=== PATIENT | female | born 1950 | race Caucasian/White ===

== ENCOUNTER → 2018-12-25 | Outpatient (CLI) | payer MEDICARE, OTHER, SELFPAY ==
[2018-12-25 08:56] LABS: Bacteria 0 SEEN /hpf (None Seen); Red Blood Cells-Urine 0 SEEN /hpf (0-5)
[2018-12-25 10:16] LABS: Absolute Lymphocyte Count 1.74 X10^3/uL (0.83-4.51); Absolute Neutrophil Count 5.6 X10^3/uL (2.0-7.7); Basophil# 0.06 X10^3/uL; Basophil% 0.7 % (0-1); Eosinophil# 0.28 X10^3/uL; Eosinophils% 3.4 % (0-5); Hematocrit 45.9 % (37-47); Hemoglobin 14.7 g/dL (12.0-15.0); Lymphocyte # 1.74 X10^3/ul (4.0); Lymphocyte % 21.3 % (19-41); Mean Corpuscular Hgb 28.8 pg (27.0-32.0); Mean Platelet Vol. 9.3 fl (6.2-12.0); Monocyte# 0.46 X10^3/uL; Monocyte% 5.6 % (0-10); NRBC Flagged by Analyzer 0 % (0-5); Neutrophil # 5.59 X10^3/uL (2.7-7.7); Neutrophil % 68.4 % (47-70); Platelet Count 321 K/mm3 (150-450); RBC Distribution Width CV 12.2 % (11.6-14.6); RBC Distribution Width SD 40.3 fl (35.1-43.9); White Blood Count 8.2 K/mm3 (4.4-11.0)
[2018-12-25 10:17] LABS: Color, Urine Yellow (Yellow); Glucose, Dipstick Normal (Normal); Ketone-Dipstick 5 mg/dl (Negative); Leukocyte Esterase-Dipstick 500 /ul (Negative); Nitrite-Dipstick Negative (Negative); Occult Blood-Urine 10 /ul (Negative); Protein-Dipstick 15 mg/dl (Negative); Specific Gravity, Urine 1.025 (1.002-1.030); Urine Bilirubin Dipstick Negative (Negative); Urine Clarity Sl. Cloudy (Clear); Urine Urobilinogen 1 mg/dl (Normal)
[2018-12-25 10:35] LABS: Hemoglobin A1c 5.8 % (4.2-6.3)
[2018-12-25 10:43] LABS: Hyaline Cast 10-25 SEEN /lpf (0-5); Squamous Epithelial Cells - UA 0-5 SEEN /hpf (5-10); White Blood Cells 5-10 SEEN /hpf (0-5)
[2018-12-25 10:44] LABS: Mucous, Urine 2+ /hpf (<or=2+)
[2018-12-25 10:49] LABS: ALB/GLOB Ratio 1.3 RATIO (0.9-2.4); AST(SGOT) 13 U/L (15-37); Alanine Aminotransfer ALT/SGPT 30 U/L (13-56); Albumin, Serum 3.8 g/dL (3.2-5.0); Alkaline Phosphatase 98 U/L (45-117); Anion Gap 5 (5-15); BUN 17 mg/dL (7-18); BUN/Creat Ratio 18.2 RATIO (10-20); Calcium,Total 8.9 mg/dL (8.5-10.1); Chloride 107 mmol/L (98-107); Creatinine, Serum 0.93 mg/dL (0.55-1.02); EST Glomerular Filtration Rate 64 mL/min (>60); Est Glom Filt Rate - Afr Amer 77 mL/min (>60); Globulin 2.9 g/dL (2.2-4.2); Glucose 67 mg/dL (74-106); Potassium 4.2 mmol/L (3.5-5.1); Protein, Total 6.7 g/dL (6.4-8.2); Sodium Level 142 mmol/L (136-145)
== END | disposition home or self-care (01) ==
LOC: MFPLAB 08:52
PROVIDERS: Family Provider Family Medicine; PCP Family Medicine; Referring Provider Family Medicine; Visit Provider Family Medicine
DX: R73.09 Other abnormal glucose (principal); N39.41 Urge incontinence
CPT/HCPCS: 36415; 80053; 81001; 83036; 85025

== ENCOUNTER → 2019-02-14 | Outpatient (CLI) | payer MEDICARE, OTHER, SELFPAY ==
--- NOTE | 2019-02-14 11:30 | LES_PTH ---
PATIENT: BELLA MONROY LOC: [facility] U#:[id number] AGE/SX: 69/F ROOM: RE02/14/[address]: Dr. Henrry Casey MD : 1950 BED: DIS: 02/14/2019 SPEC #: [id number] RECD: 02/14/19 14:15 STATUS: MARICRUZ REArelis #: [id number] JOSIAS: 02/14/19 11:[address]: Henrry Casey DEPT: SURGICAL PATHOLOGY RECD BY: Marito Valero ENTERED: 02/15/19 08:39 SP TYPE: Lesion OTHR DR: Dr. Marvin Smith MD Tissues: Skin of eyelid, NOS Procedures: Surgery Specimen Level IV HEADER OPERATION: RUL lesion excisional biopsy PRE-OP DIAGNOSIS: RUL lesion TISSUE SUBMITTED: RUL lesion MICROSCOPIC DIAGNOSIS RUL lesion, excisional biopsy: Minimal dermal chronic inflammation and minimal chronic folliculitis. Negative for malignancy. SJ:stan 02/18/19 COMMENT Results of are reported to Dr. Casey's office on 02/18/19. Correlation with clinical findings and appropriate follow up are necessary. Case has been reviewed in consultation with Dr. Go who concurs with the above diagnosis. IDC:AM MICROSCOPIC DESCRIPTION Slides are reviewed. GROSS DESCRIPTION Received in fixative is one container labeled with the patient's name and designated RUL lesion. The specimen consists of a piece of crow-white skin measuring 0.3 x 0.3 x 0.1 cm. The specimen is totally submitted in one cassette. / COOKIE:stan 02/15/19 TC:5 CPT: 80197
--- NOTE | 2019-02-18 10:00 | SKTAG_PTH ---
PATIENT: BELLA MONROY LOC: [facility] U#:[id number] AGE/SX: 69/F ROOM: RE02/14/[address]: Dr. Henrry Casey MD : 1950 BED: DIS: 02/14/2019 SPEC #: [id number] RECD: 02/18/19 12:10 STATUS: MARICRUZ SOL #: [id number] JOSIAS: 02/18/19 10:[address]: Henrry Casey DEPT: SURGICAL PATHOLOGY RECD BY: Marito Valero ENTERED: 02/18/19 13:17 SP TYPE: SKIN TAG KARINA DR: Dr. Marvin Smith MD Tissues: Axilla, NOS Procedures: Surgery Specimen Level III HEADER OPERATION: Skin tag removal PRE-OP DIAGNOSIS: Skin tag TISSUE SUBMITTED: Left axilla skin tags (x2) MICROSCOPIC DIAGNOSIS Skin tags of left axilla, excision: Fibroepithelial polyp. AM:stan 02/19/19 TC: MICROSCOPIC DESCRIPTION Slides are reviewed. GROSS DESCRIPTION Received in fixative is one container labeled with the patient's name and designated left axilla skin tags. The specimen consists of two fragments of crow-white skin each measuring 0.2 x 0.2 x 0.1 cm. The entire specimen is submitted in one cassette. / SJ:rg 02/18/19 TC:5 CPT: 00055
== END | disposition home or self-care (01) ==
LOC: LABSPEC 14:29
PROVIDERS: Family Provider Family Medicine; PCP Family Medicine; Referring Provider Ophthalmology; Visit Provider Ophthalmology
DX: L98.9 Disorder of the skin and subcutaneous tissue, unspecified (principal)
CPT/HCPCS: 88304; 88305

== ENCOUNTER → 2019-02-18 | Outpatient (CLI) | payer MEDICARE, OTHER, SELFPAY | END | disposition home or self-care (01) | LOC: LABSPEC 13:20 | PROVIDERS: Family Provider Family Medicine; PCP Family Medicine; Referring Provider Family Medicine; Visit Provider Family Medicine | DX: L91.8 Other hypertrophic disorders of the skin (principal) ==

== ENCOUNTER → 2019-04-18 | Outpatient (CLI) | payer MEDICARE, OTHER, SELFPAY ==
--- NOTE | 2019-04-18 15:29 | BI_ITS ---
MAMMOGRAPHY - BILATERAL SCREENING REASON FOR EXAM: Female, 69 years old. Routine annual screening examination. PERTINENT HISTORY: Sister with breast cancer. Mother with breast cancer. TECHNIQUE: Digital bilateral breast michaelle (3D mammographic acquisition) in the CC and MLO projections. 2-D mediolateral oblique (MLO) and craniocaudad (CC) views of both breasts were obtained. CAD: Full Field Digital Mammography with Computer Added Detection was performed. COMPARISON: No comparison mammograms available at this time. If any prior films become available, an addendum to this report can be generated. FINDINGS: Breast Composition: There are scattered areas of fibroglandular density. There are no dominant masses or suspicious calcifications. Small benign-appearing bilateral axillary lymph nodes. No other significant abnormalities are identified. BI/SCREEN MAMM (CAD) W/MICHAELLE BILAT IMPRESSION: Negative screening mammogram. Yearly followup mammogram recommended. (A) ASSESSMENT CATEGORY: BIRADS Category 2: Benign. A letter regarding these results will be sent to the patient by the facility within 30 days. Approximately 10% of breast cancers are not detected by mammography. A normal mammogram should not delay biopsy of a clinically suspicious abnormality. [id number] Electronically Signed: Otf Aguilera, at 10:02 EST , Service support ,
--- NOTE | 2019-04-18 15:33 | BD_ITS ---
STUDY: DUAL ENERGY X-RAY ABSORPTIOMETRY / DXA REASON FOR EXAM: Female, 69 years old. Early menopause. Loss of height. TECHNIQUE: Bone Mineral Density (BMD) measurements of lumbar spine and bilateral hips were obtained. COMPARISON: None. FINDINGS: Lumbar Spine (L1-L4): g/cm2 (1.168) / T-score (-0.3) / Z-score (1.4) Findings are suggestive of normal bone density with a low fracture risk. Left Femur Total: g/cm2 (0.942) / T-score (-0.5) / Z-score (0.8) Left Femoral Neck: g/cm2 (0.844) / T-score (-1.4) / Z-score (0.2) Right Femur Total: g/cm2 (0.954) / T-score (-0.4) / Z-score (0.9) Right Femoral Neck: g/cm2 (0.831) / T-score (-1.5) / Z-score (0.1) BD/Dexa Bone Density Study IMPRESSION: The patient is considered osteopenic as outlined below according to World [place] Organization (WHO) criteria with a low fracture risk. Reference Information: The T-score is the number of standard deviations above or below the standard which is normal for young adults at their peak bone mineral density. The World Health Organization (WHO) interprets the T-scores as follows: Above -1 Normal bone density Between -1 and -2.5 Osteopenia Equal to / or below -2.5 Osteoporosis As a practical clinical guideline, osteopenia may be graded as follows: Mild -1 through -1.5 Moderate -1.6 through -2.0 Severe -2.1 through -2.4 The Z-score is the number of standard deviations above or below age-matched controls. A Z-score of less than -1.5 would be considered abnormal. References: 1. NIH Osteoporosis and Related Bone Diseases http://www.osteo.org 2. International Society for Clinical Densitometry http://www.iscd.org 3. National Osteoporosis Foundation http://www.nof.org Electronically Signed: Oft Aguilera, at 10:32 EST , Service support ,
== END | disposition home or self-care (01) ==
LOC: OPBD 15:26
PROVIDERS: Family Provider Family Medicine; PCP Family Medicine; Referring Provider Family Medicine; Visit Provider Family Medicine
DX: Z78.0 Asymptomatic menopausal state (principal); Z12.31 Encounter for screening mammogram for malignant neoplasm of breast
CPT/HCPCS: 77063; 77067; 77080

== ENCOUNTER → 2019-05-28 11:33 | Outpatient (CLI) | payer MEDICARE, OTHER, SELFPAY ==
[2019-05-28 13:55] LABS: Vitamin D,25 Hydroxy 13.1 ng/mL (29.95-100.01)
[2019-05-28 13:58] LABS: Phosphorus 2.9 mg/dL (2.5-4.9)
== END ==
PROVIDERS: Family Provider Family Medicine; PCP Family Medicine; Referring Provider Family Medicine; Visit Provider Family Medicine
DX: M85.80 Other specified disorders of bone density and structure, unspecified site (principal)
CPT/HCPCS: 36415; 82306; 84100

== ENCOUNTER → 2019-05-30 10:11 | Outpatient (CLI) | payer MEDICARE, OTHER, SELFPAY ==
[2019-05-30 10:21] LABS: Mucous, Urine 0 SEEN /hpf (<or=2+)
[2019-05-30 12:29] LABS: Absolute Lymphocyte Count 1.57 X10^3/uL (0.83-4.51); Absolute Neutrophil Count 4.8 X10^3/uL (2.0-7.7); Basophil# 0.03 X10^3/uL; Basophil% 0.4 % (0-1); Eosinophil# 0.26 X10^3/uL; Eosinophils% 3.7 % (0-5); Hematocrit 41.5 % (37-47); Hemoglobin 13.3 g/dL (12.0-15.0); Lymphocyte # 1.57 X10^3/ul (4.0); Lymphocyte % 22.3 % (19-41); Mean Corpuscular Hgb 28.6 pg (27.0-32.0); Mean Corpuscular Volume 89.2 fL (81-99); Mean Platelet Vol. 9.7 fl (6.2-12.0); Monocyte# 0.38 X10^3/uL; Monocyte% 5.4 % (0-10); NRBC Flagged by Analyzer 0 % (0-5); Neutrophil # 4.77 X10^3/uL (2.7-7.7); Neutrophil % 67.9 % (47-70); Platelet Count 312 K/mm3 (150-450); RBC Distribution Width CV 12.7 % (11.6-14.6); RBC Distribution Width SD 41.2 fl (35.1-43.9); Red Blood Count 4.65 M/mm3 (4.2-5.4)
[2019-05-30 12:40] LABS: Color, Urine Yellow (Yellow); Glucose, Dipstick Normal (Normal); Ketone-Dipstick Negative (Negative); Leukocyte Esterase-Dipstick 500 /ul (Negative); Nitrite-Dipstick Negative (Negative); Occult Blood-Urine 10 /ul (Negative); Protein-Dipstick Negative (Negative); Specific Gravity, Urine 1.025 (1.002-1.030); Urine Bilirubin Dipstick Negative (Negative); Urine Clarity Sl. Cloudy (Clear); Urine Urobilinogen Normal (Normal)
[2019-05-30 12:50] LABS: Bacteria 1+ /hpf (None Seen); Red Blood Cells-Urine 0-5 SEEN /hpf (0-5); Squamous Epithelial Cells - UA 0-5 SEEN /hpf (5-10); White Blood Cells 25-50 SEEN /hpf (0-5)
[2019-05-30 12:52] LABS: ALB/GLOB Ratio 1.2 RATIO (0.9-2.4); AST(SGOT) 12 U/L (15-37); Alanine Aminotransfer ALT/SGPT 24 U/L (13-56); Albumin, Serum 3.8 g/dL (3.2-5.0); Alkaline Phosphatase 91 U/L (45-117); Anion Gap 5 (5-15); BUN 17 mg/dL (7-18); BUN/Creat Ratio 17.8 RATIO (10-20); Calcium,Total 8.8 mg/dL (8.5-10.1); Chloride 108 mmol/L (98-107); Cholesterol 178 mg/dL (200); Creatinine, Serum 0.96 mg/dL (0.55-1.02); EST Glomerular Filtration Rate 62 mL/min (>60); Est Glom Filt Rate - Afr Amer 75 mL/min (>60); Globulin 3.3 g/dL (2.2-4.2); Glucose 91 mg/dL (74-106); High Density Lipoprotein 53 mg/dL; Potassium 3.6 mmol/L (3.5-5.1); Protein, Total 7.1 g/dL (6.4-8.2); Sodium Level 142 mmol/L (136-145); Triglycerides 110 mg/dL; Very Low Density Lipoprotein 22 mg/dL (5-40)
[2019-05-30 13:24] LABS: Hemoglobin A1c 6.1 % (4.2-6.3)
== END ==
PROVIDERS: Family Provider Family Medicine; PCP Family Medicine; Referring Provider Family Medicine; Visit Provider Family Medicine
DX: Z00.00 Encounter for general adult medical examination without abnormal findings (principal); R73.02 Impaired glucose tolerance (oral)
CPT/HCPCS: 36415; 80053; 80061; 81001; 83036; 85025

== ENCOUNTER → 2019-11-27 09:59 | Outpatient (CLI) | payer MEDICARE, OTHER, SELFPAY ==
[2019-11-27 13:04] LABS: Vitamin D,25 Hydroxy 70.7 ng/mL
[2019-11-27 13:14] LABS: Hemoglobin A1c 5.4 % (3.8-5.6)
[2019-11-27 13:24] LABS: ALB/GLOB Ratio 1.1 RATIO (0.9-2.4); AST(SGOT) 12 U/L (15-37); Alanine Aminotransfer ALT/SGPT 28 U/L (13-56); Albumin, Serum 3.8 g/dL (3.2-5.0); Alkaline Phosphatase 83 U/L (45-117); Anion Gap 8 (5-15); BUN 16 mg/dL (7-18); BUN/Creat Ratio 15.5 RATIO (10-20); Calcium,Total 8.9 mg/dL (8.5-10.1); Chloride 107 mmol/L (98-107); Creatinine, Serum 1.03 mg/dL (0.55-1.02); EST Glomerular Filtration Rate 57 mL/min (>60); Est Glom Filt Rate - Afr Amer 69 mL/min (>60); Globulin 3.4 g/dL (2.2-4.2); Glucose 99 mg/dL (74-106); Potassium 3.7 mmol/L (3.5-5.1); Protein, Total 7.2 g/dL (6.4-8.2); Sodium Level 141 mmol/L (136-145)
== END ==
PROVIDERS: PCP Family Medicine; Visit Provider Family Medicine
DX: R73.02 Impaired glucose tolerance (oral) (principal); M85.80 Other specified disorders of bone density and structure, unspecified site; E55.9 Vitamin D deficiency, unspecified
CPT/HCPCS: 36415; 80053; 82306; 83036; 84100

== ENCOUNTER → 2020-04-24 10:12 | Outpatient (CLI) | payer MEDICARE, OTHER, SELFPAY ==
--- NOTE | 2020-04-24 10:24 | BI_ITS ---
MAMMOGRAPHY - BILATERAL SCREENING REASON FOR EXAM: Female, 70 years old. Routine annual screening examination. PERTINENT HISTORY: Sister with breast cancer. Mother with breast cancer. TECHNIQUE: Digital bilateral breast michaelle (3D mammographic acquisition) in the CC and MLO projections. 2-D mediolateral oblique (MLO) and craniocaudad (CC) views of both breasts were obtained. CAD: Full Field Digital Mammography with Computer Added Detection was performed. COMPARISON: Comparison is made with prior study dated 04/18/2019. FINDINGS: Breast Composition: There are scattered areas of fibroglandular density. There are no dominant masses or suspicious calcifications. Stable small benign-appearing bilateral axillary lymph nodes. No other significant abnormalities are identified. There has been no significant change since the prior study. BI/SCREEN MAMM (CAD) W/MICHAELLE BILAT IMPRESSION: Stable bilateral screening mammogram. Yearly follow-up mammogram recommended. (A) ASSESSMENT CATEGORY: BIRADS Category 2: Benign. A letter regarding these results will be sent to the patient by the facility within 30 days. Approximately 10% of breast cancers are not detected by mammography. A normal mammogram should not delay biopsy of a clinically suspicious abnormality. [id number] Electronically Signed: Otf Aguilera, at 11:17 EST , Service support ,
== END ==
PROVIDERS: PCP Family Medicine; Referring Provider Family Medicine; Visit Provider Family Medicine
DX: Z12.31 Encounter for screening mammogram for malignant neoplasm of breast (principal)
CPT/HCPCS: 77063; 77067

== ENCOUNTER 2020-08-10 17:07 | Outpatient (RCR) | payer MEDICARE, OTHER, SELFPAY | END 2020-08-10 23:59 | LOC: IMMUN 17:07 | PROVIDERS: PCP Family Medicine; Visit Provider Family Medicine | DX: Z23 Encounter for immunization (principal) | CPT/HCPCS: 0011A; 0012A ==

== ENCOUNTER → 2020-09-23 11:03 | Outpatient (CLI) | payer MEDICARE, OTHER, SELFPAY ==
[2020-09-23 13:05] LABS: Hemoglobin A1c 5.6 % (3.8-5.6)
[2020-09-23 13:20] LABS: ALB/GLOB Ratio 1.2 RATIO (0.9-2.4); AST(SGOT) 11 U/L (15-37); Alanine Aminotransfer ALT/SGPT 28 U/L (13-56); Albumin, Serum 3.6 g/dL (3.2-5.0); Alkaline Phosphatase 88 U/L (45-117); Anion Gap 4 (5-15); BUN 17 mg/dL (7-18); BUN/Creat Ratio 19.3 RATIO (10-20); Calcium,Total 8.9 mg/dL (8.5-10.1); Chloride 108 mmol/L (98-107); Creatinine, Serum 0.88 mg/dL (0.55-1.02); EST Glomerular Filtration Rate 68 mL/min (>60); Est Glom Filt Rate - Afr Amer 82 mL/min (>60); Globulin 3.1 g/dL (2.2-4.2); Glucose 88 mg/dL (74-106); Potassium 3.7 mmol/L (3.5-5.1); Protein, Total 6.7 g/dL (6.4-8.2); Sodium Level 140 mmol/L (136-145)
== END ==
PROVIDERS: PCP Family Medicine; Referring Provider Family Medicine; Visit Provider Family Medicine
DX: R73.02 Impaired glucose tolerance (oral) (principal); E55.9 Vitamin D deficiency, unspecified
CPT/HCPCS: 36415; 80053; 82306; 83036

== ENCOUNTER 2020-11-12 13:16 | Observation (INO) | payer MEDICARE, OTHER, SELFPAY ==
[2020-11-12] VITALS (8 sets, daily range): BP systolic 136–187; BP diastolic 81–93; PULSE 70–90; RESP 16–19; TEMP 36.7–36.8; O2SAT 93–99; BMI 20.8; BMI 31.4
--- NOTE | 2020-11-12 13:25 | EKG12_ITS ---
Test Reason : CP Blood Pressure : / mmHG Vent. Rate : 087 BPM Atrial Rate : 087 BPM P-R Int : 166 ms QRS Dur : 088 ms QT Int : 370 ms P-R-T Axes : 066 068 075 degrees QTc Int : 445 ms Normal sinus rhythm Normal ECG Confirmed by CAROL ANN VENTURA, JAEL ([id number]), editorial intern IVETTE SOLARES ([id number]) on 11/16/2020 9:49:35 AM Referred By: Confirmed By:JAEL MAHARAJ MD
--- NOTE | 2020-11-12 13:25 | RAD_ITS ---
STUDY: X-RAY CHEST REASON FOR EXAM: Female, 70 years old. Left-sided chest pain. TECHNIQUE: Single AP portable view of the chest. COMPARISON: None. FINDINGS: EKG electrodes are seen. The lungs are clear and expanded. There is no demonstrated pleural abnormality. Normal size heart. Normal mediastinum and katie. Normal visualized pulmonary arteries. Normal visualized aortic arch and descending thoracic aorta. There are diffuse degenerative changes of the visualized thoracic spine. Normal visualized ribs, clavicles, and shoulders. There is no demonstrated abnormality of the visualized soft tissue structures of the upper abdomen. RAD/Chest 1 View (Portable) IMPRESSION: Normal x-ray examination of the chest. Electronically Signed: Otf Aguilera MD at 14:18 EDT , Service support ,
--- NOTE | 2020-11-12 13:25 | EDS_ITS ---
HPI History of Present Illness Chief Complaint: Chest Pain Informant: patient Narrative Narrative: 70-year-old female presents the emergency department for the evaluation of chest pain. She states when she got up this morning she felt fatigued and rested more than she would normally would. She went out she walked the dog when she came back she started to develop an ache on the left side of her chest. It gradually got worse. She thought perhaps she had strained her chest she took some Motrin. She notes it radiates up towards the left shoulder. She notes sweating and dyspnea. She states it does seem to wax and wane over the past 1 hour and 15 minutes. She denies any significant medical problems. She is currently treated for depression. She denies having heart cath or stress test in the past. She is a non-smoker. [facility] Medical History (Updated 11/12/20 @ 13:[address] Ja Paige DO) Depression Home Medications bupropion HCl 100 mg PO BID 11/12/20 [History Last Taken Unknown] bupropion HCl 200 mg PO BREAKFAST 11/12/20 [History Last Taken Unknown] venlafaxine 75 mg PO TID 11/12/20 [History Last Taken Unknown] Allergy/AdvReac Type Severity Reaction Status Date / Time No Known Allergies Allergy Verified 11/12/20 13:20 Social History (Updated 11/12/20 @ 13:[address] Ja Paige DO) Smoking Status: Never smoker substance use type: does not use ROS ROS ED Constitutional Constitutional ED: Denies chills or weight loss Eyes Eyes: Denies change in vision or diplopia ENT ENT ED: Denies ear pain, rhinorrhea or sore throat Cardiovascular Cardiovascular: Reports chest pain; Denies orthopnea, palpitations or racing heartbeat Respiratory/Chest Respiratory/Chest: Reports dyspnea; Denies cough or orthopnea Gastrointestinal Gastrointestinal: Denies abdominal pain, diarrhea, nausea or vomiting Genitourinary Genitourinary ED: Denies dysuria, hematuria or urinary frequency Musculoskeletal Musculoskeletal: Denies arthralgias or myalgias Integumentary Denies abscess or rash Neurologic Neurologic: Denies headache(s) or weakness Psychiatric Psychiatric: Denies anxiety, depression, suicidal ideation or suicidal thoughts Endocrine Endocrinology: Denies polydipsia, polyphagia or polyuria Allergic/Immunologic Allergic/Immunologic ED: Denies mouth swelling, tongue swelling or urticaria EXAM Physical Exam Const Vital Signs: 11/12/20 13:17 11/12/20 13:21 11/12/20 13:45 Temperature 98.2 F Temperature Source Oral Pulse Rate 90 80 Respiratory Rate 19 H Respiratory Effort Normal Non-Labored Blood Pressure 187/93 H 155/81 H Blood Pressure Mean 124 Pulse Ox 99 Oxygen Delivery Method Room Air Positive well nourished and well developed General Appearance ED: well developed HEENT Reports normocephalic, head/scalp atraumatic and moist mucous membranes Eyes PERRL and EOMs intact bilaterally Neck no lymphadenopathy, supple and no JVD Resp normal respiratory effort and clear to auscultation bilaterally Cardio regular rate, regular rhythm and no murmurs GI normal to inspection, nondistended, normoactive bowel sounds and non-tender Palpation: soft Back/Spine no CVA tenderness and normal ROM Extremity normal to inspection General Extremety ED: Negative for edema General Extremity: Negative for edema Neuro oriented x3 and CN's II-XII intact bilaterally Sensorium / Orientation: alert Motor Exam: strength 5/5 throughout Psych mental status grossly normal Mood & Affect: Negative for depressed or tearful Skin no rashes or lesions noted and no wounds Skin Narrative: Patient has diaphoresis Heart Score History: Highly Suspicious ECG: Normal Age: >/= 65 years Risk Factors: 1 or 2 Risk Factors Troponin: </= Normal Limit Score: 5 MDM MDM MDM Narrative Medical decision making narrative: My interpretation of the chest x-ray is no acute process. D-dimer in the normal range. Troponin is negative. EKG does not show any ischemic changes. 70-year-old female with sudden onset of left chest pain and diaphoresis after exertion that was fully relieved with nitroglycerin. Heart score is 5. I will speak with our hospitalist for admission. Lab Data Labs: Laboratory Results - last 24 hr 11/12/20 11/12/20 11/12/20 13:25 13:25 13:25 WBC 7.0 RBC 5.22 Hgb 14.8 Hct 45.8 MCV 87.7 MCH 28.4 MCHC 32.3 RDW Std Deviation 39.9 RDW Coeff of Tricia 12.4 Plt Count 312 MPV 9.3 Immature Gran % (Auto) 0.400 Neut % (Auto) 66.1 Lymph % (Auto) 24.2 Desha % (Auto) 5.0 Eos % (Auto) 3.6 Baso % (Auto) 0.7 Absolute Neuts (auto) 4.6 Absolute Lymphs (auto) 1.69 Nucleated RBC % 0 D-Dimer Quant (PE/DVT) 0.36 Sodium 141 Potassium 3.9 Chloride 103 Carbon Dioxide 31.0 Anion Gap 7 BUN 17 Creatinine 1.02 Estim Creat Clear Calc 48.75 Est GFR (MDRD) Af Amer 69 Est GFR (MDRD) Non-Af 57 L BUN/Creatinine Ratio 16.7 Glucose 120 H Calcium 9.1 Troponin I < 0.015 EKG Initial EKG: Attestation: I personally reviewed and interpreted this EKG as follows: Comments: EKG demonstrates a normal sinus rhythm at a rate of 87. No concerning features of ACS or ectopy noted. Discharge Plan Dx/Rx/DC Orders Clinical Impression: Chest pain Disposition Disposition: Acute Care Hospital [facility]
[2020-11-12 13:40] LABS: Absolute Lymphocyte Count 1.69 X10^3/uL (0.83-4.51); Absolute Neutrophil Count 4.6 X10^3/uL (2.0-7.7); Basophil# 0.05 X10^3/uL; Basophil% 0.7 % (0-1); Eosinophil# 0.25 X10^3/uL; Eosinophils% 3.6 % (0-5); Hematocrit 45.8 % (37-47); Hemoglobin 14.8 g/dL (12.0-15.0); Lymphocyte # 1.69 X10^3/ul (0.83-4.51); Lymphocyte % 24.2 % (19-41); Mean Corp Hgb Conc 32.3 g/dL (32-36); Mean Corpuscular Hgb 28.4 pg (27.0-32.0); Mean Corpuscular Volume 87.7 fL (81-99); Mean Platelet Vol. 9.3 fl (6.2-12.0); Monocyte# 0.35 X10^3/uL; NRBC Flagged by Analyzer 0 % (0-5); Neutrophil # 4.62 X10^3/uL (2.7-7.7); Neutrophil % 66.1 % (47-70); Platelet Count 312 K/mm3 (150-450); RBC Distribution Width CV 12.4 % (11.6-14.6); RBC Distribution Width SD 39.9 fl (35.1-43.9); Red Blood Count 5.22 M/mm3 (4.2-5.4)
[2020-11-12] MEDS: Aspirin 81 MG TAB.CHEW 324 MG PO (13:44)
[2020-11-12] MEDS: Nitroglycerin SL (ED/IMG/CATH) 0.4 MG TABLET SL (13:45)
[2020-11-12 13:46] LABS: D-Dimer Quantitative (DVT/PE) 0.36 FEU/ug/m (0.27-0.49)
[2020-11-12 13:50] LABS: Anion Gap 7 (5-15); BUN 17 mg/dL (7-18); BUN/Creat Ratio 16.7 RATIO (10-20); Calcium,Total 9.1 mg/dL (8.5-10.1); Chloride 103 mmol/L (98-107); Creatinine, Serum 1.02 mg/dL (0.55-1.02); EST Glomerular Filtration Rate 57 mL/min (>60); Est Glom Filt Rate - Afr Amer 69 mL/min (>60); Estimated Creatinine Clearance 48.75 ml/min; Glucose 120 mg/dL (74-106); Potassium 3.9 mmol/L (3.5-5.1); Sodium Level 141 mmol/L (136-145)
--- NOTE | 2020-11-12 14:00 | PCM.HP.STD ---
HPI - General General Date of Admission: 11/12/20 Date of Service: 11/12/20 Chief Complaint: Chest pain HPI Narrative The patient is a 70 y/o F w/ PMHx: Anxiety and Depression who presents to the [facility] ED on 11/12/20 with history of onset of chest discomfort while out walking her dog noted that she had been specifically fatigued earlier in the day with left-sided chest aching/mild pressure like in sensation concurrently, rated 5/10 in severity, worsening with eventual radiation toward the left shoulder with associated diaphoresis and dyspnea, waxing and waning over the past approximate 1-1/2 hours prior to ED presentation but given not improving prompted ED evaluation. Patient did attempt self administration of Motrin without marked relief. She did note some improvement just prior to ED arrival. Patient eventually was administered nitroglycerin and had complete relief of her discomfort. Work-up in the ED included T 98 2, heart rate 90, BP initially 187/93 with repeat 155/81, respiratory rate 19, 99% on room air, CBC with WBC 7, hemoglobin 14.8, platelet 312 without shift, D-dimer 0.36, BMP unremarkable aside glucose 120, troponin less than 0.015, chest x-ray with no acute cardiopulmonary findings, EKG with sinus rhythm with no acute evidence of ischemia. [facility] Medical History (Updated 11/12/20 @ 14:[address] Denise Cota MD) Anxiety and depression Home Medications bupropion HCl 100 mg PO BID 11/12/20 [History Last Taken Unknown] bupropion HCl 200 mg PO BREAKFAST 11/12/20 [History Last Taken Unknown] calcium carbonate [Calcium 600] 600 mg PO DAILY 11/12/20 [History Last Taken 11/12/20] cyanocobalamin (vitamin B-12) [Vitamin B-12] 500 mcg PO DAILY 11/12/20 [History Last Taken 11/12/20] venlafaxine 75 mg PO TID 11/12/20 [History Last Taken Unknown] Allergy/AdvReac Type Severity Reaction Status Date / Time No Known Allergies Allergy Verified 11/12/20 13:20 Family History (Updated 11/12/20 @ 14:[address] Denise Cota MD) Mother Cancer Mother with history of breast CA. Heart disease CHF Father Heart disease Congenital heart disease, unclear specific type, possibly valve related. Surgical History (Updated 11/12/20 @ 14:[address] Denise Cota MD) Hx of appendectomy S/p bilateral carpal tunnel release S/P tonsillectomy and adenoidectomy S/P total hysterectomy and bilateral salpingo-oophorectomy Social History (Updated 11/12/20 @ 14:[address] Denise Cota MD) household members: spouse Smoking Status: Never smoker alcohol intake: current details: Occasional EtOH intake. substance use type: does not use ROS ROS Narrative Admission Review of Systems: CONSTITUTIONAL: No weight loss, fever, chills, + weakness or fatigue. HEENT: Eyes: No visual loss, blurred vision, double vision or yellow sclerae. Ears, Nose, Throat: No hearing loss, sneezing, congestion, runny nose or sore throat. SKIN: No rash or itching, lesions, wounds. CARDIOVASCULAR: + chest pain, chest pressure or chest discomfort, No palpitations, edema, orthopnea, syncopal events. RESPIRATORY: + shortness of breath, No cough or sputum, wheezing, hemoptysis. GASTROINTESTINAL: No anorexia, nausea, vomiting or diarrhea, abdominal pain, melena, BRBPR. GENITOURINARY: No dysuria, frequency, urgency or retention. NEUROLOGICAL: No headache, dizziness, syncope, paralysis, ataxia, numbness or tingling in the extremities, focal weakness, change in bowel or bladder control, seizure. MUSCULOSKELETAL: No muscle, back pain, joint pain or stiffness. HEMATOLOGIC: No anemia, bleeding or bruising. LYMPHATICS: No enlarged nodes. No history of splenectomy. PSYCHIATRIC: No history of depression or anxiety. ENDOCRINOLOGIC: + reports of sweating, No cold or heat intolerance. No polyuria or polydipsia. ALLERGIES: No history of asthma, hives, eczema or rhinitis. Vital Signs Vital Signs Vital Signs: 11/12/20 13:17 11/12/20 13:21 11/12/20 13:45 Temperature 98.2 F Temperature Source Oral Pulse Rate 90 80 Respiratory Rate 19 H Respiratory Effort Normal Non-Labored Blood Pressure 187/93 H 155/81 H Blood Pressure Mean 124 Pulse Ox 99 Oxygen Delivery Method Room Air Weight Weight: 128 lb 15.527 oz Body Mass Index (BMI) 20.8 Physical Exam Narrative Physical Examination: General: awake, alert, oriented x 3 and cooperative, seated upright in the ED bed in no apparent distress, notes chest discomfort completely resolved. Skin: normal color, turgor, no icterus, cyanosis. HEENT: AT/NC, EOMI, PERRLA, MMM, no carotid bruits or JVD noted. Lungs: CTA bilaterally, moderate effort, mild decrease BL bases, no rales, ronchi or wheezing. Heart: Regular rate and rhythm; no gallop, rub audible. Abdomen: soft, NTTP, ND, normal BS, no HSM. Extremities: no cyanosis, clubbing, or edema. Neurological: patient awake, alert, oriented as noted, cognitive function intact; pupils equally reactive to light and accommodation, cranial nerves II-XII grossly normal, moving all 4 extremities, no focal deficits, strength preserved. Psychiatric: affect appears normal, no acute evidence of depressive or anxiety feelings. Results Lab / Micro Data Result Diagrams: 11/12/20 13:25 11/12/20 13:25 Labs: Laboratory Results - last 24 hr 11/12/20 11/12/20 11/12/20 13:25 13:25 13:25 WBC 7.0 RBC 5.22 Hgb 14.8 Hct 45.8 MCV 87.7 MCH 28.4 MCHC 32.3 RDW Std Deviation 39.9 RDW Coeff of Tricia 12.4 Plt Count 312 MPV 9.3 Immature Gran % (Auto) 0.400 Neut % (Auto) 66.1 Lymph % (Auto) 24.2 [place] % (Auto) 5.0 Eos % (Auto) 3.6 Baso % (Auto) 0.7 Absolute Neuts (auto) 4.6 Absolute Lymphs (auto) 1.69 Nucleated RBC % 0 D-Dimer Quant (PE/DVT) 0.36 Sodium 141 Potassium 3.9 Chloride 103 Carbon Dioxide 31.0 Anion Gap 7 BUN 17 Creatinine 1.02 Estim Creat Clear Calc 48.75 Est GFR (MDRD) Af Amer 69 Est GFR (MDRD) Non-Af 57 L BUN/Creatinine Ratio 16.7 Glucose 120 H Calcium 9.1 Troponin I < 0.015 Assessment & Plan Assessment/Plan (1) Chest pain: QUALIFIERS: Chest pain type: unspecified Qualified Code(s): R07.9 - Chest pain, unspecified (2) Elevated BP without diagnosis of hypertension: PLAN: The patient is a 70 y/o F w/ PMHx: Anxiety and Depression who presents to the [facility] ED on 11/12/20 with history of onset of chest discomfort while out walking her dog noted that she had been specifically fatigued earlier in the day with left-sided chest aching, worsening with eventual radiation toward the left shoulder with associated diaphoresis and dyspnea. 1. Chest Pain: EKG in ED with sinus rhythm with no acute evidence of ischemia, CXR w/ no acute cardiopulmonary findings, initial trop less than 0.015. Will admit to PCU, place on a monitored bed to assure no acute myocardial infarction with serial cardiac enzymes and EKGs. If repeat serial enzymes and EKGs remain unremarkable will pursue a.m. cardiac stress testing. Patient presentation history is concerning thus would not be surprised if cardiac enzymes increased. If enzymes increase or EKG changes or chest discomfort recurrence not improving would obtain Cardiology consultation. Magnesium level requested. FLP in AM. ASA, NG, morphine. 2. Elevated BP without hypertensive diagnosis: Admission BP and repeat notably elevated, no history, will continue to monitor and if elevated initiate regimen, will have as needed IV hydralazine in the interim. 3. Hyperglycemia: Glucose 120 upon presentation, if continued elevations may consider hemoglobin A1c to be thorough. 4. Anxiety and depression: We will continue patient home venlafaxine and bupropion regimen. 5. DVT Prophylaxis: SCDs, lovenox. Charges/Coding Visit Charges OBSV E&M: 25624 Initial observation care L3
[2020-11-12 14:24] LABS: Magnesium 2.2 mg/dL (1.6-2.6)
--- NOTE | 2020-11-12 14:32 | EKG12_ITS ---
Test Reason : CHEST PAIN Blood Pressure : / mmHG Vent. Rate : 068 BPM Atrial Rate : 068 BPM P-R Int : 174 ms QRS Dur : 086 ms QT Int : 406 ms P-R-T Axes : 066 071 090 degrees QTc Int : 431 ms Normal sinus rhythm Normal ECG Confirmed by CAROL ANN VENTURA, JAEL ([id number]), publications editor IVETTE SOLARES ([id number]) on 11/17/2020 10:32:02 AM Referred By: SHADI SWEENEY Confirmed By:JAEL MAHARAJ MD
[2020-11-12] MEDS: 0.9% Normal Saline 1,000 ML 100 ML IV (15:54)
[2020-11-12] MEDS: buPROPion (SR) 100 MG TABLET.SA PO (18:39)
[2020-11-12] MEDS: Venlafaxine HCl 75 MG Tablet PO (22:19)
[2020-11-13] MEDS: 0.9% Normal Saline 1,000 ML 100 ML IV ×2 (01:02→11:48)
[2020-11-13 02:25] VITALS: BP 149/91; PULSE 75; RESP 15; TEMP 36.8; O2SAT 97
[2020-11-13 03:01] VITALS: PULSE 77
[2020-11-13 04:39] LABS: Absolute Lymphocyte Count 2.09 X10^3/uL (0.83-4.51); Absolute Neutrophil Count 4.8 X10^3/uL (2.0-7.7); Basophil# 0.04 X10^3/uL; Basophil% 0.5 % (0-1); Eosinophil# 0.29 X10^3/uL; Eosinophils% 3.8 % (0-5); Hematocrit 44.9 % (37-47); Hemoglobin 14.5 g/dL (12.0-15.0); Lymphocyte # 2.09 X10^3/ul (0.83-4.51); Lymphocyte % 27.4 % (19-41); Mean Corp Hgb Conc 32.3 g/dL (32-36); Mean Corpuscular Hgb 28.8 pg (27.0-32.0); Mean Corpuscular Volume 89.1 fL (81-99); Mean Platelet Vol. 9.3 fl (6.2-12.0); Monocyte# 0.39 X10^3/uL; Monocyte% 5.1 % (0-10); NRBC Flagged by Analyzer 0 % (0-5); Neutrophil # 4.78 X10^3/uL (2.7-7.7); Neutrophil % 62.7 % (47-70); Platelet Count 289 K/mm3 (150-450); RBC Distribution Width CV 12.5 % (11.6-14.6); RBC Distribution Width SD 40.6 fl (35.1-43.9); Red Blood Count 5.04 M/mm3 (4.2-5.4); White Blood Count 7.6 K/mm3 (4.4-11.0)
[2020-11-13 05:02] LABS: AST(SGOT) 20 U/L (15-37); Alanine Aminotransfer ALT/SGPT 29 U/L (13-56); Albumin, Serum 3.4 g/dL (3.2-5.0); Alkaline Phosphatase 95 U/L (45-117); Anion Gap 6 (5-15); BUN 16 mg/dL (7-18); BUN/Creat Ratio 17.1 RATIO (10-20); Chloride 110 mmol/L (98-107); Cholesterol 173 mg/dL (200); Creatinine, Serum 0.94 mg/dL (0.55-1.02); EST Glomerular Filtration Rate 63 mL/min (>60); Est Glom Filt Rate - Afr Amer 76 mL/min (>60); Estimated Creatinine Clearance 51.54 ml/min; Globulin 3.4 g/dL (2.2-4.2); Glucose 96 mg/dL (74-106); High Density Lipoprotein 45 mg/dL; Potassium 4.2 mmol/L (3.5-5.1); Protein, Total 6.8 g/dL (6.4-8.2); Sodium Level 140 mmol/L (136-145); Triglycerides 169 mg/dL; Very Low Density Lipoprotein 34 mg/dL (5-40)
--- NOTE | 2020-11-13 05:55 | STEWCON_ITS ---
Reason For Study: Chest Pain Stress Results Protocol: Stuart Protocol WITH DEFINITY Maximum Predicted HR: 152 bpm Target HR: 129 bpm % Maximum Predicted HR: 82 % DurationHeart Rate Stage (mm:ss) (bpm) BP Comment Baseline 73 124/90No Chest Pain; 3 ML Diluted Definity Given Stuart Protocol Stage I 3:00 100 134/88No Chest Pain Stuart Protocol Stage II 3:00 115 152/84No Chest Pain; Mild Dyspnea Stuart Protocol Stage III 1:00 125 / No Chest Pain; Moderate Dyspnea Recovery 90 134/92No Chest Pain; No Dyspnea Stress Duration: 7:00 mm:ss Maximum Stress HR: 125 bpm METS: 10 Baseline Echocardiogram Findings Stress Echo Wall motion Data Resting WM Intermediate WM Stress WM Resting Wall Motion Wall Motion Stress All segments Normal. All segments Hyperkinetic. Ejection Fraction 55 %. Ejection Fraction 65 %. Stress Results Heart rate response: Appropriate Blood pressure response: Resting hypertension-appropriate response Arrhythmias: Isolated premature ectopic complex during exercise Functional capacity: Good Stopped secondary to: Dyspnea. EKG Data Baseline ECG: Sinus rhythm. Peak exercise ECG: No obvious ECG changes. Symptoms with Stress No complaint of chest discomfort during exercise or recovery. ECHO/Stress Test Echo W/Contrast Interpretation Summary Contrast injection performed Negative (adequate) stress echocardiogram Ordering Physician: Denise Cota Referring Physician: Phillip Castro Performed By: Mandy Gomez RDCS
--- NOTE | 2020-11-13 05:55 | EKG12_ITS ---
Test Reason : AM EKG Blood Pressure : / mmHG Vent. Rate : 068 BPM Atrial Rate : 068 BPM P-R Int : 176 ms QRS Dur : 086 ms QT Int : 392 ms P-R-T Axes : 066 073 093 degrees QTc Int : 416 ms Normal sinus rhythm Normal ECG Confirmed by CAROL ANN VENTURA, JAEL ([id number]), purchasing expeditor IVETTE SOLARES ([id number]) on 11/17/2020 10:43:12 AM Referred By: DR SWEENEY Confirmed By:JAEL MAHARAJ MD
[2020-11-13 06:36] VITALS: PULSE 67
[2020-11-13 06:37] VITALS: BP 124/68; PULSE 73; RESP 17; TEMP 36.5; O2SAT 95
[2020-11-13] MEDS: Aspirin E.C. 81 MG Tablet PO (06:41)
[2020-11-13] MEDS: Venlafaxine HCl 75 MG Tablet PO (06:42)
[2020-11-13 08:44] VITALS: O2SAT 95
[2020-11-13 09:54] VITALS: BP 139/88; PULSE 77; RESP 18; TEMP 36.4; O2SAT 98
[2020-11-13] MEDS: Famotidine 20 MG Tablet PO (09:56)
[2020-11-13] MEDS: buPROPion (SR) 100 MG TABLET.SA PO (10:53)
--- NOTE | 2020-11-13 12:49 | DS.PCM_ITS ---
Providers Date of Admission: 11/12/20 Primary Care Physician: Dr. Marvin Smith MD Reason For Visit: chest pain Diagnosis Discharge Diagnosis (1) Chest pain: Status: Acute Code(s): R07.9 - Chest pain, unspecified Qualifiers: Chest pain type: unspecified Qualified Code(s): R07.9 - Chest pain, unspecified (2) Elevated BP without diagnosis of hypertension: Status: Acute Code(s): R03.0 - Elevated blood-pressure reading, without diagnosis of hypertension Medications at Discharge Home Medications bupropion HCl 100 mg PO BID 11/12/20 bupropion HCl 200 mg PO BREAKFAST 11/12/20 calcium carbonate [Calcium 600] 600 mg PO DAILY 11/12/20 cyanocobalamin (vitamin B-12) [Vitamin B-12] 500 mcg PO DAILY 11/12/20 venlafaxine 75 mg PO TID 11/12/20 Hospital Course Operations None Procedures Stress test Summary of Care Provided Minutes Spent on Discharge: 35 Hospital Course: Patient is a 70 y/o F with a PMh as outlined which includes anxiety and depression who was admitted with a complaint of retrosternal chest pain, which radiated towards the left shoulder. She had associated diaphoresis and shortness of breath. Chest pain was waxing and waning and lasted for 1-1.5 hours prior to admission. Troponins x 3 were negative. CXR showed no acute cardiopulmonary process, and EKG showed no acute ST changes. She was admitted to be managed for chest pain to r/o ACS. She had stress echocardiogram on 11/13/2020 which was negative for any evidence of ischemia. She remained stable and was discharged home on 11/13/2020, to follow up with her PCP in 1-2 weeks. Patient seen and examined prior to admission. She had no complaints and felt well. Review of systems was otherwise negative. Labs and vitals reviewed. Home meds reviewed and reconciled. Physical Exam Const alert and oriented x3 General Appearance: cooperative, comfortable, well kempt and well developed Orientation / Consciousness: awake HEENT normocephalic, head/scalp atraumatic, hearing grossly normal bilaterally and moist oral mucous membranes Eyes PERRL, EOMs intact bilaterally and conjunctivae normal Neck no lymphadenopathy Resp normal respiratory effort, no retractions, no use of accessory muscles and clear to auscultation bilaterally Cardio regular rate, regular rhythm, S1 normal heart sound, S2 normal heart sound and no murmurs GI normal to inspection, nondistended, normoactive bowel sounds, soft to palpation, non-tender and non-distended Extremity normal to inspection and full ROM Skin no rashes or lesions noted Neuro oriented x3 Sensorium / Orientation: awake and alert Psych affect normal ABG / Lab / Microbiology Data Result Diagrams: 11/13/20 04:25 11/13/20 04:25 Laboratory: Laboratory Results - last 24 hr 11/12/20 11/12/20 11/12/20 13:25 13:25 13:25 WBC 7.0 RBC 5.22 Hgb 14.8 Hct 45.8 MCV 87.7 MCH 28.4 MCHC 32.3 RDW Std Deviation 39.9 RDW Coeff of Tricia 12.4 Plt Count 312 MPV 9.3 Immature Gran % (Auto) 0.400 Neut % (Auto) 66.1 Lymph % (Auto) 24.2 Mckenzie % (Auto) 5.0 Eos % (Auto) 3.6 Baso % (Auto) 0.7 Absolute Neuts (auto) 4.6 Absolute Lymphs (auto) 1.69 Nucleated RBC % 0 D-Dimer Quant (PE/DVT) 0.36 Sodium 141 Potassium 3.9 Chloride 103 Carbon Dioxide 31.0 Anion Gap 7 BUN 17 Creatinine 1.02 Estim Creat Clear Calc 48.75 Est GFR (MDRD) Af Amer 69 Est GFR (MDRD) Non-Af 57 L BUN/Creatinine Ratio 16.7 Glucose 120 H Calcium 9.1 Magnesium Total Bilirubin AST ALT Alkaline Phosphatase Troponin I < 0.015 Total Protein Albumin Globulin Albumin/Globulin Ratio Triglycerides Cholesterol LDL Cholesterol VLDL Cholesterol HDL Cholesterol 11/12/20 11/12/20 11/12/20 13:25 16:42 19:10 WBC RBC Hgb Hct MCV MCH MCHC RDW Std Deviation RDW Coeff of Tricia Plt Count MPV Immature Gran % (Auto) Neut % (Auto) Lymph % (Auto) Mckenzie % (Auto) Eos % (Auto) Baso % (Auto) Absolute Neuts (auto) Absolute Lymphs (auto) Nucleated RBC % D-Dimer Quant (PE/DVT) Sodium Potassium Chloride Carbon Dioxide Anion Gap BUN Creatinine Estim Creat Clear Calc Est GFR (MDRD) Af Amer Est GFR (MDRD) Non-Af BUN/Creatinine Ratio Glucose Calcium Magnesium 2.2 Total Bilirubin AST ALT Alkaline Phosphatase Troponin I < 0.015 < 0.015 Total Protein Albumin Globulin Albumin/Globulin Ratio Triglycerides Cholesterol LDL Cholesterol VLDL Cholesterol HDL Cholesterol 11/13/20 11/13/20 04:25 04:25 WBC 7.6 RBC 5.04 Hgb 14.5 Hct 44.9 MCV 89.1 MCH 28.8 MCHC 32.3 RDW Std Deviation 40.6 RDW Coeff of Tricia 12.5 Plt Count 289 MPV 9.3 Immature Gran % (Auto) 0.500 Neut % (Auto) 62.7 Lymph % (Auto) 27.4 Mckenzie % (Auto) 5.1 Eos % (Auto) 3.8 Baso % (Auto) 0.5 Absolute Neuts (auto) 4.8 Absolute Lymphs (auto) 2.09 Nucleated RBC % 0 D-Dimer Quant (PE/DVT) Sodium 140 Potassium 4.2 Chloride 110 H Carbon Dioxide 24.0 Anion Gap 6 BUN 16 Creatinine 0.94 Estim Creat Clear Calc 51.54 Est GFR (MDRD) Af Amer 76 Est GFR (MDRD) Non-Af 63 BUN/Creatinine Ratio 17.1 Glucose 96 Calcium 8.0 L Magnesium Total Bilirubin 0.30 AST 20 ALT 29 Alkaline Phosphatase 95 Troponin I Total Protein 6.8 Albumin 3.4 Globulin 3.4 Albumin/Globulin Ratio 1.0 Triglycerides 169 Cholesterol 173 LDL Cholesterol 94 VLDL Cholesterol 34 HDL Cholesterol 45 Radiography Diagnostic Testing: Radiology Impression Chest X-Ray 11/12/20 13:25 IMPRESSION: Normal x-ray examination of the chest. Electronically Signed: Otf Aguilera MD at 14:18 EDT , Service support , Stress Echocardiogram 11/13/20 05:55 Interpretation Summary Contrast injection performed Negative (adequate) stress echocardiogram Ordering Physician: Denise Cota Referring Physician: Phillip Castro Performed By: Mandy Gomez RDCS D/C Instructions Discharge Diet: 2000 mg Sodium Diet Discharge Activity: Return to Normal Activity Weight Bearing Status: Weight bearing as tolerated Call your doctor if you observe: Shortness of breath, Dizziness, Swelling in the ankles and Chest pain Meaningful Use Info Meaningful Use Diagnoses (Choose all that apply): None applicable Discharge Plan Admission Admit Date/Time: 11/12/20 14:09 Primary Reason for Your Visit: chest pain Attending Provider: Nini Abraham Primary Care Provider: Marvin Smith Instructions Patient Instructions: ED Chest Pain, Noncardiac Discharge Orders/Prescriptions Prescriptions: Continued venlafaxine 75 mg tablet 75 mg PO TID RF: 0 bupropion HCl 100 mg tablet sustained-release 12 hr 200 mg PO BREAKFAST RF: 0 bupropion HCl 100 mg tablet sustained-release 12 hr 100 mg PO BID RF: 0 calcium carbonate [Calcium 600] 600 mg calcium (1,500 mg) Tablet 600 mg PO DAILY RF: 0 cyanocobalamin (vitamin B-12) [Vitamin B-12] 500 mcg Tablet 500 mcg PO DAILY RF: 0 Referrals / Follow Up: Marvin Smith MD [Primary Care Provider] - Within 2 Weeks Disposition Disposition (needs filled in before D/C Order can be placed): Home, self care
--- NOTE | 2020-11-13 13:32 | PHA.DC.MR ---
Pharmacy Service has performed discharge medication reconciliation for this patient. The patient's discharge medication list was reviewed for discrepancies and discrepancies were resolved. Home Medications bupropion HCl 100 mg PO BID 11/12/20 bupropion HCl 200 mg PO BREAKFAST 11/12/20 calcium carbonate [Calcium 600] 600 mg PO DAILY 11/12/20 cyanocobalamin (vitamin B-12) [Vitamin B-12] 500 mcg PO DAILY 11/12/20 venlafaxine 75 mg PO TID 11/12/20
== END 2020-11-13 12:58 | disposition home or self-care (01) ==
LOC: ED 13:57 → PCU 14:15
PROVIDERS: Admitting Provider Family Medicine; Emergency Provider Emergency Medicine; PCP Family Medicine; Visit Provider Student in an Organized Health Care Education/Training Program
DX: R07.89 Other chest pain (principal); F32.9 Major depressive disorder, single episode, unspecified; R53.83 Other fatigue; F41.9 Anxiety disorder, unspecified; Z79.899 Other long term (current) drug therapy; R03.0 Elevated blood-pressure reading, without diagnosis of hypertension; R73.9 Hyperglycemia, unspecified
CPT/HCPCS: 36415; 71045; 80048; 80053; 80061; 83735; 84484; 85025; 85379; 93005; 93017; 93350; 96360; 96361; 99218; 99251; 99285; J7030; Q9957; A4216; C8928; G0378; G0463; J3490

== ENCOUNTER → 2021-04-29 12:27 | Outpatient (CLI) | payer MEDICARE, OTHER, SELFPAY ==
--- NOTE | 2021-04-29 12:31 | BI_ITS ---
MAMMOGRAPHY - BILATERAL SCREENING REASON FOR EXAM: Female, 71 years old. Routine annual screening examination. PERTINENT HISTORY: Sister with breast cancer. Mother with breast cancer. TECHNIQUE: Digital bilateral breast michaelle (3D mammographic acquisition) in the CC and MLO projections. 2-D mediolateral oblique (MLO) and craniocaudad (CC) views of both breasts were obtained. CAD: Full Field Digital Mammography with Computer Added Detection was performed. COMPARISON: Comparison is made with prior examination 04/24/2020 and 04/18/2019. FINDINGS: Breast Composition: There are scattered areas of fibroglandular density. There are no dominant masses or suspicious calcifications. Stable small benign-appearing bilateral axillary lymph nodes. No other significant abnormalities are identified. There has been no significant change since the prior study. BI/SCRN MAMM (CAD)W/MICHAELLE BILAT IMPRESSION: Stable bilateral screening mammogram. Yearly follow-up mammogram recommended. (A) ASSESSMENT CATEGORY: BIRADS Category 2: Benign. A letter regarding these results will be sent to the patient by the facility within 30 days. Approximately 10% of breast cancers are not detected by mammography. A normal mammogram should not delay biopsy of a clinically suspicious abnormality. [id number] Electronically Signed: Otf Aguilera MD at 14:17 EST , Service support ,
--- NOTE | 2021-04-29 12:33 | BD_ITS ---
STUDY: DUAL ENERGY X-RAY ABSORPTIOMETRY / DXA REASON FOR EXAM: Female, 71 years old. 627.8Menopausal postmenopausalBONE DENSITY REASON FOR EXAM TECHNIQUE: Bone Mineral Density (BMD) measurements of lumbar spine and bilateral hips were obtained. COMPARISON: Comparison is made with prior study dated 04/18/2019. FINDINGS: Lumbar Spine (L1-L4): g/cm2 (0.914) / T-score (-1.2) / Z-score (0.9) Findings are suggestive of osteopenia with a low fracture risk. Left Femur Total: g/cm2 (0.866) / T-score (-0.6) / Z-score (0.8) Left Femoral Neck: g/cm2 (0.694) / T-score (-1.4) / Z-score (0.4) Right Femur Total: g/cm2 (0.948) / T-score (0.1) / Z-score (1.5) Right Femoral Neck: g/cm2 (0.755) / T-score (-0.8) / Z-score (0.9) The T-Scores on the most recent prior examination were: Lumbar Spine (L1-L4): There has been worsening of bone density since the previous examination. Left Femur Total: which represents a worsening of 1.3%. Right Femur Total: which represents an improvement of 6.7%. BD/Dexa Bone Density Study IMPRESSION: The patient is considered osteopenic as outlined below according to World [place] Organization (WHO) criteria with a low fracture risk. There has been worsening of bone density since the previous examination. Reference Information: The T-score is the number of standard deviations above or below the standard which is normal for young adults at their peak bone mineral density. The World Health Organization (WHO) interprets the T-scores as follows: Above -1 Normal bone density Between -1 and -2.5 Osteopenia Equal to / or below -2.5 Osteoporosis As a practical clinical guideline, osteopenia may be graded as follows: Mild -1 through -1.5 Moderate -1.6 through -2.0 Severe -2.1 through -2.4 The Z-score is the number of standard deviations above or below age-matched controls. A Z-score of less than -1.5 would be considered abnormal. References: 1. NIH Osteoporosis and Related Bone Diseases www osteo.org 2. International Society for Clinical Densitometry www iscd.org 3. National Osteoporosis Foundation www nof.org Electronically Signed: Otf Aguilera MD at 15:10 EST , Service support ,
== END ==
PROVIDERS: PCP Family Medicine; Referring Provider Family Medicine; Visit Provider Family Medicine
DX: M85.80 Other specified disorders of bone density and structure, unspecified site (principal); N95.9 Unspecified menopausal and perimenopausal disorder; Z12.31 Encounter for screening mammogram for malignant neoplasm of breast
CPT/HCPCS: 77063; 77067; 77080

== ENCOUNTER 2021-08-19 17:11 | Outpatient (CLI) | payer MEDICARE, OTHER, SELFPAY ==
--- NOTE | 2021-08-19 17:14 | RAD_ITS ---
EXAM: XR LEFT FOOT COMPLETE, 3 OR MORE VIEWS : 1950 CLINICAL INDICATION: PAIN -- HEEL TECHNIQUE: Frontal, lateral and oblique views of the left foot. This report was created using [employer] report generation technology. COMPARISON: None. FINDINGS: BONES/JOINTS: Narrowing and bony spurring of the tarsal joints. Dorsal and plantar calcaneal spurring noted. No acute fracture. No subluxation. Normal alignment. No sclerotic or destructive changes observed. SOFT TISSUES: Unremarkable. No soft tissue swelling or gas. No radiopaque foreign body. RAD/Foot min 3 Views IMPRESSION: No acute abnormality. Calcaneal spurring. DJD. at 1548 Reported and signed by: Wayne Cortes MD Electronically Signed: Wayne Cortes MD at 15:47 EST ,
== END 2021-08-19 23:59 | disposition home or self-care (01) ==
LOC: MTRAD 17:13
PROVIDERS: PCP Family Medicine; Referring Provider Family Medicine; Visit Provider Family Medicine
DX: M79.672 Pain in left foot (principal)
CPT/HCPCS: 73630

== ENCOUNTER 2021-09-20 16:44 | Outpatient (CLI) | payer MEDICARE, OTHER, SELFPAY ==
[2021-09-20 18:14] LABS: ALB/GLOB Ratio 1.2 RATIO (0.9-2.4); AST(SGOT) 11 U/L (15-37); Alanine Aminotransfer ALT/SGPT 24 U/L (13-56); Albumin, Serum 3.8 g/dL (3.2-5.0); Alkaline Phosphatase 76 U/L (45-117); Anion Gap 6 (5-15); BUN 22 mg/dL (7-18); BUN/Creat Ratio 23.3 RATIO (10-20); Calcium,Total 8.4 mg/dL (8.5-10.1); Chloride 105 mmol/L (98-107); Creatinine, Serum 0.94 mg/dL (0.55-1.02); EST Glomerular Filtration Rate 62 mL/min (>60); Est Glom Filt Rate - Afr Amer 75 mL/min (>60); Globulin 3.3 g/dL (2.2-4.2); Glucose 97 mg/dL (74-106); Protein, Total 7.1 g/dL (6.4-8.2); Sodium Level 137 mmol/L (136-145)
[2021-09-20 18:21] LABS: Hemoglobin A1c 5.5 % (3.8-5.6)
[2021-09-20 18:29] LABS: Vitamin D,25 Hydroxy 36.5 ng/mL
== END 2021-09-20 23:59 | disposition home or self-care (01) ==
LOC: MFPLAB 16:48
PROVIDERS: PCP Family Medicine; Referring Provider Family Medicine; Visit Provider Family Medicine
DX: R73.02 Impaired glucose tolerance (oral) (principal); M85.80 Other specified disorders of bone density and structure, unspecified site
CPT/HCPCS: 36415; 80053; 82306; 83036

== ENCOUNTER → 2021-10-07 | Outpatient (CLI) | payer MEDICARE, OTHER, SELFPAY ==
[2021-10-07 12:13] LABS: Absolute Lymphocyte Count 1.48 X10^3/uL (0.83-4.51); Absolute Neutrophil Count 6.6 X10^3/uL (2.0-7.7); Basophil# 0.05 X10^3/uL; Basophil% 0.6 % (0-1); Eosinophil# 0.27 X10^3/uL; Hematocrit 44.6 % (37-47); Hemoglobin 14.7 g/dL (12.0-15.0); Lymphocyte # 1.48 X10^3/ul (0.83-4.51); Lymphocyte % 16.6 % (19-41); Mean Corpuscular Hgb 29.1 pg (27.0-32.0); Mean Corpuscular Volume 88.3 fL (81-99); Mean Platelet Vol. 10.2 fl (6.2-12.0); Monocyte# 0.47 X10^3/uL; Monocyte% 5.3 % (0-10); NRBC Flagged by Analyzer 0 % (0-5); Neutrophil # 6.61 X10^3/uL (2.7-7.7); Neutrophil % 74.2 % (47-70); Platelet Count 340 K/mm3 (150-450); RBC Distribution Width CV 12.5 % (11.6-14.6); RBC Distribution Width SD 40.5 fl (35.1-43.9); Red Blood Count 5.05 M/mm3 (4.2-5.4); White Blood Count 8.9 K/mm3 (4.4-11.0)
[2021-10-07 12:51] LABS: Anion Gap 7 (5-15); BUN 18 mg/dL (7-18); BUN/Creat Ratio 21.9 RATIO (10-20); Chloride 108 mmol/L (98-107); Creatinine, Serum 0.82 mg/dL (0.55-1.02); EST Glomerular Filtration Rate 73 mL/min (>60); Est Glom Filt Rate - Afr Amer 89 mL/min (>60); Glucose 99 mg/dL (74-106); Potassium 4.1 mmol/L (3.5-5.1); Sodium Level 140 mmol/L (136-145)
== END | disposition home or self-care (01) ==
LOC: MFPLAB 09:32
PROVIDERS: PCP Family Medicine; Referring Provider Family Medicine; Visit Provider Nurse Practitioner Family
DX: Z01.818 Encounter for other preprocedural examination (principal)
CPT/HCPCS: 36415; 80048; 85025

== ENCOUNTER → 2021-11-02 | Outpatient (CLI) | payer MEDICARE, OTHER, SELFPAY ==
--- NOTE | 2021-11-02 15:23 | RAD_ITS ---
STUDY: XR Chest 2 Views 11/02/2021 3:27 PM REASON FOR EXAM: Female, 71 years old. CHEST PAIN PRE-OP COMPARISON: None TECHNIQUE: XR Chest 2 Views FINDINGS: There is no demonstrated pleural abnormality. Normal heart size. Normal mediastinum. Normal katie. Prominent appearing increased interstitial lung markings. Normal visualized pulmonary arteries. There is atherosclerotic calcification of the aortic arch with tortuosity. There are diffuse degenerative changes of the visualized thoracic spine. There is degenerative osteoarthritis of the bilateral shoulders. There is no demonstrated abnormality of the visualized soft tissue structures of the upper abdomen. RAD/Chest PA and Lateral IMPRESSION: There are no acute findings. Electronically Signed: Jonas Ornelas MD at 15:42 EDT ,
[2021-11-02 17:53] LABS: Absolute Neutrophil Count 5.3 X10^3/uL (2.0-7.7); Basophil# 0.05 X10^3/uL; Basophil% 0.6 % (0-1); Eosinophils% 3.6 % (0-5); Hematocrit 45.1 % (37-47); Hemoglobin 14.5 g/dL (12.0-15.0); Lymphocyte % 25.4 % (19-41); Mean Corp Hgb Conc 32.2 g/dL (32-36); Mean Corpuscular Hgb 29.2 pg (27.0-32.0); Mean Corpuscular Volume 90.7 fL (81-99); Mean Platelet Vol. 10.4 fl (6.2-12.0); Monocyte# 0.47 X10^3/uL; Monocyte% 5.7 % (0-10); NRBC Flagged by Analyzer 0 % (0-5); Neutrophil # 5.31 X10^3/uL (2.7-7.7); Neutrophil % 64.3 % (47-70); Platelet Count 356 K/mm3 (150-450); RBC Distribution Width CV 12.3 % (11.6-14.6); RBC Distribution Width SD 40.6 fl (35.1-43.9); Red Blood Count 4.97 M/mm3 (4.2-5.4); White Blood Count 8.3 K/mm3 (4.4-11.0)
[2021-11-02 18:11] LABS: ALB/GLOB Ratio 1.2 RATIO (0.9-2.4); AST(SGOT) 15 U/L (15-37); Alanine Aminotransfer ALT/SGPT 30 U/L (13-56); Albumin, Serum 3.8 g/dL (3.2-5.0); Alkaline Phosphatase 88 U/L (45-117); Anion Gap 6 (5-15); BUN 19 mg/dL (7-18); BUN/Creat Ratio 18.4 RATIO (10-20); Calcium,Total 8.9 mg/dL (8.5-10.1); Chloride 107 mmol/L (98-107); Creatinine, Serum 1.03 mg/dL (0.55-1.02); EST Glomerular Filtration Rate 56 mL/min (>60); Est Glom Filt Rate - Afr Amer 68 mL/min (>60); Globulin 3.2 g/dL (2.2-4.2); Glucose 109 mg/dL (74-106); Sodium Level 140 mmol/L (136-145)
== END | disposition home or self-care (01) ==
PROVIDERS: PCP Family Medicine; Referring Provider Family Medicine; Visit Provider Family Medicine
DX: Z01.818 Encounter for other preprocedural examination (principal)
CPT/HCPCS: 36415; 71046; 80053; 85025

== ENCOUNTER 2022-02-02 11:30 | Outpatient (RCR) | payer MEDICARE, OTHER, SELFPAY ==
--- NOTE | 2022-01-25 08:07 | HP.PTEVAL_ITS ---
Patient's Visit Information BELLA MONROY is a 72 year old F referred to Physical Therapy by Dr. Andrew Peterson DPM with a diagnosis of Debridement of Achilles tendon, Calcaneal spur removal, Tendon lengthening. Date of Evaluation: 01/20/22 Physical Therapist: Ifeanyi Contreras DPT - Visit Plan Frequency: 3x /Week Duration: 3 Weeks Plan: Start with calf stretching, banded ankle strengthening. Promote walking program. Progress balance activities. Progress to CKC exercises as tolerated. Keep in mind her 5th toe fracture with all exercises. She is going on vacation in 2 weeks as well. - Subjective Pt. is here today for her initial evaluation with diagnosis Calcified tenonitis, Achilles Tendonitis with subsequent Debridement of Achilles tendon, Calcaneal spur removal, Tendon lengthening of Achilles L ankle. DOS: 11/25/21. Pt. arrives today wearing L surgical shoe as she broke her 5th toe when she hit it on the corner of a table/desk. She reports overall doing much better, but her 5th toe is still bothering her. She is in the surgical shoe to off load her toe. She reports being pleased with her ankle thus far. She denies N/T, she does have some tightness in her ankle, but is overall walking well. She is going on a cruise/trip to [place] in 2 weeks. She is hopeful to increase her ROM allowing her to walk with better tolerance and with minimal pain. - Pain L ankle Pain Intensity (Out of 10): 1 Pain Intensity Range: 0, 3 L 5th toe Pain Intensity (Out of 10): 3 Pain Intensity Range: 0, 5 - Objective POSTURE: Pt. has good posture in stance. Slight R wt. shift in stance. Normal DEDE. PALPATION: Pt. has marked incision along achilles tendon. No signs of inf ection. Some mild superficial scar thickening, but minimal. She also has some bruising at 5th toe at base. NEURO: Normal sensation throughout BLEs. Normal patellar and achilles DTR bilaterally. ROM: R ankle: DF 20deg, PF 48deg, INV 20deg, EVR 20deg. L ankle: DF 10deg, PF 41deg, INV 16deg, EVR 10deg. No pain with over pressure, Mostly tight into DF on L side. MMT: RLE: ankle: 5/5 throughout; knee: 5/5 throughout; hip 5-/5 throughout. LLE:: ankle: DF 4/5, PF 4/5, INV 4/5, EVR 4/5. knee: ext 4+/5, flexion 4+/5; hip: flexion 5-/5, abd 4+/5, ext 4+/5. GAIT: Pt. has decent gait pattern with use of surgical shoe on the L foot for her 5th toe. She has no major antalgic movements, slight decreased rocker moment on L side, but I do think this is due to being more fearful of WBing on her 5th toe rather than ankle stiffness. STAIRS: Ascending no issues with 1 HR. Descending early heel off on L side during stance phase, use of 1 HR. - Balance/Special Test Scores Lower Extremity Functional Score: 54 - Goals Goal 1:: LTG: Pt. to be I with HEP for ankle strengthening and balance training. Goal Time Frame: 4-6 Weeks Goal 2:: STG: Pt. to have increased L ankle DF to at least 15deg allowing for better gait mechanics and better stair negotiation. Goal Time Frame: 2-4 Weeks Goal 3:: LTG: Pt. to have increased L ankle strength to 5/5 throughout without increase in symptoms. Goal Time Frame: 4-6 Weeks Goal 4:: LTG: Pt. to have normal gait pattern without increase in symptoms. Goal Time Frame: 4-6 Weeks Goal 5:: LTG: Pt. to complete 6 MWT with distance of at least 750 feet indicating age appropriate walking speed. Goal Time Frame: 4-6 Weeks Goal 6:: LTG: Pt. be able to maintain SLS for at least 30sec without external assistance on LLE. Goal Time Frame: 4-6 Weeks - Rehabilitation Potential Physical Therapy Diagnosis: Pt. has signs and symptoms consistent with Calcified tendonitis, Achilles Tendonitis with subsequent Debridement of Achilles tendon, Calcaneal spur removal, Tendon lengthening of Achilles L ankle. DOS: 11/25/21. Pt. is overall doing well. She has some stiffness into DF, slight issue with walking, marked weakness in her L ankle and hip. She would benefit from PT to address the above limitation progressing back to all functional activities without limitations. Rehabilitation Potential: Excellent - Anticipated Interventions Patient/Client Instruction: Educate patient on: Condition, Plan of Care, Risk Factors, Benefits of Fitness Program For the Purpose of:: To improve decision making, To facilitate caregiver knowledge, To improve self management, To prevent re-injury, To improve ability to perform tasks related to life management, To improve tolerance to ADL's Therapeutic Exercise to Include: Strength training, Power training, Balance training, Body mechanics, Postural training, Flexibilty training, Gait and locomotor training, Passive ROM, Active ROM For the Purpose of:: To decrease pain, To decrease swelling/inflammation, To increase ROM, To improve nutrient delivery to tissue, To increase oxygenation perfusion, To improve muscle performance and motor function, To improve gait and locomotor functions, To improve health of tissue, To decrease soft tissue restriction, To increase flexibility/ROM, To improve endurance, To improve balance, To improve safety with gait Thank you for the opportunity to evaluate your patient. For Medicare and Medicare HMO plans, please review the plan of care and approve it. It will need to be FAXED BACK to us at [phone] for Medicare purposes. For Medicare only, by signing this I certify the plan of care. Please let me know if there are questions or concerns regarding this plan of care. Physician Signature: Date:
--- NOTE | 2022-02-02 19:06 | HP.PTREVAL ---
Dr. Andrew Peterson, DPM, It has been my pleasure to treat BELLA MONROY over the last 6 visits for Debridement of Achilles tendon, Calcaneal spur removal, Tendon lengthening. Please see the progress note below for an update on the physical therapy plan of care! Subjective: PT. reports no pain coming into PT this date. She reports having no issues with walking and being HEP compliant. She is going on her cruise this coming week. Objective/Function: Pt. is overall doing much better. She has no pain with walking, good strength throughout her ankle. She has some mild increase in sensitivity near her incision, I did give her a surgical brush to use in desensitization. Pt. has good ROM, but does have some mild tenderness at ankle with descending steps, mild early heel off. I am very pleased with her progress thus far. She is increasing her walking distances as well. Plan Plan: pt. to follow up with physician later this week. She is to on her cruise. I did not schedule further appts at this point in time. She is to trial her cruise and if having issues then follow up with PT. If I do not hear from her over the next few weeks I will DC back to physician. Balance/Gait/Functional tests - Balance/Special Test Scores Lower Extremity Functional Score: 54 Goals Goal 1:: LTG: Pt. to be I with HEP for ankle strengthening and balance training. Goal Time Frame: 4-6 Weeks Goal 2:: STG: Pt. to have increased L ankle DF to at least 15deg allowing for better gait mechanics and better stair negotiation. Goal Time Frame: 2-4 Weeks Goal 3:: LTG: Pt. to have increased L ankle strength to 5/5 throughout without increase in symptoms. Goal Time Frame: 4-6 Weeks Goal 4:: LTG: Pt. to have normal gait pattern without increase in symptoms. Goal Time Frame: 4-6 Weeks Goal 5:: LTG: Pt. to complete 6 MWT with distance of at least 750 feet indicating age appropriate walking speed. Goal Time Frame: 4-6 Weeks Goal 6:: LTG: Pt. be able to maintain SLS for at least 30sec without external assistance on LLE. Goal Time Frame: 4-6 Weeks Anticipated Interventions Patient/Client Instruction: Educate patient on: Condition, Plan of Care, Risk Factors, Benefits of Fitness Program For the Purpose of:: To improve decision making, To facilitate caregiver knowledge, To improve self management, To prevent re-injury, To improve ability to perform tasks related to life management, To improve tolerance to ADL's Therapeutic Exercise to Include: Strength training, Power training, Balance training, Body mechanics, Postural training, Flexibilty training, Gait and locomotor training, Passive ROM, Active ROM For the Purpose of:: To decrease pain, To decrease swelling/inflammation, To increase ROM, To improve nutrient delivery to tissue, To increase oxygenation perfusion, To improve muscle performance and motor function, To improve gait and locomotor functions, To improve health of tissue, To decrease soft tissue restriction, To increase flexibility/ROM, To improve endurance, To improve balance, To improve safety with gait Please do not hesitate to contact me at [phone] by phone or if you have questions or concerns regarding this new plan of care! Sincerely, Ifeanyi Contreras DPT
== END 2022-02-02 19:00 | disposition home or self-care (01) ==
LOC: PT 11:30
PROVIDERS: PCP Family Medicine; Referring Provider Student in an Organized Health Care Education/Training Program; Visit Provider Student in an Organized Health Care Education/Training Program
DX: M65.262 Calcific tendinitis, left lower leg (principal); M76.62 Achilles tendinitis, left leg
CPT/HCPCS: 97110; 97140; 97161

== ENCOUNTER → 2022-05-04 | Outpatient (CLI) | payer MEDICARE, OTHER, SELFPAY ==
--- NOTE | 2022-05-04 08:34 | BI_ITS ---
MAMMOGRAPHY - BILATERAL SCREENING REASON FOR EXAM: Female, 72 years old. Routine annual screening examination. PERTINENT HISTORY: Sister with breast cancer. Mother with breast cancer. TECHNIQUE: Digital bilateral breast michaelle (3D mammographic acquisition) in the CC and MLO projections. 2-D mediolateral oblique (MLO) and craniocaudad (CC) views of both breasts were obtained. CAD: Full Field Digital Mammography with Computer Added Detection was performed. COMPARISON: 04/29/2021, 04/24/2020. FINDINGS: Breast Composition: There are scattered areas of fibroglandular density. There are no dominant masses or suspicious calcifications. Stable scattered bilateral benign-appearing calcifications. Stable small benign-appearing bilateral axillary lymph nodes. No other significant abnormalities are identified. There has been no significant change since the prior study. BI/SCRN MAMM (CAD)W/MICHAELLE BILAT IMPRESSION: Stable bilateral screening mammogram. Yearly follow-up mammogram recommended. (A) ASSESSMENT CATEGORY: BIRADS Category 2: Benign. A letter regarding these results will be sent to the patient by the facility within 30 days. Approximately 10% of breast cancers are not detected by mammography. A normal mammogram should not delay biopsy of a clinically suspicious abnormality. Electronically Signed: Bruno Hurst, at 14:27 EST ,
== END | disposition home or self-care (01) ==
LOC: OPBI 08:33
PROVIDERS: PCP Family Medicine; Visit Provider Nurse Practitioner Family
DX: Z12.31 Encounter for screening mammogram for malignant neoplasm of breast (principal); Z80.3 Family history of malignant neoplasm of breast
CPT/HCPCS: 77063; 77067

== ENCOUNTER → 2022-05-24 | Outpatient (CLI) | payer MEDICARE, OTHER, SELFPAY ==
--- NOTE | 2022-05-24 16:40 | RAD_ITS ---
INDICATION: PAIN IN LOYA EXAMINATION/TECHNIQUE: X-RAY - LEFT XR Tibia/Fibula 2 Views 2 VIEWS COMPARISON: None. FINDINGS: 2 views of the left tibia and fibula were obtained. No acute fracture is identified. No osseous erosion. No radiopaque foreign body. [id number] degenerative changes of the knee. RAD/Tibia & Fibula 2 Views IMPRESSION: No acute abnormality. Electronically Signed: Janes Palomares MD at 3:02 EST ,
== END | disposition home or self-care (01) ==
LOC: MTRAD 16:38
PROVIDERS: PCP Family Medicine; Referring Provider Family Medicine; Visit Provider Family Medicine
DX: M79.662 Pain in left lower leg (principal)
CPT/HCPCS: 73590

== ENCOUNTER → 2022-10-19 | Outpatient (CLI) | payer MEDICARE, OTHER, SELFPAY ==
[2022-10-19 17:46] LABS: Absolute Lymphocyte Count 1.89 X10^3/uL (0.83-4.51); Absolute Neutrophil Count 5.8 X10^3/uL (2.0-7.7); Basophil# 0.06 X10^3/uL; Basophil% 0.7 % (0-1); Eosinophil# 0.31 X10^3/uL; Eosinophils% 3.7 % (0-5); Hematocrit 42.8 % (37-47); Hemoglobin 13.9 g/dL (12.0-15.0); Lymphocyte # 1.89 X10^3/ul (0.83-4.51); Lymphocyte % 22.4 % (19-41); Mean Corp Hgb Conc 32.5 g/dL (32-36); Mean Corpuscular Hgb 29.3 pg (27.0-32.0); Mean Corpuscular Volume 90.3 fL (81-99); Mean Platelet Vol. 10.2 fl (6.2-12.0); Monocyte# 0.39 X10^3/uL; Monocyte% 4.6 % (0-10); NRBC Flagged by Analyzer 0 % (0-5); Neutrophil # 5.75 X10^3/uL (2.7-7.7); Neutrophil % 68.4 % (47-70); Platelet Count 319 K/mm3 (150-450); RBC Distribution Width CV 12.5 % (11.6-14.6); Red Blood Count 4.74 M/mm3 (4.2-5.4); White Blood Count 8.4 K/mm3 (4.4-11.0)
[2022-10-19 18:24] LABS: ALB/GLOB Ratio 1.3 RATIO (0.9-2.4); AST(SGOT) 16 U/L (15-37); Alanine Aminotransfer ALT/SGPT 31 U/L (13-56); Albumin, Serum 3.8 g/dL (3.2-5.0); Alkaline Phosphatase 78 U/L (45-117); Anion Gap 5 (5-15); BUN 20 mg/dL (7-18); BUN/Creat Ratio 18.9 RATIO (10-20); Chloride 107 mmol/L (98-107); Creatinine, Serum 1.06 mg/dL (0.55-1.02); EST Glomerular Filtration Rate 54 mL/min (>60); Est Glom Filt Rate - Afr Amer 66 mL/min (>60); Glucose 87 mg/dL (74-106); Hemoglobin A1c 5.4 % (3.8-5.6); Potassium 3.8 mmol/L (3.5-5.1); Protein, Total 6.8 g/dL (6.4-8.2); Sodium Level 140 mmol/L (136-145)
[2022-10-19 20:32] LABS: Vitamin D,25 Hydroxy 72.5 ng/mL
== END | disposition home or self-care (01) ==
LOC: MFPLAB 15:54
PROVIDERS: PCP Family Medicine; Visit Provider Family Medicine
DX: G47.33 Obstructive sleep apnea (adult) (pediatric) (principal); E55.9 Vitamin D deficiency, unspecified; R73.02 Impaired glucose tolerance (oral)
CPT/HCPCS: 36415; 80053; 82306; 83036; 85025

== ENCOUNTER → 2022-10-28 | Outpatient (CLI) | payer MEDICARE, OTHER, SELFPAY ==
[2022-10-28 15:30] LABS: Anion Gap 7 (5-15); BUN 21 mg/dL (7-18); BUN/Creat Ratio 24.9 RATIO (10-20); Calcium,Total 8.8 mg/dL (8.5-10.1); Chloride 109 mmol/L (98-107); Creatinine, Serum 0.84 mg/dL (0.55-1.02); EST Glomerular Filtration Rate 71 mL/min (>60); Est Glom Filt Rate - Afr Amer 85 mL/min (>60); Glucose 88 mg/dL (74-106); Sodium Level 141 mmol/L (136-145)
== END | disposition home or self-care (01) ==
LOC: MFPLAB 11:01
PROVIDERS: PCP Family Medicine; Visit Provider Family Medicine
DX: N28.9 Disorder of kidney and ureter, unspecified (principal)
CPT/HCPCS: 36415; 80048

== ENCOUNTER → 2023-06-02 | Outpatient (CLI) | payer MEDICARE, OTHER, SELFPAY ==
--- NOTE | 2023-06-02 08:32 | BI_ITS ---
MAMMOGRAPHY - BILATERAL SCREENING 3-D TOMOSYNTHESIS REASON FOR EXAM: Female, 73 years old. Routine screening PERTINENT HISTORY: Mother and sister with breast cancer.. TECHNIQUE: 2-D mammograms and 3-D Tomosynthesis of the breast (s) were performed. CAD was performed. COMPARISON: 04/29/2021, 05/04/2020 FINDINGS: The breast composition is composed of scattered fibroglandular density. Scattered benign calcifications are seen. No dense spiculated masses or suspicious microcalcifications are identified. No architectural distortion is identified. There is no skin thickening or retraction. Stable punctate calcifications There has been no significant change since the prior study. BI/SCRN MAMM (CAD)W/MICHAELLE BILAT IMPRESSION: No mammographic signs of malignancy. Routine yearly mammograms recommended. ASSESSMENT CATEGORY: BIRADS Category 1: Negative. A letter regarding these results will be sent to the patient by the facility within 30 days. FOLLOW UP RECOMMENDATION: Yearly follow up mammogram recommended. (A) Approximately 10% of breast cancers are not detected by mammography. A normal mammogram should not delay biopsy of a clinically suspicious abnormality. Electronically Signed: Spencer Kimble MD at 11:59 EST ,
== END | disposition home or self-care (01) ==
LOC: OPBI 08:30
PROVIDERS: PCP Family Medicine; Referring Provider Family Medicine; Visit Provider Family Medicine
DX: Z12.31 Encounter for screening mammogram for malignant neoplasm of breast (principal)
CPT/HCPCS: 77063; 77067

== ENCOUNTER → 2023-08-16 | Outpatient (CLI) | payer MEDICARE, OTHER, SELFPAY ==
--- NOTE | 2023-08-16 10:27 | RAD_ITS ---
INDICATION: COUGH EXAMINATION/TECHNIQUE: X-RAY - XR Chest 2 Views COMPARISON: Prior study dated: 11/02/2021 FINDINGS: LINES/DEVICES: None. LUNGS: No consolidation, edema or effusion. No pneumothorax. MEDIASTINUM AND CARDIOVASCULAR STRUCTURES: Cardiac silhouette not enlarged. Central airways and mediastinal contour are unremarkable. BONES AND SOFT TISSUES: Mild dextroscoliosis of the thoracic spine. RAD/Chest PA and Lateral IMPRESSION: No radiographic evidence of acute cardiopulmonary disease. Electronically Signed: Fransisco Samson MD at 13:14 EST ,
== END | disposition home or self-care (01) ==
PROVIDERS: PCP Family Medicine; Referring Provider Internal Medicine Pulmonary Disease; Visit Provider Internal Medicine Pulmonary Disease
DX: R05.9 Cough, unspecified (principal)
CPT/HCPCS: 71046

== ENCOUNTER → 2023-11-22 | Outpatient (CLI) | payer MEDICARE, OTHER, SELFPAY ==
[2023-11-22 10:43] LABS: Absolute Lymphocyte Count 1.46 X10^3/uL (0.83-4.51); Absolute Neutrophil Count 4.6 X10^3/uL (2.0-7.7); Basophil# 0.06 X10^3/uL; Basophil% 0.9 % (0-1); Eosinophil# 0.28 X10^3/uL; Eosinophils% 4.1 % (0-5); Hematocrit 44.1 % (37-47); Hemoglobin 14.3 g/dL (12.0-15.0); Lymphocyte # 1.46 X10^3/ul (0.83-4.51); Lymphocyte % 21.5 % (19-41); Mean Corp Hgb Conc 32.4 g/dL (32-36); Mean Corpuscular Hgb 28.7 pg (27.0-32.0); Mean Corpuscular Volume 88.4 fL (81-99); Mean Platelet Vol. 9.9 fl (6.2-12.0); Monocyte# 0.35 X10^3/uL; Monocyte% 5.2 % (0-10); NRBC Flagged by Analyzer 0 % (0-5); Neutrophil # 4.61 X10^3/uL (2.7-7.7); Platelet Count 309 K/mm3 (150-450); RBC Distribution Width CV 12.5 % (11.6-14.6); RBC Distribution Width SD 40.8 fl (35.1-43.9); Red Blood Count 4.99 M/mm3 (4.2-5.4); White Blood Count 6.8 K/mm3 (4.4-11.0)
[2023-11-22 11:13] LABS: Vitamin D,25 Hydroxy 39.9 ng/mL
[2023-11-22 11:19] LABS: Hemoglobin A1c 5.4 % (3.8-5.6)
[2023-11-22 11:46] LABS: ALB/GLOB Ratio 1.2 RATIO (0.9-2.4); AST(SGOT) 14 U/L (15-37); Alanine Aminotransfer ALT/SGPT 27 U/L (13-56); Albumin, Serum 3.8 g/dL (3.2-5.0); Alkaline Phosphatase 79 U/L (45-117); Anion Gap 7 (5-15); BUN 19 mg/dL (7-18); BUN/Creat Ratio 20.1 RATIO (10-20); Calcium,Total 8.9 mg/dL (8.5-10.1); Chloride 107 mmol/L (98-107); Cholesterol 188 mg/dL (200); Creatinine, Serum 0.95 mg/dL (0.55-1.02); EST Glomerular Filtration Rate 62 mL/min (>60); Est Glom Filt Rate - Afr Amer 75 mL/min (>60); Globulin 3.2 g/dL (2.2-4.2); Glucose 88 mg/dL (74-106); High Density Lipoprotein 60 mg/dL; Potassium 3.5 mmol/L (3.5-5.1); Sodium Level 139 mmol/L (136-145); Triglycerides 96 mg/dL; Very Low Density Lipoprotein 19 mg/dL (5-40)
== END | disposition home or self-care (01) ==
LOC: MFPLAB 09:19
PROVIDERS: PCP Family Medicine; Visit Provider Family Medicine
DX: R73.02 Impaired glucose tolerance (oral) (principal); E55.9 Vitamin D deficiency, unspecified
CPT/HCPCS: 36415; 80053; 80061; 82306; 83036; 85025

== ENCOUNTER → 2024-07-11 | Outpatient (CLI) | payer MEDICARE, OTHER, SELFPAY ==
--- NOTE | 2024-07-11 09:24 | BD_ITS ---
PROCEDURE: DEXA BONE DENSITY STUDY REASON FOR EXAM: F, age 74 y/o . Patient is postmenopausal.. Patient is postmenopausal. TECHNIQUE: DEXA scan of the lumbar spine and both hips. COMPARISON: Comparison is made with prior study dated April 29, 2021. FINDINGS: Lumbar Spine (L1-L4): g/cm2 (0.847)/T-score (-1.6)/Z-score (0.6) findings are suggestive of osteopenia with a low fracture risk. Left Femur Total: g/cm2 (0.913)/T-score (-0.2)/Z-score (1.4) Left Femoral Neck: g/cm2 (0.641)/T-score (-1.9)/Z-score (0.1) Right Femur Total: g/cm2 (0.941)/T-score (0.0)/Z-score (1.6) Right Femoral Neck: g/cm2 (0.686)/T-score (-1.5)/Z-score (0.5) The T-Scores on the most recent prior examination were: Lumbar Spine (L1-L4): There has been decrease of bone density since the previous examination. BD/Dexa Bone Density Study IMPRESSION: OSTEOPENIA. Reading Location: [place] [id number]
--- NOTE | 2024-07-11 09:24 | BI_ITS ---
PROCEDURE: SCRN MAMM (CAD)W/MICHAELLE BILAT REASON FOR EXAM: F, Age 74 y/o, annual follow-up. Sister with breast cancer mother with breast cancer. TECHNIQUE: Bilateral screening digital breast tomosynthesis with 2D and 3D images. Computer aided detection. COMPARISON: Prior exam(s) dating back to June 02, 2023.. FINDINGS: There are scattered areas of fibroglandular density. Stable examination. No suspicious masses, areas of developing architectural distortion, or suspicious calcifications. BI/SCRN MAMM (CAD)W/MICHAELLE BILAT IMPRESSION: BI-RADS 1: NEGATIVE. RECOMMEND ANNUAL MAMMOGRAPHIC SCREENING. Follow-up code: Routine Follow-up The patient will be notified of the results by letter. Reading Location: [place] [id number]
== END | disposition home or self-care (01) ==
PROVIDERS: PCP Family Medicine; Referring Provider Family Medicine; Visit Provider Family Medicine
DX: Z12.31 Encounter for screening mammogram for malignant neoplasm of breast (principal); Z78.0 Asymptomatic menopausal state; M85.80 Other specified disorders of bone density and structure, unspecified site
CPT/HCPCS: 77063; 77067; 77080

== ENCOUNTER 2024-10-06 15:23 | Emergency (ER) | payer MEDICARE, OTHER, SELFPAY ==
[2024-10-06 15:25] VITALS: BP 160/90; PULSE 79; RESP 18; TEMP 36.9; O2SAT 96
[2024-10-06 15:28] VITALS: BP 160/90; PULSE 79; RESP 18; TEMP 36.9; O2SAT 96; BMI 29.7
[2024-10-06] MEDS: 0.9% Normal Saline (1000mL) 1,000 ML 999 ML IV (15:44)
--- NOTE | 2024-10-06 15:45 | EX.ED.DYSGE1 ---
HPI <LO Escoto - Last Filed: 10/06/24 18:18> History of Present Illness Chief Complaint: Nausea/Vomiting Narrative Narrative: Patient is a 74-year-old female with history of anxiety, depression who presents to the emergency department for epigastric pain, nausea and vomiting. Patient states that 2 nights ago, she [facility]. Pay states she developed some nausea and vomiting. Patient states that she is having difficulty keeping even water down. She is feeling weak and is here for evaluation [facility] <LO Escoto - Last Filed: 10/06/24 18:18> [facility] Medical History (Updated 10/06/24 @ 20:[address] Eddy Cleaning MD) Anxiety and depression Home Medications ?Medication ?Instructions ?Recorded ?Last Taken ?Type bupropion HCl 100 mg tablet,12 hr 100 mg PO BID 11/12/20 11/11/20 History sustained-release bupropion HCl 100 mg tablet,12 hr 200 mg PO BREAKFAST 11/12/20 11/12/20 History sustained-release calcium carbonate (Calcium 600) 600 mg PO DAILY supplement 11/12/20 11/12/20 History cyanocobalamin (vitamin B-12) 500 500 mcg PO DAILY supplement 11/12/20 11/12/20 History mcg tablet (Vitamin B-12) venlafaxine 75 mg tablet 75 mg PO TID 11/12/20 11/12/20 History famotidine 20 mg tablet (Pepcid) 20 mg PO DAILY #20 tabs 10/06/24 Unknown Rx ondansetron 4 mg disintegrating 4 mg PO Q8H PRN PRN Nausea #10 tabs 10/06/24 Unknown Rx tablet Allergy/AdvReac Type Severity Reaction Status Date / Time No Known Allergies Allergy Verified 10/06/24 15:32 Family History (Updated 11/12/20 @ 14:[address] Denise Cota MD) Mother Cancer Mother with history of breast CA. Heart disease CHF Father Heart disease Congenital heart disease, unclear specific type, possibly valve related. Surgical History S/P total hysterectomy and bilateral salpingo-oophorectomy S/P tonsillectomy and adenoidectomy S/p bilateral carpal tunnel release Hx of appendectomy Social History (Updated 11/12/20 @ 14:[address] Denise Cota MD) household members: spouse Smoking Status: Never smoker alcohol intake: current details: Occasional EtOH intake. substance use type: does not use ROS <LO Escoto - Last Filed: 10/06/24 18:18> ROS ED ROS Narrative Constitutional: Negative for fever, chills, weight loss, weakness Eyes: Negative for vision loss, vision change, double vision ENT: Negative for any sore throat, ear pain, congestion Cardiovascular: Negative for any chest pain, tightness, palpitations Respiratory: Negative for any cough, sputum production, hemoptysis, dyspnea, dyspnea on exertion, orthopnea Gastrointestinal: Negative for any diarrhea, constipation, blood in stool, blood in vomit. Positive for epigastric pain, nausea and vomiting : Negative for any urinary frequency, dysuria, retention, blood in urine Muscle skeletal: Negative for any neck pain, back pain Neurological: Negative for any headache, syncope, dizziness Skin: Negative for any rashes, itching, abrasions, lacerations Psychiatric: Negative for any depression, anxiety, stress, suicidal ideation, homicidal ideation Hematologic: Negative for any excessive bruising, easy bleeding EXAM <LO Escoto - Last Filed: 10/06/24 18:18> Physical Exam Narrative Exam Narrative: Vital signs reviewed. HEET: Head normocephalic atraumatic, TMs clear bilaterally. Posterior pharynx is clear, dry mucous membranes. Nares clear bilaterally. Neck: Supple with no lymphadenopathy or tenderness. No signs of meningismus. Cardiac: Regular rate and rhythm no murmurs gallops or rubs, equal peripheral pulses bilaterally. Respiratory: Lungs clear to auscultation bilaterally. No chest tenderness. Abdomen: Soft, nontender, nondistended. No abdominal bruit or pulsatile masses. No hepatosplenomegaly. Patient does have some epigastric pain however no lower abdominal pain. Normal active bowel sounds. Extremities: No peripheral edema, no signs of gross trauma or deformity. Active full range of motion of all extremities. Neuro: Cranial nerves II through XII intact, no focal neurological deficits. Skin: Clean dry and intact with no rash, purpura, petechiae, vesicles or pustules. Backs/flank: No CVA tenderness, no midline spinal tenderness, no deformity. Psych: Normal mood and affect. No SI, HI or acute psychosis. Const Vital Signs: 10/06/24 15:25 10/06/24 15:28 10/06/24 18:21 Temperature 98.5 F 98.5 F 97.9 F Temperature Source Oral Oral Pulse Rate 79 79 81 Respiratory Rate 18 18 16 Blood Pressure 160/90 H 160/90 H 142/89 H Blood Pressure Mean 113 113 106 Pulse Ox 96 96 96 Oxygen Delivery Method Room Air Room Air <Dr. Eddy Cleaning MD - Last Filed: 10/06/24 20:44> Physical Exam Const Vital Signs: 10/06/24 15:25 10/06/24 15:28 10/06/24 18:21 Temperature 98.5 F 98.5 F 97.9 F Temperature Source Oral Oral Pulse Rate 79 79 81 Respiratory Rate 18 18 16 Blood Pressure 160/90 H 160/90 H 142/89 H Blood Pressure Mean 113 113 106 Pulse Ox 96 96 96 Oxygen Delivery Method Room Air Room Air MDM <LO Escoto - Last Filed: 10/06/24 18:18> [facility] Lab Data Labs: Laboratory Results - last 24 hr 10/06/24 10/06/24 15:43 17:37 WBC 7.7 RBC 5.07 Hgb 14.9 Hct 44.3 MCV 87.4 MCH 29.4 MCHC 33.6 RDW Std Deviation 40.5 RDW Coeff of Tricia 12.7 Plt Count 253 MPV 9.1 Immature Gran % (Auto) 0.400 Neut % (Auto) 85.7 H Lymph % (Auto) 9.8 L Hall % (Auto) 3.8 Eos % (Auto) 0.0 Baso % (Auto) 0.3 Absolute Neuts (auto) 6.6 Absolute Lymphs (auto) 0.75 L Nucleated RBC % 0 Sodium 137 Potassium 3.4 Chloride 99 Carbon Dioxide 26.0 Anion Gap 13 BUN 11 Creatinine 0.74 Estim Creat Clear Calc 69.26 Est GFR (MDRD) Non-Af 87 BUN/Creatinine Ratio 15.0 Glucose 118 H Calcium 8.9 Total Bilirubin 0.32 AST 23 ALT 36 H Alkaline Phosphatase 84 Total Protein 7.2 Albumin 4.2 Globulin 3.0 Albumin/Globulin Ratio 1.4 Lipase 9 L Urine Color Yellow Urine Clarity Clear Urine pH 6.0 Ur Specific [place] 1.020 Urine Protein 15 H Urine Glucose (UA) Normal Urine Ketones 50 H Urine Occult Blood 50 H Urine Nitrite Negative Urine Bilirubin Negative Urine Urobilinogen Normal Ur Leukocyte Esterase Negative Urine RBC 5-10 SEEN Urine WBC 0-5 SEEN Ur Squamous Epith Cells 0-5 SEEN Urine Bacteria 2+ Urine Mucus 2+ Treatment and Re-Evaluation :: Differential diagnosis includes however is not limited to: Bowel obstruction, viral gastroenteritis, dehydration, MYRON, COVID-19, influenza, RSV Patient appears generally well, vital signs are stable, patient is nontoxic-appearing. Presenting to the emergency department for complaints of nausea and vomiting, epigastric pain. Patient will receive basic laboratory values, IV fluids, Zofran. Patient did request a COVID-19 influenza RSV swab. Patient will need to be reevaluated. Patient pain is mostly epigastric, I think this is secondary to vomiting. No advanced imaging ordered at this time. Patient CBC was unremarkable, patient's chemistries were unremarkable. Lipase was negative at 9. Patient's COVID-19 influenza RSV was negative. Patient's bacteria was 2+, 0-5 squamous cells, 0-5 white blood cells, this is negative. Patient has asymptomatic bacteria this would not be treated. Patient was given Pepcid, Zofran for discharge. She instructed to maintain hydration. Given strict return precautions <Dr. Eddy Cleaning MD - Last Filed: 10/06/24 20:44> [facility] Narrative Medical decision making narrative: I have personally performed a face to face assessment of the patient and have reviewed the BORA Note. I performed a substantive portion of the visit including all aspects of the following. My flores findings include: History is remarkable for ill contacts. She is concerned she has the flu. She reports nausea and vomiting. She is vomited 5 times since onset which was 1 to 1.5 days ago. She denies diarrhea. She complains of upper abdominal pain. She denies intolerance to greasy or fried foods. She is status post abdominal hysterectomy many years ago. She denies history peptic ulcer disease, hiatal hernia or reflux. She denies history of pancreatitis. She has an antidepressant. The dose has not been changed. She denies urologic symptoms. Denies cough, shortness of breath or difficulty breathing. She denies pain with breathing. Exam is patient is slightly pale and appears ill but not toxic. HEENT exam is remarkable dry mucosa. Lungs are clear to auscultation with symmetric breath sounds. Heart is regular. Rate is normal. There is no murmur, gallop or rub. Abdomen remarkable for increased bowel sounds. There is tenderness in the upper abdomen area of maximal tenderness to the epigastric. She does not have a clinical Rodrigues sign. There is no hepatosplenomegaly. There is no palpable ventral hernia. Medical Decision Making differential diagnosis is viral illness, doubt cholelithiasis/cholecystitis. Doubt pancreatitis. 1 also needs to consider lower lobe pneumonia as a cause upper abdominal pain with nausea and vomiting. However this is unlikely since she has no respiratory symptoms and has no abnormal oscillatory findings. Patient was treated with Zofran for her nausea and vomiting. Will reassess. CBC was obtained to assess white count and differential. Electrolyte panel assess renal function. Other additions or changes: [None] History & Record Review Additional record(s) reviewed:: Prior inpatient record (Patient was admitted for observation status November 2020 for chest pain.) and Prior outpatient record (For dermatologic disorder 2019 for) Lab Data Attestation: I reviewed the patient's lab results. Lab results narrative: CBC is unremarkable. Comprehensive metabolic panel is unremarkable. Glucose slightly elevated 118 with normal CO2 anion gap. ALT is slightly elevated. Urine macro was remarkable positive for protein, ketones and occult blood. Specific gravity was 1.020. Labs: Laboratory Results - last 24 hr 10/06/24 10/06/24 15:43 17:37 WBC 7.7 RBC 5.07 Hgb 14.9 Hct 44.3 MCV 87.4 MCH 29.4 MCHC 33.6 RDW Std Deviation 40.5 RDW Coeff of Tricia 12.7 Plt Count 253 MPV 9.1 Immature Gran % (Auto) 0.400 Neut % (Auto) 85.7 H Lymph % (Auto) 9.8 L Hall % (Auto) 3.8 Eos % (Auto) 0.0 Baso % (Auto) 0.3 Absolute Neuts (auto) 6.6 Absolute Lymphs (auto) 0.75 L Nucleated RBC % 0 Sodium 137 Potassium 3.4 Chloride 99 Carbon Dioxide 26.0 Anion Gap 13 BUN 11 Creatinine 0.74 Estim Creat Clear Calc 69.26 Est GFR (MDRD) Non-Af 87 BUN/Creatinine Ratio 15.0 Glucose 118 H Calcium 8.9 Total Bilirubin 0.32 AST 23 ALT 36 H Alkaline Phosphatase 84 Total Protein 7.2 Albumin 4.2 Globulin 3.0 Albumin/Globulin Ratio 1.4 Lipase 9 L Urine Color Yellow Urine Clarity Clear Urine pH 6.0 Ur Specific [place] 1.020 Urine Protein 15 H Urine Glucose (UA) Normal Urine Ketones 50 H Urine Occult Blood 50 H Urine Nitrite Negative Urine Bilirubin Negative Urine Urobilinogen Normal Ur Leukocyte Esterase Negative Urine RBC 5-10 SEEN Urine WBC 0-5 SEEN Ur Squamous Epith Cells 0-5 SEEN Urine Bacteria 2+ Urine Mucus 2+ Discharge Plan Triage Chief Complaint: Nausea/Vomiting ED Midlevel Provider: Phillip Sorenson ED Provider: Eddy Cleaning Dx/Rx/DC Orders Clinical Impression: Viral gastroenteritis, Elevated blood-pressure reading without diagnosis of hypertension, Acute dehydration Instructions: ED Gastroenteritis, Viral (Adult) Prescriptions: New ondansetron 4 mg tablet,disintegrating 4 mg PO Q8H PRN PRN (Reason: Nausea) Qty: 10 0RF famotidine [Pepcid] 20 mg tablet 20 mg PO DAILY Qty: 20 0RF No Action venlafaxine 75 mg tablet 75 mg PO TID Patient Comments: take 1 tablet by mouth three times a day bupropion HCl 100 mg tablet sustained-release 12 hr 200 mg PO BREAKFAST Patient Comments: take 2 tablet by mouth every morning THEN 1 AT LUNCH TIME, AND ONE AT SUPPER bupropion HCl 100 mg tablet sustained-release 12 hr 100 mg PO BID Patient Comments: take 2 tablet by mouth every morning THEN 1 AT LUNCH TIME, AND ONE AT SUPPER calcium carbonate [Calcium 600] 600 mg calcium (1,500 mg) Tablet 600 mg PO DAILY cyanocobalamin (vitamin B-12) [Vitamin B-12] 500 mcg Tablet 500 mcg PO DAILY Primary Care Provider: Marvin Smith Referrals: Marvin Smith MD [Primary Care Provider] - Activity Restrictions/Additional Instructions: Take the nausea medicine as needed, the Pepcid take in the morning. Advance her diet as tolerated. Print Language: Montserratian Disposition Disposition: Home, Self Care Discharge Date/Time: 10/06/24 18:23
[2024-10-06] MEDS: Ondansetron 4 MG/2 ML Vial IV (15:46)
[2024-10-06 16:00] LABS: Absolute Lymphocyte Count 0.75 X10^3/uL (0.83-4.51); Absolute Neutrophil Count 6.6 X10^3/uL (2.0-7.7); Basophil# 0.02 X10^3/uL; Basophil% 0.3 % (0-1); Hematocrit 44.3 % (37-47); Hemoglobin 14.9 g/dL (12.0-15.0); Lymphocyte # 0.75 X10^3/ul (0.83-4.51); Lymphocyte % 9.8 % (19-41); Mean Corp Hgb Conc 33.6 g/dL (32-36); Mean Corpuscular Hgb 29.4 pg (27.0-32.0); Mean Corpuscular Volume 87.4 fL (81-99); Mean Platelet Vol. 9.1 fl (6.2-12.0); Monocyte# 0.29 X10^3/uL; Monocyte% 3.8 % (0-10); NRBC Flagged by Analyzer 0 % (0-5); Neutrophil % 85.7 % (47-70); Platelet Count 253 K/mm3 (150-450); RBC Distribution Width CV 12.7 % (11.6-14.6); RBC Distribution Width SD 40.5 fl (35.1-43.9); Red Blood Count 5.07 M/mm3 (4.2-5.4); White Blood Count 7.7 K/mm3 (4.4-11.0)
[2024-10-06 16:12] LABS: ALB/GLOB Ratio 1.4 RATIO (0.9-2.4); AST(SGOT) 23 U/L (<=31); Alanine Aminotransfer ALT/SGPT 36 U/L (<=34); Albumin, Serum 4.2 g/dL (3.4-4.8); Alkaline Phosphatase 84 U/L (35-104); Anion Gap 13 (5-15); BUN 11 mg/dL (4-19); Calcium,Total 8.9 mg/dL (7.6-11.0); Chloride 99 mmol/L (98-108); Creatinine, Serum 0.74 mg/dL (0.70-1.20); EST Glomerular Filtration Rate 87 (>60); Estimated Creatinine Clearance 69.26 ml/min (50-250); Glucose 118 mg/dL (70-99); Lipase 9 U/L (13-75); Potassium 3.4 mmol/L (3.3-5.1); Protein, Total 7.2 g/dL (5.9-8.4); Sodium Level 137 mmol/L (133-145); Total Bilirubin 0.32 mg/dL (0.00-1.30)
[2024-10-06 17:45] LABS: Color, Urine Yellow (Yellow); Glucose, Dipstick Normal (Normal); Ketone-Dipstick 50 mg/dl (Negative); Leukocyte Esterase-Dipstick Negative /ul (Negative); Nitrite-Dipstick Negative (Negative); Occult Blood-Urine 50 /ul (Negative); Protein-Dipstick 15 mg/dl (Negative); Urine Bilirubin Dipstick Negative (Negative); Urine Clarity Clear (Clear); Urine Urobilinogen Normal (Normal)
[2024-10-06 17:51] LABS: Bacteria 2+ /hpf (None Seen); Mucous, Urine 2+ /hpf (<or=2+); Red Blood Cells-Urine 5-10 SEEN /hpf (0-5); Squamous Epithelial Cells - UA 0-5 SEEN /hpf (5-10); White Blood Cells 0-5 SEEN /hpf (0-5)
[2024-10-06] MEDS: Famotidine 20 MG Tablet PO (18:19)
[2024-10-06] MEDS: Ondansetron ODT 4 MG Tablet PO (18:19)
[2024-10-06 18:21] VITALS: BP 142/89; PULSE 81; RESP 16; TEMP 36.6; O2SAT 96
== END 2024-10-06 18:23 | disposition home or self-care (01) ==
PROVIDERS: Nurse Practitioner; Emergency Provider Emergency Medicine; PCP Family Medicine; Referring Provider Emergency Medicine; Visit Provider Emergency Medicine
DX: A08.4 Viral intestinal infection, unspecified (principal); E86.0 Dehydration; R03.0 Elevated blood-pressure reading, without diagnosis of hypertension; Z90.710 Acquired absence of both cervix and uterus; F41.8 Other specified anxiety disorders; Z79.899 Other long term (current) drug therapy; Z90.722 Acquired absence of ovaries, bilateral; Z90.49 Acquired absence of other specified parts of digestive tract
CPT/HCPCS: 80053; 81001; 83690; 85025; 87086; 87088; 87631; 96361; 96374; 99283; A4216; J2405

== ENCOUNTER 2024-11-26 10:22 | Outpatient (CLI) | payer MEDICARE, OTHER, SELFPAY ==
[2024-11-26 12:37] LABS: Absolute Lymphocyte Count 1.55 X10^3/uL (0.83-4.51); Absolute Neutrophil Count 6.2 X10^3/uL (2.0-7.7); Basophil# 0.06 X10^3/uL; Basophil% 0.7 % (0-1); Eosinophil# 0.39 X10^3/uL; Eosinophils% 4.5 % (0-5); Hematocrit 42.8 % (37-47); Lymphocyte # 1.55 X10^3/ul (0.83-4.51); Lymphocyte % 17.8 % (19-41); Mean Corp Hgb Conc 32.7 g/dL (32-36); Mean Corpuscular Hgb 28.9 pg (27.0-32.0); Mean Corpuscular Volume 88.2 fL (81-99); Mean Platelet Vol. 9.7 fl (6.2-12.0); Monocyte# 0.44 X10^3/uL; NRBC Flagged by Analyzer 0 % (0-5); Neutrophil # 6.23 X10^3/uL (2.7-7.7); Neutrophil % 71.4 % (47-70); Platelet Count 349 K/mm3 (150-450); RBC Distribution Width CV 12.9 % (11.6-14.6); RBC Distribution Width SD 41.7 fl (35.1-43.9); Red Blood Count 4.85 M/mm3 (4.2-5.4); White Blood Count 8.7 K/mm3 (4.4-11.0)
[2024-11-26 13:15] LABS: Hemoglobin A1c 5.6 % (<=5.6)
[2024-11-26 14:34] LABS: ALB/GLOB Ratio 1.8 RATIO (0.9-2.4); AST(SGOT) 18 U/L (<=31); Alanine Aminotransfer ALT/SGPT 23 U/L (<=34); Albumin, Serum 4.3 g/dL (3.4-4.8); Alkaline Phosphatase 88 U/L (35-104); Anion Gap 11 (5-15); BUN 16 mg/dL (4-19); BUN/Creat Ratio 19.3 RATIO (10-20); Calcium,Total 9.3 mg/dL (7.6-11.0); Chloride 103 mmol/L (98-108); Creatinine, Serum 0.81 mg/dL (0.70-1.20); EST Glomerular Filtration Rate 77 (>60); Globulin 2.4 g/dL (2.2-4.2); Glucose 94 mg/dL (70-99); Potassium 4.1 mmol/L (3.3-5.1); Protein, Total 6.7 g/dL (5.9-8.4); Sodium Level 140 mmol/L (133-145); Total Bilirubin 0.35 mg/dL (0.00-1.30); Vitamin D,25 Hydroxy 42.9 ng/mL (30-100)
== END 2024-11-26 23:59 | disposition home or self-care (01) ==
LOC: MFPLAB 10:22
PROVIDERS: PCP Family Medicine; Referring Provider Family Medicine; Visit Provider Family Medicine
DX: R73.02 Impaired glucose tolerance (oral) (principal); E55.9 Vitamin D deficiency, unspecified
CPT/HCPCS: 36415; 80053; 82306; 83036; 85025

== ENCOUNTER → 2025-01-29 | Outpatient (CLI) | payer MEDICARE, OTHER, SELFPAY ==
--- NOTE | 2025-01-29 11:45 | RAD_ITS ---
PROCEDURE: SHOULDER MIN 2 VIEWS 01/29/2025 REASON FOR EXAM: SHOULDER PAIN TECHNIQUE: SHOULDER MIN 2 VIEWS Laterality: FINDINGS: No evidence of acute fracture or dislocation. Moderate acromioclavicular and mild glenohumeral degenerative changes. RAD/Shoulder min 2 Views IMPRESSION: Osteoarthrosis. Reading Location: [id number]
== END | disposition home or self-care (01) ==
LOC: MTRAD 11:42
PROVIDERS: PCP Family Medicine
DX: M25.511 Pain in right shoulder (principal)
CPT/HCPCS: 73030

== ENCOUNTER → 2025-06-03 | Outpatient (CLI) | payer MEDICARE, OTHER, SELFPAY ==
--- OUTSIDE RECORDS SUMMARY | 2025-06-03 14:10 | XMS RPT_ITS | CCD ---
Author Organization [facility] Care Team Providers Care Bundler Name Role Phone TALI VENTURA, ARLEY Primary Care Physician ARLEY CESAR Primary Care Unavailable Tali VENTURA, Arley Zuluaga Primary Care Provider Tali VENTURA, Dr. Arley Zuluaga Primary Care Provider [phone] Black VENTURA, Dr. Kam Attending Provider [phone] Black VENTURA, Dr. Kam Referring Provider [phone] Black VENTURA, Dr. Kam Emergency Provider Tali VENTURA, Dr. Arley Zuluaga Attending Provider Tali VENTURA, Dr. Arley Zuluaga Referring Provider Tali VENTURA, Dr. Arley Zuluaga Primary Care Provider [phone] Arthurorrow SUPERVISOR ABATTOIR-Hemanth Spencer Attending Provider [phone] Arthurorrow SUPERVISOR ABATTOIR-CHemanth Referring Provider Arley Cesar Referring Unavailable Arley Cesar Attending Unavailable Arley Cesar Primary Care Unavailable Arley Cesar Referring Unavailable Arley Cesar Attending Unavailable Arley Cesar Primary Care Unavailable Arley Cesar Primary Care Unavailable Eddy Cleaning Referring Unavailable Eddy Cleaning Attending Unavailable Arthurorrow SUPERVISOR ABATTOIRHemanth Referring Unavailable Arthurorrow Hemanth ARRIOLA Attending Unavailable Arley Cesar Primary Care Unavailable Medications Current Medications Medication Drug Class(es) Dates Sig (Normalized) Sig (Original) acetaminophen 300 mg / HYDROcodone bitartrate 5 mg oral tablet (1 source) Opioid Agonist Start: 11-25-2021 End: 12-02-2021 take 1 tablet by mouth every six hours as needed for pain acetaminophen-hyd rocodone 300 mg-5 mg oral tablet Dose = 1 tab(s), Oral, q6h, PRN for pain, X 7 day(s), # 28 tab(s), 0 Refill(s), Pharmacy: [id number], Acute post-operative pain, 166, cm, 11/25/21 12:29:00 EDT, Height, 77 Start Date: 11/25/21 Stop Date: 12/02/21 Status: Ordered 12 hr buPROPion hydrochloride 100 mg extended release oral tablet (20 sources) Aminoketone Start: 05-06-2024 buPROPion SR (WELLBUTRIN SR) 100 mg 12 hr tablet take 2 tablets every morning 1 tablet AT LUNCH and 1 tablet AT SUPPER 05/06/2024 Active Start: 11-12-2021 take 1 tablet by mouth every h our buPROPion 100 mg/12 hours (SR) oral tablet, extended release Dose : 100 mg = 1 tab(s), Oral, 12 (noon), 0 Refill(s) Start Date: 11/12/21 Status: Ordered Start: 11-12-2021 take 2 tablets by mo [facility] once daily in the morning buPROPion 100 mg/12 hours (SR) oral tablet, extended release 2 TAB, Oral, qAM, 0 Refill(s) Start Date: 11/12/21 Status: Ordered Start: 11-12-2020 take 1 tablet by kayli every twelve hours at breakfast Bupropion Hcl 100 mg tablet sustained-release 12 hr Active 200 mg PO WITH BREAKFAST November 12, 2020 12:00am Start: 11-12-2020 take 1 tablet by mouth twice d aily Bupropion Hcl 100 mg tablet sustained-release 12 hr Active 100 mg PO TWICE A DAY November 12, 2020 12:00am calcium carbonate 1500 mg or al tablet (13 sources) Start: 11-12-2021 calcium (as ca rbonate) 600 mg oral tablet Dose : 600 mg = 1 tab(s), Oral, Daily, 0 Refill(s) Start Date: 11/12/21 Status: Ordered Start: 11-12-2020 take 1 tablet by kayli once daily Calcium Carbonate (Calcium 600) 600 mg calcium (1,500 mg) Tablet Active 600 mg PO DAILY November 12, 2020 12:00am supplement famotidine 20 mg oral tablet (2 sources) Histamine-2 Receptor Antagonist Start: 10-06-2024 take 1 tablet by mouth once daily Famotidine (Pepcid) 20 mg tablet Active 20 mg PO DAILY 20 0 October 06, 2024 12:00am loratadine 10 mg oral tablet (1 source) Start: 07-08-2024 take 1 tablet by mouth once loratadine (CLARITIN) 10 mg tablet Take 1 tablet by mouth every afternoon. 07/08/2024 Active ondansetron 4 mg disintegrating oral tablet (2 sources) Serotonin-3 Receptor Antagonist Start: 10-06-2024 take 1 tablet by mouth every eight hours as needed for nausea Ondansetron 4 mg tablet,disintegrati ng Active 4 mg PO EVERY 8 HOURS NEEDED as needed for Nausea 10 0 October 06, 2024 12:00am oseltamivir 75 mg oral capsule (1 source) Neuraminidase Inhibitor Start: 07-28-2024 End: 08-02-2024 take 1 capsule by mouth twice daily oseltamivir (TAMIFLU) 75 mg capsule Indications: Viral illness Take 1 capsule by mouth two times a day for 5 days. 10 capsule 07/28/2024 08/02/2024 Active venlafaxine 75 mg oral tablet (14 sources) Serotonin and Norepinephrine Reuptake Inhibitor Start: 11-12-2020 take 1 tablet by mouth three times daily Venlafaxine 75 mg tablet Active 75 mg PO THREE TIMES A DAY November 12, 2020 12:00am vitamin b12 0.5 mg oral tablet (12 sources) Vitamin B12 Start: 11-12-2020 take 1 tablet by mouth once daily Cyanocobalamin (Vitamin B-12) (Vitamin B-12) 500 mcg Tablet Active 500 ug PO DAILY November 12, 2020 12:00am supplement Problems Active Problems Problem Classification Problem Date Documented Da te Episodic/Chronic Diabetes mellitus without complication (1 source) Impaired glucose tolerance (oral); Translations: [Impaired glucose tolerance (oral)] Onset: 12-02-2024 Episodic Fluid and electrolyte disorders (2 sources) Dehydration; Translations: [Dehydration] 10-14-2024 Episodic Nonspecific chest pain (12 sources) Chest pain; Translations: [Chest pain, unspecified] 11-12-2020 Episodic Other circulatory disease (14 sources) Elevated blood-pressure reading without diagnosis of hypertension; Translations: [Elevated blood-pressure reading, without diagnosis of hypertension] 11-12-2020 Episodic Other non-traumatic joint disorders (1 source) Pain in right shoulder; Translations: [Pain in right shoulder] Onset: 02-05-2025 Episodic Viral infection (1 source) Viral disease; Translations: [Viral infection, unspecified] 07-28-2024 Episodic Past or Other Problems Problem Classification Problem Date Documented Da te Episodic/Chronic Intestinal infection (3 sources) Viral gastroenteritis; Translations: [Viral intestinal infection, unspecified] Onset: 10-10-2024 10-14-2024 Episodic Other screening for suspected conditions (not mental disorders or infectious disease) (1 source) Encounter for screening mammogram for malignant neoplasm of breast; Translations: [Encounter for screening mammogram for malignant neoplasm of breast] Onset: 07-30-2024 Episodic Results Test Name Value Interpretation Reference Range Facility Shoulder min 2 Viewson 01-29 Shoulder min 2 Views [facility] [address] [place] [address] [id number] Shoulder min 2 Views MR#: [id number] Acct: [id number] Name: CHARLY OSBORNE Rep #: [id number] : 1950 F 75 From: Ceasar Figueroa MD PCP: Dr. Arley Cesar MD Status: REG CLI Study: Shoulder min 2 Views Date of Exam: 01/29/25 Exam# [id number] Ordering Dr: Hemanth Harkins NP, NP -Tj PROCEDURE: SHOULDER MIN 2 VIEWS 01/29/2025 REASON FOR EXAM: SHOULDER PAIN TECHNIQUE: SHOULDER MIN 2 VIEWS Laterality: FINDINGS: No evidence of acute fracture or dislocation. Moderate acromioclavicular and mild glenohumeral degenerative changes. RAD/Shoulder min 2 Views IMPRESSION: Osteoarthrosis. Reading Location: [facility]-VL CC: Hemanth ARRIOLA SUPERVISOR ABATTOIR-C Torin; Dr. Arley Cesar MD Customer Assistance Representative: Signed Normal [facility] Absolute lymphocyte countOrd ered By: Arley Cesar on 11-26-2024 Lymphocytes Auto (Unsp spec) [#/Vol] 1.55 10*3/uL 0.83-4.51 [facility] Absolute neutrophil countOrd ered By: Arley Cesar on 11-26-2024 Neutrophils (Bld) [#/Vol] 6.2 10*3/uL 2.0-7.7 [facility] Anion gap in Serum or Plasma Ordered By: Arley Cesar on 11-26-2024 Anion gap [Moles/Vol] 11 mmol/L 5-15 [facility] Automated lymphocyte count a s percentage of total leukocytesOrdered By: Arley Cesar on 11-26-2024 Lymphocytes/100 WBC Auto (Unsp spec) 17.8 % Low 19-41 [facility] BUN/creatinine ratioOrdered By: Arley Cesar on 11-26-2024 Urea nitrogen/Creatinine [Mass ratio] 19.3 mg/mg 10-20 [facility] Basophil percentageOrdered B y: Arley Cesar on 11-26-2024 Basophils/100 WBC (Bld) 0.7 % 0-1 [facility] Bilirubin, totalOrdered By: Arley Cesar on 11-26-2024 Bilirubin [Mass/Vol] 0.35 mg/dL 0.00-1.30 [facility] CBC W/Diff, Automatedon 11-10 Absolute Lymph 1.55 X10 3/uL Normal 0.83-4.51 [facility] Comment on above: Order Comment: Order Date: 05/29/24 Order Info: 0184-1 - CBCD Performed By: #### L 500.4050, L100.0100, L501.9985 #### [facility] [address] [place], [address] Absolute Neut 6.2 X10 3/uL Normal 2.0-7.7 [facility] Comment on above: Order Comment: Order Date: 05/29/24 Order Info: 0184-1 - CBCD Performed By: #### L 500.4050, L100.0100, L501.9985 #### [facility] [address] [place], [address] Basophils/100 WBC (Bld) 0.7 % Normal 0-1 [facility] Comment on above: Order Comment: Order Date: 05/29/24 Order Info: 0184-1 - CBCD Performed By: #### L 500.4050, L100.0100, [id number] #### [facility] [address] [place], [address] Eosinophils/100 WBC (Bld) 4.5 % Normal 0-5 [facility] Comment on above: Order Comment: Order Date: 05/29/24 Order Info: 0184-1 - CBCD Performed By: #### L 500.4050, L100.0100, [id number] #### [facility] [address] [place], [address] Erythrocyte distribution width (RBC) [Ratio] 12.9 % Normal 11.6-14.6 [facility] Comment on above: Order Comment: Order Date: 05/29/24 Order Info: 0184-1 - CBCD Performed By: #### L 500.4050, L100.0100, [id number] #### [facility] [address] [place], [address] Hematocrit (Bld) [Volume fraction] 42.8 % Normal 37-47 [facility] Comment on above: Order Comment: Order Date: 05/29/24 Order Info: 0184-1 - CBCD Performed By: #### L 500.4050, L100.0100, [id number] #### [facility] [address] [place], [address] Hemoglobin (Bld) [Mass/Vol] 14.0 g/dL Normal 12.0-15.0 [facility] Comment on above: Order Comment: Order Date: 05/29/24 Order Info: 0184-1 - CBCD Performed By: #### L 500.4050, L100.0100, L501.9985 #### [facility] [address] [place] [place], [address] IG% 0.600 Normal 0.0-0.9 [facility] Comment on above: Order Comment: Order Date: 05/29/24 Order Info: 0184- - CBCD Result Comment: IG% - Immature Granulocytes (promyelocytes, myelocytes and metamyelocytes) > 1% indicates that a LEFT SHIFT is Present. Performed By: #### L 500.4050, L100.0100, L501.9985 #### [facility] [address] [place], [address] Lymphocytes/100 WBC (Bld) 17.8 % Low 19-41 [facility] Comment on above: Order Comment: Order Date: 05/29/24 Order Info: 018- - CBCD Performed By: #### L 500.4050, L100.0100, [id number] #### [facility] [address] [place], [address] MCH (RBC) [Entitic mass] 28.9 pg Normal 27.0-32.0 [facility] Comment on above: Order Comment: Order Date: 05/29/24 Order Info: 0184- - CBCD Performed By: #### L 500.4050, L100.0100, [id number] #### [facility] [address] [place], [address] MCHC (RBC) [Mass/Vol] 32.7 g/dL Normal 32-36 [facility] Comment on above: Order Comment: Order Date: 05/29/24 Order Info: 0184- - CBCD Performed By: #### L 500.4050, L100.0100, L501.9985 #### [facility] [address] [place], [address] MCV (RBC) [Entitic vol] 88.2 fL Normal 81-99 [facility] Comment on above: Order Comment: Order Date: 05/29/24 Order Info: 018- - CBCD Performed By: #### L 500.4050, L100.0100, [id number] #### [facility] [address] [place], [address] Monocytes/100 WBC (Bld) 5.0 % Normal 0-10 [facility] Comment on above: Order Comment: Order Date: 05/29/24 Order Info: 0184-1 - CBCD Performed By: #### L 500.4050, L100.0100, [id number] #### [facility] [address] [place], [address] Neutrophils/100 WBC (Bld) 71.4 % High 47-70 [facility] Comment on above: Order Comment: Order Date: 05/29/24 Order Info: 0184-1 - CBCD Performed By: #### L 500.4050, L100.0100, [id number] #### [facility] [address] [place], [address] Nucleated RBC (Bld) [#/Vol] 0 10*3/uL Normal 0-5 [facility] Comment on above: Order Comment: Order Date: 05/29/24 Order Info: 0184-1 - CBCD Performed By: #### L 500.4050, L100.0100, [id number] #### [facility] [address] [place], [address] Platelet mean volume (Bld) [Entitic vol] 9.7 fL Normal 6.2-12.0 [facility] Comment on above: Order Comment: Order Date: 05/29/24 Order Info: 0184-1 - CBCD Performed By: #### L 500.4050, L100.0100, L501.9985 #### [facility] [address] [place], [address] Platelets (Bld) [#/Vol] 349 10*3/uL Normal 150-450 [facility] Comment on above: Order Comment: Order Date: 05/29/24 Order Info: 0184-1 - CBCD Performed By: #### L 500.4050, L100.0100, [id number] #### [facility] [address] [place], [address] RBC (Bld) [#/Vol] 4.85 10*6/uL Normal 4.2-5.4 [facility] Comment on above: Order Comment: Order Date: 05/29/24 Order Info: 018-1 - CBCD Performed By: #### L 500.4050, L100.0100, [id number] #### [facility] [address] [place], [address] RDW SD 41.7 fl Normal 35.1-43.9 [facility] Comment on above: Order Comment: Order Date: 05/29/24 Order Info: 018- - CBCD Performed By: #### L 500.4050, L100.0100, L501.9985 #### [facility] [address] [place], [address] WBC (Bld) [#/Vol] 8.7 10*3/uL Normal 4.4-11.0 [facility] Comment on above: Order Comment: Order Date: 05/29/24 Order Info: 018- - CBCD Performed By: #### L 500.4050, L100.0100, L501.9985 #### [facility] [address] [place], [address] Carbon dioxide, total [Moles /volume] in Central venous bloodOrdered By: Arley Cesar on 11-26-2024 CO2 [Moles/Vol] 25.0 mmol/L 21.0-32.0 [facility] Chloride assayOrdered By: Zeynep Cesar on 11-26-2024 Chloride [Moles/Vol] 103 mmol/L 98-108 [facility] Comprehensive Metabolic Prof ilon 11-26-2024 Albumin [Mass/Vol] 4.3 g/dL Normal 3.4-4.8 [facility] Comment on above: Order Comment: Order Date: 05/29/24Order Info: 0786-1 - CMP Performed By: #### L 400.0001, 8 #### [facility] [address] [place], [address] Albumin/Globulin [Mass ratio] 1.8 {ratio} Normal 0.9-2.4 [facility] Comment on above: Order Comment: Order Date: 05/29/24Order Info: 0786-1 - CMP Performed By: #### L 400.0001, 8 #### [facility] [address] [place], [address] ALK PHOS 88 U/L Normal 35-104 [facility] Comment on above: Order Comment: Order Date: 05/29/24Order Info: 0786-1 - CMP Performed By: #### L 400.0001, #### [facility] [address] [place], [address] ALT [Catalytic activity/Vol] 23 U/L Normal <=34 [facility] Comment on above: Order Comment: Order Date: 05/29/24Order Info: 0786-1 - CMP Performed By: #### L 400.0001, #### [facility] [address] [place], [address] AST [Catalytic activity/Vol] 18 U/L Normal <=31 [facility] Comment on above: Order Comment: Order Date: 05/29/24Order Info: 0786-1 - CMP Performed By: #### L 400.0001, 8 #### [facility] [address] [place], [address] Bilirubin [Mass/Vol] 0.35 mg/dL Normal 0.00-1.30 [facility] Comment on above: Order Comment: Order Date: 05/29/24Order Info: 0786-1 - CMP Performed By: #### L 400.0001, #### [facility] [address] [place], [address] BUN/CRE 19.3 RATIO Normal 10-20 [facility] Comment on above: Order Comment: Order Date: 05/29/24Order Info: 0786-1 - CMP Performed By: #### L 400.0001, #### [facility] [address] [place], [address] Calcium [Mass/Vol] 9.3 mg/dL Normal 7.6-11.0 [facility] Comment on above: Order Comment: Order Date: 05/29/24Order Info: 0786-1 - CMP Performed By: #### L 400.0001, #### [facility] [address] [place], [address] Chloride [Moles/Vol] 103 mmol/L Normal 98-108 [facility] Comment on above: Order Comment: Order Date: 05/29/24Order Info: 0786-1 - CMP Performed By: #### L 400.0001, #### [facility] [address] [place], [address] CO2 [Moles/Vol] 25.0 mmol/L Normal 21.0-32.0 [facility] Comment on above: Order Comment: Order Date: 05/29/24Order Info: 0786-1 - CMP Performed By: #### L 400.0001, #### [facility] [address] [place], [address] Creatinine [Mass/Vol] 0.81 mg/dL Normal 0.70-1.20 [facility] Comment on above: Order Comment: Order Date: 05/29/24Order Info: 0786-1 - CMP Performed By: #### L 400.0001, #### [facility] [address] [place], [address] GAP 11 Normal 5-15 [facility] Comment on above: Order Comment: Order Date: 05/29/24Order Info: 0786-1 - CMP Performed By: #### L 400.0001, M1.8 #### [facility] [address] [place], [address] GFR/1.73 sq M.predicted among non-blacks MDRD (S/P/Bld) [Vol rate/Area] 77 mL/min/{1.73_m2} Normal >60 [facility] Comment on above: Order Comment: Order Date: 05/29/24Order Info: 07-1 - CMP Result Comment: mL/m in/1.73m2 CKD-EPI Creatinine Equation (2020) Performed By: #### L 400.0001, 8 #### [facility] [address] [place], [address] Globulin (S) [Mass/Vol] 2.4 g/dL Normal 2.2-4.2 [facility] Comment on above: Order Comment: Order Date: 05/29/24Order Info: 0786-1 - CMP Performed By: #### L 400.0001, 8 #### [facility] [address] [place], [address] Glucose [Mass/Vol] 94 mg/dL Normal 70-99 [facility] Comment on above: Order Comment: Order Date: 05/29/24Order Info: 0786-1 - CMP Performed By: #### L 400.0001, 8 #### [facility] [address] [place], [address] Potassium [Moles/Vol] 4.1 mmol/L Normal 3.3-5.1 [facility] Comment on above: Order Comment: Order Date: 05/29/24Order Info: 0786-1 - CMP Performed By: #### L 400.0001, 8 #### [facility] [address] [place], [address] Sodium [Moles/Vol] 140 mmol/L Normal 133-145 [facility] Comment on above: Order Comment: Order Date: 05/29/24Order Info: 0786-1 - CMP Performed By: #### L 400.0001, M100.678 #### [facility] [address] [place], [address] T PROT 6.7 g/dL Normal 5.9-8.4 [facility] Comment on above: Order Comment: Order Date: 05/29/24Order Info: 0786-1 - CMP Performed By: #### L 400.0001, M100.678 #### [facility] [address] [place], [address] Urea nitrogen [Mass/Vol] 16 mg/dL Normal 4-19 [facility] Comment on above: Order Comment: Order Date: 05/29/24Order Info: 0786-1 - CMP Performed By: #### L 400.0001, M100.678 #### [facility] [address] [place], [address] Eosinophil percentageOrdered By: Arley Cesar on 11-26-2024 Eosinophils/100 WBC (Bld) 4.5 % 0-5 [facility] Erythrocyte distribution wid th ratioOrdered By: Arley Cesar on 11-26-2024 Erythrocyte distribution width (RBC) [Ratio] 12.9 % 11.6-14.6 [facility] Erythrocyte distribution wid th standard deviationOrdered By: Arley Cesar on 11-26-2024 Erythrocyte distribution width (RBC) [Ratio] 41.7 fl 35.1-43.9 [facility] Glomerular filtration rate ( GFR) estimation/1.73 sq m using serum, plasma, or whole bOrdered By: Arley Cesar on 11-26-2024 GFR/1.73 sq M.predicted among non-blacks MDRD (S/P/Bld) [Vol rate/Area] 77 mL/min/{1.73_m2} >60 [facility] Comment on above: mL/min/1.73m2 CKD-EP I Creatinine Equation (2020) Hematocrit Auto (Bld) [Volum e fraction]Ordered By: Arley Cesar on 11-26-2024 Hematocrit (Bld) [Volume fraction] 42.8 % 37-47 [facility] Hemoglobin A1con 11-26-2024 HbA1c (Bld) [Mass fraction] 5.6 % Normal <=5.6 [facility] Comment on above: Order Comment: Order Date: 05/29/24 Order Info: 4548-4 - A1C Result Comment: Norm al < 5.7 % Prediabetic 5.7 - 6.4 % Diabetic >or= 6.5 % Please note range changes. Performed By: #### L 500.4050, L100.0100, L501.9985 #### [facility] [place], [address] Hemoglobin A1c percentageOrd ered By: Arley Cesar on 11-26-2024 HbA1c (Bld) [Mass fraction] 5.6 % <5.7 [facility] Comment on above: Normal < 5.7 % Predi abetic 5.7 - 6.4 % Diabetic >or= 6.5 % Please note range changes. Hemoglobin measurementOrdere d By: Arley Cesar on 11-26-2024 Hemoglobin (Bld) [Mass/Vol] 14.0 g/dL 12.0-15.0 [facility] Immature granulocytes/100 WB C Auto (Bld)Ordered By: Arley Cesar on 11-26-2024 Immature granulocytes/100 WBC (Bld) 0.600 % 0.0-0.9 [facility] Comment on above: IG% - Immature Granu locytes (promyelocytes, myelocytes and metamyelocytes) > 1% indicates that a LEFT SHIFT is Present. Laboratory - Chemistry and C hemistry - challengeOrdered By: Arley Cesar on 11-26-2024 AST [Catalytic activity/Vol] 18 U/L <32 [facility] MCV (mean corpuscular volume ) determinationOrdered By: Arley Cesar on 11-26-2024 MCV (RBC) [Entitic vol] 88.2 fL 81-99 [facility] Mean corpuscular hemoglobin (MCH) determinationOrdered By: Arley Cesar on 11-26-2024 MCH (RBC) [Entitic mass] 28.9 pg 27.0-32.0 [facility] Mean corpuscular hemoglobin concentration (MCHC) determinationOrdered By: Arley Cesar on 11-26-2024 MCHC (RBC) [Mass/Vol] 32.7 g/dL 32-36 [facility] Mean platelet volume determi nationOrdered By: Arley Cesar on 11-26-2024 Platelet mean volume (Bld) [Entitic vol] 9.7 fL 6.2-12.0 [facility] Monocyte percentageOrdered B y: Arley Cesar on 11-26-2024 Monocytes/100 WBC (Bld) 5.0 % 0-10 [facility] Neutrophil percentageOrdered By: Arley Cesar on 11-26-2024 Neutrophils/100 WBC (Bld) 71.4 % High 47-70 [facility] Nucleated red blood cell per centageOrdered By: Arley Cesar on 11-26-2024 Nucleated RBC/100 WBC (Bld) [Ratio] 0 % 0-5 [facility] Platelet countOrdered By: Zeynep Cesar on 11-26-2024 Platelets (Bld) [#/Vol] 349 10*3/uL 150-450 [facility] Potassium measurement (mass/ volume)Ordered By: Arley Cesar on 11-26-2024 Potassium (Unsp spec) [Mass/Vol] 4.1 mmol/L 3.3-5.1 [facility] RBC Auto (Bld) [#/Vol]Ordere d By: Arley Cesar on 11-26-2024 RBC (Bld) [#/Vol] 4.85 10*6/uL 4.2-5.4 [facility] Serum creatinine measurement (mass/volume)Ordered By: Arley Cesar on 11-26-2024 Creatinine [Mass/Vol] 0.81 mg/dL 0.70-1.20 [facility] Serum globulin measurementOr dered By: Arley Cesar on 11-26-2024 Globulin (S) [Mass/Vol] 2.4 g/dL 2.2-4.2 [facility] Serum glucose measurement (m ass/volume)Ordered By: Arley Cesar on 11-26-2024 Glucose [Mass/Vol] 94 mg/dL 70-99 [facility] Serum or plasma alanine haro otransferase (ALT) measurementOrdered By: Arley Cesar on 11-26-2024 ALT [Catalytic activity/Vol] 23 U/L <35 [facility] Serum or plasma albumin gideon urement (mass/volume)Ordered By: Arley Cesar on 11-26-2024 Albumin [Mass/Vol] 4.3 g/dL 3.4-4.8 [facility] Serum or plasma albumin/glob ulin mass ratioOrdered By: Arley Cesar on 11-26-2024 Albumin/Globulin [Mass ratio] 1.8 {ratio} 0.9-2.4 [facility] Serum or plasma alkaline misa sphatase measurementOrdered By: Arley Cesar on 11-26-2024 ALP [Catalytic activity/Vol] 88 U/L 35-104 [facility] Serum or plasma calcium gideon urement (mass/volume)Ordered By: Arley Cesar on 11-26-2024 Calcium [Mass/Vol] 9.3 mg/dL 7.6-11.0 [facility] Serum or plasma urea nitroge n measurement (mass/volume)Ordered By: Arley Cesar on 11-26-2024 Urea nitrogen [Mass/Vol] 16 mg/dL 4-19 [facility] Sodium levelOrdered By: Arley Cesar on 11-26-2024 Sodium [Moles/Vol] 140 mmol/L 133-145 [facility] Total proteinOrdered By: Donald Cesar on 11-26-2024 Protein [Mass/Vol] 6.7 g/dL 5.9-8.4 [facility] Vitamin D,25 Hydroxyon 11-26 Vitamin D 25-OH 42.9 ng/mL Normal 30-100 [facility] Comment on above: Order Comment: Order Date: 05/29/24 Order Info: 0786-1 - CMP Result Comment: Lexis min D Status Deficiency: <20 ng/mL (50nmol/L) Insufficiency: 20-30 ng/mL (50-75 nmol/L) Sufficiency: 30-100 ng/mL (75-250 nmol/L) Toxicity: >100 ng/mL (>250 nmol/L) Performed By: #### L 506.1001 #### [facility] [address] [place], [place], [id number] White blood cell (WBC) count Ordered By: Arley Cesar on 11-26-2024 WBC (Bld) [#/Vol] 8.7 10*3/uL 4.4-11.0 [facility] Urine Cultureon 10-08-2024 URC Below infection level. Mixed Gram Positive Organisms Baird Count 1000-10,000 MIXC Mixed contaminants. Submit a new specimen if indicated. Normal [facility] Comment on above: Performed By: #### M 100.2200 #### [facility] [address] [place], [place], [id number] Absolute lymphocyte countOrd ered By: Phillip Sorenson on 10-06-2024 Lymphocytes Auto (Unsp spec) [#/Vol] 0.75 10*3/uL Low 0.83-4.51 [facility] Absolute neutrophil countOrd ered By: Phillip Sorenson on 10-06-2024 Neutrophils (Bld) [#/Vol] 6.6 10*3/uL 2.0-7.7 [facility] Anion gap in Serum or Plasma Ordered By: Phillip Sorenson on 10-06-2024 Anion gap [Moles/Vol] 13 mmol/L 5-15 [facility] Automated blood erythrocyte countOrdered By: Phillip Sorenson on 10-06-2024 RBC (Bld) [#/Vol] 5.07 10*6/uL Normal 4.2-5.4 [facility] Comment on above: Performed By: #### L 400.0001, M100.678 #### [facility] [address] [place], [place], [id number] Automated blood hematocrit ( percentage)Ordered By: Phillip Sorenson on 10-06-2024 Hematocrit (Bld) [Volume fraction] 44.3 % Normal 37-47 [facility] Comment on above: Performed By: #### L 400.0001, #### [facility] [address] [place], [address] Automated lymphocyte count a s percentage of total leukocytesOrdered By: Phillip Sorenson on 10-06-2024 Lymphocytes/100 WBC Auto (Unsp spec) 9.8 % Low 19-41 [facility] BUN/creatinine ratioOrdered By: Phillip Sorenson on 10-06-2024 Urea nitrogen/Creatinine [Mass ratio] 15.0 mg/mg 10-20 [facility] Basophil percentageOrdered B y: Phillip Sorenson on 10-06-2024 Basophils/100 WBC (Bld) 0.3 % Normal 0-1 [facility] Comment on above: Performed By: #### L 400.0001, #### [facility] [address] [place], [address] Bilirubin Test strip Ql (U)O rdered By: Phillip Sorenson on 10-06-2024 Bilirubin Ql (U) Negative Negative [facility] Bilirubin, totalOrdered By: Phillip Sorenson on 10-06-2024 Bilirubin [Mass/Vol] 0.32 mg/dL 0.00-1.30 [facility] CBC W/Diff, Automatedon 09-11 Absolute Lymph 0.75 X10 3/uL Low 0.83-4.51 [facility] Comment on above: Performed By: #### L 400.0001, #### [facility] [address] [place], [address] Absolute Neut 6.6 X10 3/uL Normal 2.0-7.7 [facility] Comment on above: Performed By: #### L 400.0001, 8 #### [facility] [address] [place], [address] IG% 0.400 Normal 0.0-0.9 [facility] Comment on above: Result Comment: IG% - Immature Granulocytes (promyelocytes, myelocytes and metamyelocytes) > 1% indicates that a LEFT SHIFT is Present. Performed By: #### L 400.0001, #### [facility] [address] [place], [address] Lymphocytes/100 WBC (Bld) 9.8 % Low 19-41 [facility] Comment on above: Performed By: #### L 400.0001, #### [facility] [address] [place], [address] Nucleated RBC (Bld) [#/Vol] 0 10*3/uL Normal 0-5 [facility] Comment on above: Performed By: #### L 400.0001, #### [facility] [address] [place], [address] RDW SD 40.5 fl Normal 35.1-43.9 [facility] Comment on above: Performed By: #### L 400.0001, #### [facility] [address] [place], [address] Carbon dioxide, total [Moles /volume] in Central venous bloodOrdered By: Phillip Sorenson on 10-06-2024 CO2 [Moles/Vol] 26.0 mmol/L 21.0-32.0 [facility] Chloride assayOrdered By: Art Sorenson on 10-06-2024 Chloride [Moles/Vol] 99 mmol/L 98-108 [facility] Comprehensive Metabolic Prof ilon 10-06-2024 Albumin [Mass/Vol] 4.2 g/dL Normal 3.4-4.8 [facility] Comment on above: Performed By: #### L 400.0001, #### [facility] [address] [place], [address] Albumin/Globulin [Mass ratio] 1.4 {ratio} Normal 0.9-2.4 [facility] Comment on above: Performed By: #### L 400.0001, #### [facility] [address] [place], [address] ALK PHOS 84 U/L Normal 35-104 [facility] Comment on above: Performed By: #### L 400.0001, #### [facility] [address] [place], [address] ALT [Catalytic activity/Vol] 36 U/L High <=34 [facility] Comment on above: Performed By: #### L 400.0001, #### [facility] [address] [place], [address] AST [Catalytic activity/Vol] 23 U/L Normal <=31 [facility] Comment on above: Performed By: #### L 400.0001, #### [facility] [address] [place], [address] Bilirubin [Mass/Vol] 0.32 mg/dL Normal 0.00-1.30 [facility] Comment on above: Performed By: #### L 400.0001, #### [facility] [address] [place], [address] BUN/CRE 15.0 RATIO Normal 10-20 [facility] Comment on above: Performed By: #### L 400.0001, #### [facility] [address] [place], [address] Calcium [Mass/Vol] 8.9 mg/dL Normal 7.6-11.0 [facility] Comment on above: Performed By: #### L 400.0001, #### [facility] [address] [place], [address] Chloride [Moles/Vol] 99 mmol/L Normal 98-108 [facility] Comment on above: Performed By: #### L 400.0001, #### [facility] [address] [place], [address] CO2 [Moles/Vol] 26.0 mmol/L Normal 21.0-32.0 [facility] Comment on above: Performed By: #### L 400.0001, #### [facility] [address] [place], [address] Creatinine [Mass/Vol] 0.74 mg/dL Normal 0.70-1.20 [facility] Comment on above: Performed By: #### L 400.0001, #### [facility] [address] [place], [address] ECRCL 69.26 ml/min Normal 50-250 [facility] Comment on above: Performed By: #### L 400.0001, #### [facility] [address] [place], [address] GAP 13 Normal 5-15 [facility] Comment on above: Performed By: #### L 400.0001, #### [facility] [address] [place], [address] GFR/1.73 sq M.predicted among non-blacks MDRD (S/P/Bld) [Vol rate/Area] 87 mL/min/{1.73_m2} Normal >60 [facility] Comment on above: Result Comment: mL/m in/1.73m2 CKD-EPI Creatinine Equation (2020) Performed By: #### L 400.0001, #### [facility] [address] [place], [address] Globulin (S) [Mass/Vol] 3.0 g/dL Normal 2.2-4.2 [facility] Comment on above: Performed By: #### L 400.0001, #### [facility] [address] [place], [address] Glucose [Mass/Vol] 118 mg/dL High 70-99 [facility] Comment on above: Performed By: #### L 400.0001, 8 #### [facility] [address] [place], [address] Potassium [Moles/Vol] 3.4 mmol/L Normal 3.3-5.1 [facility] Comment on above: Performed By: #### L 400.0001, 8 #### [facility] [address] [place], [address] Sodium [Moles/Vol] 137 mmol/L Normal 133-145 [facility] Comment on above: Performed By: #### L 400.0001, #### [facility] [address] [place], [address] T PROT 7.2 g/dL Normal 5.9-8.4 [facility] Comment on above: Performed By: #### L 400.0001, .8 #### [facility] [address] [place], [address] Urea nitrogen [Mass/Vol] 11 mg/dL Normal 4-19 [facility] Comment on above: Performed By: #### L 400.0001, 8 #### [facility] [address] [place], [address] Emergency Department Summary on 10-06-2024 Emergency Department Summary [facility] Medical Records Department [address] [place] [address] Emergency Department Summary 10/06/24 MR#: [id number] Acct: [id number] Name: CHARLY OSBORNE Rep #: [id number] : 1950 74 From: Eddy Cleaning MD PCP: Dr. Arley Cesar MD Status:DEP ER Location: ED HPI History of Present Illness Chief Complaint: Nausea/Vomiting Narrative Narrative: Patient is a 74-year-old female with history of anxiety, depression who presents to the emergency department for epigastric pain, nausea and vomiting. Patient states that 2 nights ago, she brought a friend over to the [facility] apartment for the same. Pay states she developed some nausea and vomiting. Patient states that she is having difficulty keeping even water down. She is feeling weak and is here for evaluation [facility] Medical History (Updated 10/06/24 @ 20:[address] Eddy Cleaning MD) Anxiety and depression Home Medications ???Medication ???Instructions ???Recorded ???Last Taken ???Type bupropion HCl 100 mg tablet,12 hr 100 mg PO BID 11/12/20 11/11/20 H istory sustained-release bupropion HCl 100 mg tablet,12 hr 200 mg PO BREAKFAST 11/12/2008/30 History sustained-release calcium carbonate (Calcium 600) 600 mg PO DAILY supplement 1 11/12/20 History cyanocobalamin (vitamin B-12) 500 500 mcg PO DAILY supplement 11/1211/12/20 History mcg tablet (Vitamin B-12) venlafaxine 75 mg tablet 75 mg PO TID 11/12/20 11/12/20 His tory famotidine 20 mg tablet (Pepcid) 20 mg PO DAILY #20 tabs 10/06/24 U nknown Rx ondansetron 4 mg disintegrating 4 mg PO Q8H PRN PRN Nausea #10 tab s 10/06/24 Unknown Rx tablet Allergy/AdvReac Type Severity Reaction Status Date / Time No Known Allergies Allergy Verified 10/06/24 15:32 Family History (Updated 11/12/20 @ 14:[address] Denise Cota MD) Mother Cancer Mother with history of breast CA. Heart disease CHF Father Heart disease Congenital heart disease, unclear specific type, possibly valve related. Surgical History S/P total hysterectomy and bilateral salpingo-oophorectomy S/P tonsillectomy and adenoidectomy S/p bilateral carpal tunnel release Hx of appendectomy Social History (Updated 11/12/20 @ 14:[address] Denise Cota MD) household members: spouse Smoking Status: Never smoker alcohol intake: current details: Occasional EtOH intake. substance use type: does not use ROS ROS ED ROS Narrative Constitutional: Negative for fever, chills, weight loss, weakness Eyes: Negative for vision loss, vision change, double vision ENT: Negative for any sore throat, ear pain, congestion Cardiovascular: Negative for any chest pain, tightness, palpitations Respiratory: Negative for any cough, sputum production, hemoptysis, dyspnea, dyspnea on exertion, orthopnea Gastrointestinal: Negative for any diarrhea, constipation, blood in stool, blood in vomit. Positive for epigastric pain, nausea and vomiting : Negative for any urinary frequency, dysuria, retention, blood in urine Muscle skeletal: Negative for any neck pain, back pain Neurological: Negative for any headache, syncope, dizziness Skin: Negative for any rashes, itching, abrasions, lacerations Psychiatric: Negative for any depression, anxiety, stress, suicidal ideation, homicidal ideation Hematologic: Negative for any excessive bruising, easy bleeding EXAM Physical Exam Narrative Exam Narrative: Vital signs reviewed. HEET: Head normocephalic atraumatic, TMs clear bilaterally. Posterior pharynx is clear, dry mucous membranes. Nares clear bilaterally. Neck: Supple with no lymphadenopathy or tenderness. No signs of meningismus. Cardiac: Regular rate and rhythm no murmurs gallops or rubs, equal peripheral pulses bilaterally. Respiratory: Lungs clear to auscultation bilaterally. No chest tenderness. Abdomen: Soft, nontender, nondistended. No abdominal bruit or pulsatile masses. No hepatosplenomegaly. Patient does have some epigastric pain however no lower abdominal pain. Normal active bowel sounds. Extremities: No peripheral edema, no signs of gross trauma or deformity. Active full range of motion of all extremities. Neuro: Cranial nerves II through XII intact, no focal neurological deficits. Skin: Clean dry and intact with no rash, purpura, petechiae, vesicles or pustules. Backs/flank: No CVA tenderness, no midline spinal tenderness, no deformity. Psych: Normal mood and affect. No SI, HI or acute psychosis. Const Vital Signs: 10/06/24 15:25 10/06/24 15:28 10/06/24 18:21 Temperature 98.5 F 98.5 F 97.9 F Temperature Source Oral Oral Pulse Rate 79 79 81 Respiratory Rate 18 18 16 Blood Pressure 160/90 H 160/90 H 142/89 H Blood Pressure Mean 113 113 106 P (more content not included)... Normal [facility] Eosinophil percentageOrdered By: Phillip Sorenson on 10-06-2024 Eosinophils/100 WBC (Bld) 0.0 % Normal 0-5 [facility] Comment on above: Performed By: #### L 400.0001, M100.678 #### [facility] [address] [place], [address] Erythrocyte distribution wid th ratioOrdered By: Phillip Sorenson on 10-06-2024 Erythrocyte distribution width (RBC) [Ratio] 12.7 % Normal 11.6-14.6 [facility] Comment on above: Performed By: #### L 400.0001, M1.678 #### [facility] [address] [place], [place], [id number] Erythrocyte distribution wid th standard deviationOrdered By: Phillip Sorenson on 10-06-2024 Erythrocyte distribution width (RBC) [Ratio] 40.5 fl 35.1-43.9 [facility] Glomerular filtration rate ( GFR) estimation/1.73 sq m using serum, plasma, or whole bOrdered By: Phillip Sorenson on 10-06-2024 GFR/1.73 sq M.predicted among non-blacks MDRD (S/P/Bld) [Vol rate/Area] 87 mL/min/{1.73_m2} >60 [facility] Comment on above: mL/min/1.73m2 CKD-EP I Creatinine Equation (2020) Hemoglobin measurementOrdere d By: Phillip Sorenson on 10-06-2024 Hemoglobin (Bld) [Mass/Vol] 14.9 g/dL Normal 12.0-15.0 [facility] Comment on above: Performed By: #### L 400.0001, M1.678 #### [facility] [address] [place], [place], [address] Immature granulocytes/100 WB C Auto (Bld)Ordered By: Phillip Sorenson on 10-06-2024 Immature granulocytes/100 WBC (Bld) 0.400 % 0.0-0.9 [facility] Comment on above: IG% - Immature Granu locytes (promyelocytes, myelocytes and metamyelocytes) > 1% indicates that a LEFT SHIFT is Present. Influenza virus A and B and SARS-CoV-2 (COVID-19) and Respiratory syncytial virus RNAOrdered By: Phillip Sorenson on 10-06-2024 SARS-CoV-2 (COVID-19) RNA MIC+probe Ql (Unsp spec) [facility] Ketones Test strip Ql (U)Ord ered By: Phillip Sorenson on 10-06-2024 Ketones Ql (U) 50 mg/dl High Negative [facility] - Chemistry and C hemistry - challengeOrdered By: Phillip Sorenson on 10-06-2024 AST [Catalytic activity/Vol] 23 U/L <32 [facility] Lipaseon 10-06-2024 Lipase [Catalytic activity/Vol] 9 U/L Low 13-75 [facility] Comment on above: Result Comment: Primo gupta note: LIPASE revised reference range effective 22. New Lipase methodology. Expected to produce lower values than the previous assay method. NEW Reference Range: 13 - 75 U/L Performed By: #### L 400.0001, M100.678 #### [facility] [address] [place], [address] Lipase measurementOrdered By : Phillip Sorenson on 10-06-2024 Lipase [Catalytic activity/Vol] 9 U/L Low 13-75 [facility] Comment on above: Please note:LIPASE r evised reference range effective 22. New Lipase methodology. Expected to produce lower values than the previous assay method. NEW Reference Range: 13 - 75 U/L M100.678on 10-06-2024 M100.678 Pending SARS-CoV-2 (COVID 19) Negative INFLUENZA A Negative INFLUENZA B Negative RSV PCR Negative Normal [facility] Comment on above: Performed By: #### L 400.0001, M100.678 #### [facility] [address] [place], [address] MCV (mean corpuscular volume ) determinationOrdered By: Phillip Sorenson on 10-06-2024 MCV (RBC) [Entitic vol] 87.4 fL Normal 81-99 [facility] Comment on above: Performed By: #### L 400.0001, M100.678 #### [facility] [address] [place], [address] Mean corpuscular hemoglobin (MCH) determinationOrdered By: Phillip Sorenson on 10-06-2024 MCH (RBC) [Entitic mass] 29.4 pg Normal 27.0-32.0 [facility] Comment on above: Performed By: #### L 400.0001, M100.678 #### [facility] [address] [place], [address] Mean corpuscular hemoglobin concentration (MCHC) determinationOrdered By: Phillip Sorenson on 10-06-2024 MCHC (RBC) [Mass/Vol] 33.6 g/dL Normal 32-36 [facility] Comment on above: Performed By: #### L 400.0001, M100.678 #### [facility] [address] [place], [address] Mean platelet volume determi nationOrdered By: Phillip Sorenson on 10-06-2024 Platelet mean volume (Bld) [Entitic vol] 9.1 fL Normal 6.2-12.0 [facility] Comment on above: Performed By: #### L 400.0001, M1.678 #### [facility] [address] [place], [address] Microscopic analysis of urin e for red blood cells (RBC)Ordered By: Phillip Sorenson on 10-06-2024 Microscopic analysis of urine for red blood cells (RBC) 5-10 SEEN /hpf 0-5 [facility] Monocyte percentageOrdered B y: Phillip Sorenson on 10-06-2024 Monocytes/100 WBC (Bld) 3.8 % Normal 0-10 [facility] Comment on above: Performed By: #### L 400.0001, M100.678 #### [facility] [address] [place], [address] Mucus LM Ql (Urine sed)Order ed By: Phillip Sorenson on 10-06-2024 Mucus Ql (Urine sed) 2+ /hpf [facility] Neutrophil percentageOrdered By: Phillip Sorenson on 10-06-2024 Neutrophils/100 WBC (Bld) 85.7 % High 47-70 [facility] Comment on above: Performed By: #### L 400.0001, M100.678 #### [facility] [address] [place], [address] Nitrite Test strip Ql (U)Ord ered By: Phillip Sorenson on 10-06-2024 Nitrite Ql (U) Negative Negative [facility] Nucleated red blood cell per centageOrdered By: Phillip Sorenson on 10-06-2024 Nucleated RBC/100 WBC (Bld) [Ratio] 0 % 0-5 [facility] Platelet countOrdered By: Art ul Delta on 10-06-2024 Platelets (Bld) [#/Vol] 253 10*3/uL Normal 150-450 [facility] Comment on above: Performed By: #### L 400.0001, M100.678 #### [facility] [address] [place], [address] Potassium measurement (mass/ volume)Ordered By: Phillip Sorenson on 10-06-2024 Potassium (Unsp spec) [Mass/Vol] 3.4 mmol/L 3.3-5.1 [facility] Protein Test strip Ql (U)Ord ered By: Phillip Sorenson on 10-06-2024 Protein Ql (U) 15 mg/dl High Negative [facility] Serum creatinine measurement (mass/volume)Ordered By: Phillip Sorenson on 10-06-2024 Creatinine [Mass/Vol] 0.74 mg/dL 0.70-1.20 [facility] Serum globulin measurementOr dered By: Phillip Sorenson on 10-06-2024 Globulin (S) [Mass/Vol] 3.0 g/dL 2.2-4.2 [facility] Serum glucose measurement (m ass/volume)Ordered By: Phillip Sorenson on 10-06-2024 Glucose [Mass/Vol] 118 mg/dL High 70-99 [facility] Serum or plasma alanine haro otransferase (ALT) measurementOrdered By: Phillip Sorenson on 10-06-2024 ALT [Catalytic activity/Vol] 36 U/L High <35 [facility] Serum or plasma albumin gideon urement (mass/volume)Ordered By: Phillip Sorenson on 10-06-2024 Albumin [Mass/Vol] 4.2 g/dL 3.4-4.8 [facility] Serum or plasma albumin/glob ulin mass ratioOrdered By: Phillip Sorenson on 10-06-2024 Albumin/Globulin [Mass ratio] 1.4 {ratio} 0.9-2.4 [facility] Serum or plasma alkaline misa sphatase measurementOrdered By: Phillip Sorenson on 10-06-2024 ALP [Catalytic activity/Vol] 84 U/L 35-104 [facility] Serum or plasma calcium gideon urement (mass/volume)Ordered By: Phillip Sorenson on 10-06-2024 Calcium [Mass/Vol] 8.9 mg/dL 7.6-11.0 [facility] Serum or plasma urea nitroge n measurement (mass/volume)Ordered By: Phillip Sorenson on 10-06-2024 Urea nitrogen [Mass/Vol] 11 mg/dL 4-19 [facility] Sodium levelOrdered By: Phillip Sorenson on 10-06-2024 Sodium [Moles/Vol] 137 mmol/L 133-145 [facility] Squamous epithelial cells de tection in urine sediment by light microscopyOrdered By: Phillip Sorenson on 10-06-2024 Epithelial cells.squamous LM Ql (Urine sed) 0-5 SEEN /hpf 5-10 [facility] Total proteinOrdered By: Reanna Sorenson on 10-06-2024 Protein [Mass/Vol] 7.2 g/dL 5.9-8.4 [facility] Urinalysis, Completeon 10-06 BACTERIA 2+ /hpf Normal None Seen [facility] Comment on above: Order Comment: CLEAN CATCH Performed By: #### L 400.0001, M100.678 #### [facility] [address] [place], [address] EPI,SQUAMOUS 0-5 SEEN Normal 5-10 [facility] Comment on above: Order Comment: CLEAN CATCH Performed By: #### L 400.0001, M100.678 #### [facility] [address] [place], [address] Mucus Ql (Urine sed) 2+ /hpf Normal [facility] Comment on above: Order Comment: CLEAN CATCH Performed By: #### L 400.0001, M100.678 #### [facility] [address] [place], [address] RBC 5-10 SEEN Normal 0-5 [facility] Comment on above: Order Comment: CLEAN CATCH Performed By: #### L 400.0001, M100.678 #### [facility] [address] [place], [address] WBC 0-5 SEEN Normal 0-5 [facility] Comment on above: Order Comment: CLEAN CATCH Performed By: #### L 400.0001, M100.678 #### [facility] [address] [place], [address] Urine clarityOrdered By: Reanna Sorenson on 10-06-2024 Clarity (U) Clear Clear [facility] Urine color determinationOrd ered By: Phillip Sorenson on 10-06-2024 Color (U) Yellow Yellow [facility] Urine cultureOrdered By: Reanna Sorenson on 10-06-2024 Bacteria identified Cx Nom (U) Positive Abnormal [facility] Urine glucose detectionOrder ed By: Phillip Sorenson on 10-06-2024 Glucose Ql (U) Normal mg/dl Normal [facility] Urine leukocyte esterase det ection by dipstickOrdered By: Phillip Sorenson on 10-06-2024 Leukocyte esterase Test strip Ql (U) Negative Negative [facility] Urine pHOrdered By: Phillip aburto on 10-06-2024 pH (U) 6.0 [pH] 5.0 - 8.0 [facility] Urine sediment bacteria coun t by microscopy (number/high power field)Ordered By: Phillip Sorenson on 10-06-2024 Bacteria LM.HPF (Urine sed) [#/Area] 2 /[HPF] None Seen [facility] Urine specific gravity measu rementOrdered By: Phillip Sorenson on 10-06-2024 Specific gravity (U) [Rel density] 1.020 1.002-1.030 [facility] Urine urobilinogen measureme ntOrdered By: Phillip Sorenson on 10-06-2024 Urobilinogen Ql (U) Normal mg/dl Normal [facility] White blood cell (WBC) count Ordered By: Phillip Sorenson on 10-06-2024 WBC (Bld) [#/Vol] 7.7 10*3/uL Normal 4.4-11.0 [facility] Comment on above: Performed By: #### L 400.0001, M100.678 #### [facility] [place], [address] White blood cell countOrdere d By: Phillip Sorenson on 10-06-2024 White blood cell count 0-5 SEEN /hpf 0-5 [facility] CNOVon 07-28-2024 CNOV Office Visit (UCWSTR ) CHARLY OSBORNE ([id number]) 1950 F Date Time Provider Department 07/28/24 11:00 AM CECI MENDES [facility] During your visit today, we recorded the following information about you: Temperature Pulse Respiration Blood pressure 100.1 degrees 103/minute 18/minute 142/82 Weight 85.2 kg Ceci Mendes APRN.[employer] 07/28/2024 11:32 AM Signed This note was created using testbirdsriter. Subjective Charly Osborne is a 74 year old female. Presents for 2 day history of fever, chills, fatigue, cough and vomiting. Patient reports she has vomited 2-3 times over the past couple of days. Denies SOB, CP, abdominal pain, diarrhea. Objective BP 142/82 Pulse 103 Temp 37.8 ?C (100.1 ?F) (Tympanic) Resp 18 Wt 85.2 kg (187 lb 13.3 oz) SpO2 95% Physical Exam PHYSICAL EXAMINATION: General appearance: Well appearing, alert, in no acute distress, well-hydrated, well nourished. Nose/Sinuses: Positive findings: mucosa erythematous and swollen, purulent rhinorrhea Oropharynx: Lips, mucosa, and tongue normal, teeth and gums normal, oropharynx normal Neck: Supple, no adenopathy; thyroid symmetric, normal size, no bruits Lungs: Lungs clear to auscultation. No wheezing, rhonchi, rales. Heart: RRR without murmur, gallop, or rubs. No ectopy Abdomen: Normal abdominal exam, Abdomen soft, non-tender. Bowel sounds normal. No masses, organomegaly Assessment and Plan ASSESSMENT/PLAN: 1. Viral illness - ICD9: 079.99, ICD10: B34.9 - Discussed viral etiology and rationale for treatment. - Symptomatic treatment with prn analgesia - Supportive care with fluids and rest - The patient may also use OTC cough and cold meds as needed, warm salt water gargles, throat lozenges and/or OTC throat spray as needed, and nasal saline gtts and suction prn. - Follow up in 3-5 days if symptoms persist or sooner if worsening of symptoms - INFLUENZA AANDB MOLECULAR (POC) - OSELTAMIVIR 75 MG CAPSULE Ceci Mendes APRN.[employer]IGNER Allergies As of Date: 07/28/2024 (No Known Allergies) Date Reviewed: 07/28/2024 Reviewed by: Chiara Britton LPN - Fully Assessed Reason for Visit: Cough [28] Cmt: Cough, vomiting, nasal congestion, fatigue and upset stomach x 2 days Primary Visit Diagnosis:Viral illness [B34.9] Order(s):INFLUENZA AANDB MOLECULAR (POC) [0790103] Order #: [id number]. #:[id number] oseltamivir (TAMIFLU) 75 mg capsuleTake 1 capsule by mouth two times a day for 5 days.Disp: 10 capsuleRfl: 0 Prescriptions as of 07/28/2024 - buPROPion SR (WELLBUTRIN SR) 100 mg 12 hr tablet take 2 tablets every morning 1 tablet AT LUNCH and 1 tablet AT SUPPER - loratadine (CLARITIN) 10 mg tablet Take 1 tablet by mouth every afternoon. - venlafaxine (EFFEXOR) 75 mg tablet Take 75 mg by mouth three times a day. - oseltamivir (TAMIFLU) 75 mg capsule Take 1 capsule by mouth two times a day for 5 days. Problem List As Of Date: 07/28/2024 (None) Prescriptions ordered this encounter Disp Refills Start End OSELTAMIVIR 75 MG CAPSULE 10 c* 0 07/28/2024 08/02/2024 Route: ORAL Sig: Take 1 capsule by mouth two times a day for 5 days. Disposition: Return if symptoms worsen or fail to improve. Follow-up and Disposition History for Encounter Date Provider Department Center 07/28/2024 [id number] MENDES [facility] Encounter Status:Closed by CECI MENDES on 07/28/24 Normal [facility] INFLUENZA A&B MOLECULAR (POC )on 07-28-2024 Flu A (POCT) Positive Abnormal Negative [facility] Comment on above: Location:[address], [place], [address] Interpretation and review of laboratory results Abnormal [facility] Procedural Control Valid [facility] Location:[address], [address] [facility] POINT OF CARE [facility] Dexa Bone Density Studyon Dexa Bone Density Study [facility] Imaging Services [address] [place], [place] [id number] Dexa Bone Density Study MR#: [id number] Acct: [id number] Name: CHARLY OSBORNE Rep #: [id number] : 1950 F 74 From: Otf whitmore MD PCP: Dr. Arley Cesar MD Status: REG CLI Study: Dexa Bone Density Study Date of Exam: 07/11/24 Exam# [id number] Ordering Dr: Arley Cesar MD PROCEDURE: DEXA BONE DENSITY STUDY REASON FOR EXAM: F, age 74 y/o . Patient is postmenopausal.. Patient is postmenopausal. TECHNIQUE: DEXA scan of the lumbar spine and both hips. COMPARISON: Comparison is made with prior study dated April 29, 2021. FINDINGS: Lumbar Spine (L1-L4): g/cm2 (0.847)/T-score (-1.6)/Z-score (0.6) findings are suggestive of osteopenia with a low fracture risk. Left Femur Total: g/cm2 (0.913)/T-score (-0.2)/Z-score (1.4) Left Femoral Neck: g/cm2 (0.641)/T-score (-1.9)/Z-score (0.1) Right Femur Total: g/cm2 (0.941)/T-score (0.0)/Z-score (1.6) Right Femoral Neck: g/cm2 (0.686)/T-score (-1.5)/Z-score (0.5) The T-Scores on the most recent prior examination were: Lumbar Spine (L1-L4): There has been decrease of bone density since the previous examination. BD/Dexa Bone Density Study IMPRESSION: OSTEOPENIA. Reading Location: [place] [address] CC: Dr. Arley Cesar MD Customer Assistance Representative: Signed Normal [facility] SCRN MAMM (CAD)W/MICHAELLEFarhan Asencio n 07-11-2024 SCRN MAMM (CAD)W/MICHAELLE BILAT [facility] Imaging Services [address] [place], [place] [id number] SCRN MAMM (CAD)W/MICHAELLEFarhan VALENCIA MR#: [id number] Acct: [id number] Name: CHARLY OSBORNE Rep #: [id number] : 1950 F 74 From: Otf whitmore MD PCP: Dr. Arley Cesar MD Status: [facility] Study: SCRN MAMM (CAD)W/MICHAELLE BILAT Date of Exam: 06/14 Exam# [id number] Ordering Dr: Arley Cesar MD PROCEDURE: SCRN MAMM (CAD)W/MICHAELLE BILAT REASON FOR EXAM: F, Age 74 y/o, annual follow-up. Sister with breast cancer mother with breast cancer. TECHNIQUE: Bilateral screening digital breast tomosynthesis with 2D and 3D images. Computer aided detection. COMPARISON: Prior exam(s) dating back to June 02, 2023.. FINDINGS: There are scattered areas of fibroglandular density. Stable examination. No suspicious masses, areas of developing architectural distortion, or suspicious calcifications. BI/SCRN MAMM (CAD)W/MICHAELLE BILAT IMPRESSION: BI-RADS 1: NEGATIVE. RECOMMEND ANNUAL MAMMOGRAPHIC SCREENING. Follow-up code: Routine Follow-up The patient will be notified of the results by letter. Reading Location: [place] [address] CC: Dr. Arley Cesar MD Customer Assistance Representative: Signed Normal [facility] Basophil percentageOrdered B y: Dr. Cesar on 10-28-2022 Chloride [Moles/Vol] 109 mmol/L 98-107 [facility] Glucose [Mass/Vol] 88 mg/dL 74-106 [facility] Potassium [Moles/Vol] 4.0 mmol/L 3.5-5.1 [facility] Sodium [Moles/Vol] 141 mmol/L 136-145 [facility] Laboratory - Chemistry and C hemistry - challengeOrdered By: Dr. Cesar on 10-28-2022 CO2 [Moles/Vol] 25.0 mmol/L 21.0-32.0 [facility] Urea nitrogen/Creatinine [Mass ratio] 24.9 mg/mg 10-20 [facility] No Panel InformationOrdered By: Dr. Cesar on 10-28-2022 Estimated GFR (MDRD) Amer 85 mL/min >60 [facility] Comment on above: GFR Calc Estimated GFR (MDRD) Non-Af Amer 71 mL/min >60 [facility] Comment on above: Non- GFR Calc Serum or plasma calcium gideon urement (mass/volume)Ordered By: Dr. Cesar on 10-28-2022 Calcium [Mass/Vol] 8.8 mg/dL 8.5-10.1 [facility] Serum or plasma creatinine m easurement (mass/volume)Ordered By: Dr. Cesar on 10-28-2022 Creatinine [Mass/Vol] 0.84 mg/dL 0.55-1.02 [facility] Comment on above: The validity of the calculated GFR & GFRAA in patients over 70 years has not been determined. Clinical correlation is essential. Serum or plasma urea nitroge n measurement (mass/volume)Ordered By: Dr. Cesar on 10-28-2022 Urea nitrogen [Mass/Vol] 21 mg/dL 7-18 [facility] Thin prep Papanicolaou smear with manual screeningOrdered By: Dr. Cesar on 10-28-2022 Thin prep Papanicolaou smear with manual screening 7 5-15 [facility] Absolute lymphocyte countOrd ered By: Dr. Cesar on 10-19-2022 Lymphocytes Auto (Unsp spec) [#/Vol] 1.89 10*3/uL 0.83-4.51 [facility] Basophil percentageOrdered B y: Dr. Cesar on 10-19-2022 Basophils/100 WBC (Bld) 0.7 % 0-1 [facility] Bilirubin [Mass/Vol] 0.20 mg/dL 0.20-1.00 [facility] Comment on above: For patients on eltr ombopag therapy, use of Dimension [place] TBIL is not recommended. Chloride [Moles/Vol] 107 mmol/L 98-107 [facility] Eosinophils/100 WBC (Bld) 3.7 % 0-5 [facility] Glucose [Mass/Vol] 87 mg/dL 74-106 [facility] Neutrophils (Bld) [#/Vol] 5.8 10*3/uL 2.0-7.7 [facility] Neutrophils/100 WBC (Bld) 68.4 % 47-70 [facility] Potassium [Moles/Vol] 3.8 mmol/L 3.5-5.1 [facility] Protein [Mass/Vol] 6.8 g/dL 6.4-8.2 [facility] Sodium [Moles/Vol] 140 mmol/L 136-145 [facility] WBC (Bld) [#/Vol] 8.4 10*3/uL 4.4-11.0 [facility] Blood erythrocytes count (nu mber/volume)Ordered By: Dr. Cesar on 10-19-2022 RBC (Bld) [#/Vol] 4.74 10*6/uL 4.2-5.4 [facility] Blood hemoglobin measurement (mass/volume)Ordered By: Dr. Cesar on 10-19-2022 Hemoglobin (Bld) [Mass/Vol] 13.9 g/dL 12.0-15.0 [facility] Blood lymphocytes/100 leukoc ytesOrdered By: Dr. Ceasr on 10-19-2022 Lymphocytes/100 WBC (Bld) 22.4 % 19-41 [facility] Blood monocytes/100 leukocyt esOrdered By: Dr. Cesar on 10-19-2022 Monocytes/100 WBC (Bld) 4.6 % 0-10 [facility] Blood platelet mean volumeOr dered By: Dr. Cesar on 10-19-2022 Platelet mean volume (Bld) [Entitic vol] 10.2 fL 6.2-12.0 [facility] Determination of erythrocyte mean corpuscular volume (MCV)Ordered By: Dr. Cesar on 10-19-2022 MCV (RBC) [Entitic vol] 90.3 fL 81-99 [facility] Hematocrit Auto (Bld) [Volum e fraction]Ordered By: Dr. Cesar on 10-19-2022 Hematocrit (Bld) [Volume fraction] 42.8 % 37-47 [facility] Laboratory - Chemistry and C hemistry - challengeOrdered By: Dr. Cesar on 10-19-2022 ALP [Catalytic activity/Vol] 78 U/L 45-117 [facility] ALT [Catalytic activity/Vol] 31 U/L 13-56 [facility] CO2 [Moles/Vol] 28.0 mmol/L 21.0-32.0 [facility] Globulin (S) [Mass/Vol] 3.0 g/dL 2.2-4.2 [facility] Urea nitrogen/Creatinine [Mass ratio] 18.9 mg/mg 10-20 [facility] Laboratory - Hematology and Cell countsOrdered By: Dr. Cesar on 10-19-2022 Erythrocyte distribution width (RBC) [Entitic vol] 41.0 fL 35.1-43.9 [facility] Erythrocyte distribution width (RBC) [Ratio] 12.5 % 11.6-14.6 [facility] Immature granulocytes/100 WBC (Bld) 0.200 % 0.0-0.9 [facility] Comment on above: IG% - Immature Granu locytes (promyelocytes, myelocytes and metamyelocytes) > 1% indicates that a LEFT SHIFT is Present. MCH (RBC) [Entitic mass] 29.3 pg 27.0-32.0 [facility] Nucleated RBC/100 WBC (Bld) [Ratio] 0 % 0-5 [facility] MCHC Auto (RBC) [Mass/Vol]Or dered By: Dr. Cesar on 10-19-2022 MCHC (RBC) [Mass/Vol] 32.5 g/dL 32-36 [facility] No Panel InformationOrdered By: Dr. Cesar on 10-19-2022 Estimated GFR (MDRD) Amer 66 mL/min >60 [facility] Comment on above: GFR Calc Estimated GFR (MDRD) Non-Af Amer 54 mL/min >60 [facility] Comment on above: Non- GFR Calc Vitamin D 25-Hydroxy 72.5 ng/mL [facility] Comment on above: Vitamin D 25(OH) Sta tus Range Deficiency <20 ng/mL (50nmol/L) Insufficiency 20 - 30 ng/mL (50 - 75 nmol/L) Sufficiency 30 - 100 ng/mL (75 - 250 nmol/L) Toxicity >100 ng/mL (>250 nmol/L) Platelets bldOrdered By: Dr. Cesar on 10-19-2022 Platelets (Bld) [#/Vol] 319 10*3/uL 150-450 [facility] Serum or plasma albumin gideon urement (mass/volume)Ordered By: Dr. Cesar on 10-19-2022 Albumin [Mass/Vol] 3.8 g/dL 3.2-5.0 [facility] Serum or plasma albumin/glob ulin mass ratioOrdered By: Dr. Cesar on 10-19-2022 Albumin/Globulin [Mass ratio] 1.3 {ratio} 0.9-2.4 [facility] Serum or plasma calcium gideon urement (mass/volume)Ordered By: Dr. Cesar on 10-19-2022 Calcium [Mass/Vol] 9.0 mg/dL 8.5-10.1 [facility] Serum or plasma creatinine m easurement (mass/volume)Ordered By: Dr. Cesar on 10-19-2022 Creatinine [Mass/Vol] 1.06 mg/dL 0.55-1.02 [facility] Comment on above: The validity of the calculated GFR & GFRAA in patients over 70 years has not been determined. Clinical correlation is essential. Serum or plasma urea nitroge n measurement (mass/volume)Ordered By: Dr. Cesar on 10-19-2022 Urea nitrogen [Mass/Vol] 20 mg/dL 7-18 [facility] Thin prep Papanicolaou smear with manual screeningOrdered By: Dr. Cesar on 10-19-2022 Thin prep Papanicolaou smear with manual screening 16 U/L 15-37 [facility] Thin prep Papanicolaou smear with manual screening 5 5-15 [facility] Whole blood hemoglobin A1c/t otal hemoglobin ratio (mass fraction)Ordered By: Dr. Cesar on 10-19-2022 HbA1c (Bld) [Mass fraction] 5.4 % 3.8-5.6 [facility] Comment on above: Normal < 5.7 % Predi abetic 5.7 - 6.4 % Diabetic >or= 6.5 % Please note range changes. XR FLUORO > 2 HRS TECH TIMEo n 11-25-2021 XR FLUORO > 2 HRS TECH TIME ORIGINAL Images acquired, not reported on this accession number. Normal [facility] ([place]) Absolute lymphocyte counton 11-02-2021 Lymphocytes Auto (Unsp spec) [#/Vol] 2.10 10*3/uL 0.83-4.51 [facility] Work Phone: Basophil percentageon 2021 Basophils/100 WBC (Bld) 0.6 % 0-1 [facility] Work Phone: [phone] Bilirubin [Mass/Vol] 0.30 mg/dL 0.20-1.00 [facility] Work Phone: [phone] Comment on above: For patients on eltr ombopag therapy, use of Dimension [place] TBIL is not recommended. Chloride [Moles/Vol] 107 mmol/L 98-107 [facility] Work Phone: Eosinophils/100 WBC (Bld) 3.6 % 0-5 [facility] Work Phone: Glucose [Mass/Vol] 109 mg/dL 74-106 [facility] Work Phone: Comment on above: Fasting Glucose resu lt from 100 to 125 mg/dL suggests IMPAIRED HOMEOSTASIS per A.D.A. criteria. Neutrophils (Bld) [#/Vol] 5.3 10*3/uL 2.0-7.7 [facility] Work Phone: Neutrophils/100 WBC (Bld) 64.3 % 47-70 [facility] Work Phone: Potassium [Moles/Vol] 4.0 mmol/L 3.5-5.1 [facility] Work Phone: [phone] Protein [Mass/Vol] 7.0 g/dL 6.4-8.2 [facility] Work Phone: [phone] Sodium [Moles/Vol] 140 mmol/L 136-145 [facility] Work Phone: [phone] WBC (Bld) [#/Vol] 8.3 10*3/uL 4.4-11.0 [facility] Work Phone: Blood erythrocytes count (nu mber/volume)on 11-02-2021 RBC (Bld) [#/Vol] 4.97 10*6/uL 4.2-5.4 [facility] Work Phone: Blood hemoglobin measurement (mass/volume)on 11-02-2021 Hemoglobin (Bld) [Mass/Vol] 14.5 g/dL 12.0-15.0 [facility] Work Phone: Blood lymphocytes/100 leukoc yteson 11-02-2021 Lymphocytes/100 WBC (Bld) 25.4 % 19-41 [facility] Work Phone: Blood monocytes/100 leukocyt eson 11-02-2021 Monocytes/100 WBC (Bld) 5.7 % 0-10 [facility] Work Phone: Blood platelet mean volumeon 11-02-2021 Platelet mean volume (Bld) [Entitic vol] 10.4 fL 6.2-12.0 [facility] Work Phone: Determination of erythrocyte mean corpuscular volume (MCV)on 11-02-2021 MCV (RBC) [Entitic vol] 90.7 fL 81-99 [facility] Work Phone: Hematocrit Auto (Bld) [Volum e fraction]on 11-02-2021 Hematocrit (Bld) [Volume fraction] 45.1 % 37-47 [facility] Work Phone: Laboratory - Chemistry and C hemistry - challengeon 11-02-2021 ALP [Catalytic activity/Vol] 88 U/L 45-117 [facility] Work Phone: ALT [Catalytic activity/Vol] 30 U/L 13-56 [facility] Work Phone: CO2 [Moles/Vol] 27.0 mmol/L 21.0-32.0 [facility] Work Phone: Globulin (S) [Mass/Vol] 3.2 g/dL 2.2-4.2 [facility] Work Phone: Urea nitrogen/Creatinine [Mass ratio] 18.4 mg/mg 10-20 [facility] Work Phone: Laboratory - Hematology and Cell countson 11-02-2021 Erythrocyte distribution width (RBC) [Entitic vol] 40.6 fL 35.1-43.9 [facility] Work Phone: Erythrocyte distribution width (RBC) [Ratio] 12.3 % 11.6-14.6 [facility] Work Phone: Immature granulocytes/100 WBC (Bld) 0.400 % 0.0-0.9 [facility] Work Phone: Comment on above: IG% - Immature Granu locytes (promyelocytes, myelocytes and metamyelocytes) > 1% indicates that a LEFT SHIFT is Present. MCH (RBC) [Entitic mass] 29.2 pg 27.0-32.0 [facility] Work Phone: Nucleated RBC/100 WBC (Bld) [Ratio] 0 % 0-5 [facility] Work Phone: MCHC Auto (RBC) [Mass/Vol]on 11-02-2021 MCHC (RBC) [Mass/Vol] 32.2 g/dL 32-36 [facility] Work Phone: No Panel Informationon 11-02 Estimated GFR (MDRD) Amer 68 mL/min >60 [facility] Work Phone: Comment on above: GFR Calc Estimated GFR (MDRD) Non-Af Amer 56 mL/min >60 [facility] Work Phone: Comment on above: Non- GFR Calc Platelets bldon 11-02-2021 Platelets (Bld) [#/Vol] 356 10*3/uL 150-450 [facility] Work Phone: Serum or plasma albumin gideon urement (mass/volume)on 11-02-2021 Albumin [Mass/Vol] 3.8 g/dL 3.2-5.0 [facility] Work Phone: Serum or plasma albumin/glob ulin mass ratioon 11-02-2021 Albumin/Globulin [Mass ratio] 1.2 {ratio} 0.9-2.4 [facility] Work Phone: Serum or plasma calcium gideon urement (mass/volume)on 11-02-2021 Calcium [Mass/Vol] 8.9 mg/dL 8.5-10.1 [facility] Work Phone: Serum or plasma creatinine m easurement (mass/volume)on 11-02-2021 Creatinine [Mass/Vol] 1.03 mg/dL 0.55-1.02 [facility] Work Phone: Comment on above: The validity of the calculated GFR & GFRAA in patients over 70 years has not been determined. Clinical correlation is essential. Serum or plasma urea nitroge n measurement (mass/volume)on 11-02-2021 Urea nitrogen [Mass/Vol] 19 mg/dL 7-18 [facility] Work Phone: Thin prep Papanicolaou smear with manual screeningon 11-02-2021 Thin prep Papanicolaou smear with manual screening 15 U/L 15-37 [facility] Work Phone: Thin prep Papanicolaou smear with manual screening 6 5-15 [facility] Work Phone: Absolute lymphocyte counton 10-07-2021 Lymphocytes Auto (Unsp spec) [#/Vol] 1.48 10*3/uL 0.83-4.51 [facility] Work Phone: Basophil percentageon 2021 Basophils/100 WBC (Bld) 0.6 % 0-1 [facility] Work Phone: Chloride [Moles/Vol] 108 mmol/L 98-107 [facility] Work Phone: Eosinophils/100 WBC (Bld) 3.0 % 0-5 [facility] Work Phone: Glucose [Mass/Vol] 99 mg/dL 74-106 [facility] Work Phone: Neutrophils (Bld) [#/Vol] 6.6 10*3/uL 2.0-7.7 [facility] Work Phone: Neutrophils/100 WBC (Bld) 74.2 % 47-70 [facility] Work Phone: Potassium [Moles/Vol] 4.1 mmol/L 3.5-5.1 [facility] Work Phone: Sodium [Moles/Vol] 140 mmol/L 136-145 [facility] Work Phone: WBC (Bld) [#/Vol] 8.9 10*3/uL 4.4-11.0 [facility] Work Phone: Blood erythrocytes count (nu mber/volume)on 10-07-2021 RBC (Bld) [#/Vol] 5.05 10*6/uL 4.2-5.4 [facility] Work Phone: Blood hemoglobin measurement (mass/volume)on 10-07-2021 Hemoglobin (Bld) [Mass/Vol] 14.7 g/dL 12.0-15.0 [facility] Work Phone: Blood lymphocytes/100 leukoc yteson 10-07-2021 Lymphocytes/100 WBC (Bld) 16.6 % 19-41 [facility] Work Phone: Blood monocytes/100 leukocyt eson 10-07-2021 Monocytes/100 WBC (Bld) 5.3 % 0-10 [facility] Work Phone: Blood platelet mean volumeon 10-07-2021 Platelet mean volume (Bld) [Entitic vol] 10.2 fL 6.2-12.0 [facility] Work Phone: Determination of erythrocyte mean corpuscular volume (MCV)on 10-07-2021 MCV (RBC) [Entitic vol] 88.3 fL 81-99 [facility] Work Phone: Hematocrit Auto (Bld) [Volum e fraction]on 10-07-2021 Hematocrit (Bld) [Volume fraction] 44.6 % 37-47 [facility] Work Phone: Laboratory - Chemistry and C hemistry - challengeon 10-07-2021 CO2 [Moles/Vol] 25.0 mmol/L 21.0-32.0 [facility] Work Phone: Urea nitrogen/Creatinine [Mass ratio] 21.9 mg/mg 10-20 [facility] Work Phone: Laboratory - Hematology and Cell countson 10-07-2021 Erythrocyte distribution width (RBC) [Entitic vol] 40.5 fL 35.1-43.9 [facility] Work Phone: Erythrocyte distribution width (RBC) [Ratio] 12.5 % 11.6-14.6 [facility] Work Phone: Immature granulocytes/100 WBC (Bld) 0.300 % 0.0-0.9 [facility] Work Phone: Comment on above: IG% - Immature Granu locytes (promyelocytes, myelocytes and metamyelocytes) > 1% indicates that a LEFT SHIFT is Present. MCH (RBC) [Entitic mass] 29.1 pg 27.0-32.0 [facility] Work Phone: Nucleated RBC/100 WBC (Bld) [Ratio] 0 % 0-5 [facility] Work Phone: MCHC Auto (RBC) [Mass/Vol]on 10-07-2021 MCHC (RBC) [Mass/Vol] 33.0 g/dL 32-36 [facility] Work Phone: No Panel Informationon 10-07 Estimated GFR (MDRD) Amer 89 mL/min >60 [facility] Work Phone: Comment on above: GFR Calc Estimated GFR (MDRD) Non-Af Amer 73 mL/min >60 [facility] Work Phone: Comment on above: Non- GFR Calc Platelets bldon 10-07-2021 Platelets (Bld) [#/Vol] 340 10*3/uL 150-450 [facility] Work Phone: Serum or plasma calcium gideon urement (mass/volume)on 10-07-2021 Calcium [Mass/Vol] 9.0 mg/dL 8.5-10.1 [facility] Work Phone: Serum or plasma creatinine m easurement (mass/volume)on 10-07-2021 Creatinine [Mass/Vol] 0.82 mg/dL 0.55-1.02 [facility] Work Phone: Comment on above: The validity of the calculated GFR & GFRAA in patients over 70 years has not been determined. Clinical correlation is essential. Serum or plasma urea nitroge n measurement (mass/volume)on 10-07-2021 Urea nitrogen [Mass/Vol] 18 mg/dL 7-18 [facility] Work Phone: Thin prep Papanicolaou smear with manual screeningon 10-07-2021 Thin prep Papanicolaou smear with manual screening 7 5-15 [facility] Work Phone: Basophil percentageon 2021 Bilirubin [Mass/Vol] 0.30 mg/dL 0.20-1.00 [facility] Work Phone: Comment on above: For patients on eltr ombopag therapy, use of Dimension [place] TBIL is not recommended. Chloride [Moles/Vol] 105 mmol/L 98-107 [facility] Work Phone: Glucose [Mass/Vol] 97 mg/dL 74-106 [facility] Work Phone: Potassium [Moles/Vol] 4.0 mmol/L 3.5-5.1 [facility] Work Phone: Protein [Mass/Vol] 7.1 g/dL 6.4-8.2 [facility] Work Phone: Sodium [Moles/Vol] 137 mmol/L 136-145 [facility] Work Phone: Laboratory - Chemistry and C hemistry - challengeon 09-20-2021 ALP [Catalytic activity/Vol] 76 U/L 45-117 [facility] Work Phone: ALT [Catalytic activity/Vol] 24 U/L 13-56 [facility] Work Phone: CO2 [Moles/Vol] 26.0 mmol/L 21.0-32.0 [facility] Work Phone: Globulin (S) [Mass/Vol] 3.3 g/dL 2.2-4.2 [facility] Work Phone: Urea nitrogen/Creatinine [Mass ratio] 23.3 mg/mg 10-20 [facility] Work Phone: No Panel Informationon 09-20 Estimated GFR (MDRD) Amer 75 mL/min >60 [facility] Work Phone: Comment on above: GFR Calc Estimated GFR (MDRD) Non-Af Amer 62 mL/min >60 [facility] Work Phone: Comment on above: Non- GFR Calc Vitamin D 25-Hydroxy 36.5 ng/mL [facility] Work Phone: Comment on above: Vitamin D 25(OH) Sta tus Range Deficiency <20 ng/mL (50nmol/L) Insufficiency 20 - 30 ng/mL (50 - 75 nmol/L) Sufficiency 30 - 100 ng/mL (75 - 250 nmol/L) Toxicity >100 ng/mL (>250 nmol/L) Serum or plasma albumin gideon urement (mass/volume)on 09-20-2021 Albumin [Mass/Vol] 3.8 g/dL 3.2-5.0 [facility] Work Phone: Serum or plasma albumin/glob ulin mass ratioon 09-20-2021 Albumin/Globulin [Mass ratio] 1.2 {ratio} 0.9-2.4 [facility] Work Phone: Serum or plasma calcium gideon urement (mass/volume)on 09-20-2021 Calcium [Mass/Vol] 8.4 mg/dL 8.5-10.1 [facility] Work Phone: Serum or plasma creatinine m easurement (mass/volume)on 09-20-2021 Creatinine [Mass/Vol] 0.94 mg/dL 0.55-1.02 [facility] Work Phone: Comment on above: The validity of the calculated GFR & GFRAA in patients over 70 years has not been determined. Clinical correlation is essential. Serum or plasma urea nitroge n measurement (mass/volume)on 09-20-2021 Urea nitrogen [Mass/Vol] 22 mg/dL 7-18 [facility] Work Phone: Thin prep Papanicolaou smear with manual screeningon 09-20-2021 Thin prep Papanicolaou smear with manual screening 11 U/L 15-37 [facility] Work Phone: Thin prep Papanicolaou smear with manual screening 6 5-15 [facility] Work Phone: Whole blood hemoglobin A1c/t otal hemoglobin ratio (mass fraction)on 09-20-2021 HbA1c (Bld) [Mass fraction] 5.5 % 3.8-5.6 [facility] Work Phone: Comment on above: Normal < 5.7 % Predi abetic 5.7 - 6.4 % Diabetic >or= 6.5 % Please note range changes. Vital Signs Date Time Vital Sign Value Performing Clinician Facility 10-06-2024 18:21-0400 Body temperature 97.9 [degF] Dr. Arley Cesar MD Work Phone: [facility] 10-06-2024 18:21-0400 Diastolic blood pressure 89 mm[Hg] Dr. Arley Cesar MD Work Phone: [facility] 10-06-2024 18:21-0400 Heart rate 81 /min Dr. Arley Cesar MD Work Phone: [facility] 10-06-2024 18:21-0400 Respiratory rate 16 /min Dr. Arley eCsar MD Work Phone: [facility] 10-06-2024 18:21-0400 SaO2% (BldA) [Mass fraction] 96 % Dr. Arley Cesar MD Work Phone: [facility] 10-06-2024 18:21-0400 Systolic blood pressure 142 mm[Hg] Dr. Arley Cesar MD Work Phone: [facility] 10-06-2024 15:28-0400 Body mass index (BMI) [Ratio] 29.7 kg/m2 Dr. Arley Cesar MD Work Phone: [facility] 10-06-2024 15:28-0400 Body weight 83.[address] Arley Cesar MD Work Phone: [facility] 10-06-2024 15:25-0400 Body height 167.[address] Arley Cesar MD Work Phone: [facility] 07-28-2024 11:07-0500 Body temperature 100.09 [degF] Ceci Mendes APRN.DROP WIRE ALIGNER Work Phone: [facility] 07-28-2024 11:07-0500 Body weight 85.2 kg Ceci Mendes APRN.[employer] W[employer] AL[employer]ER Work Phone: [facility] 07-28-2024 11:07-0500 Diastolic blood pressure 82 mm[Hg] Ceci Mendes APRN.[employer] W[employer] ALIGNER Work Phone: [facility] 07-28-2024 11:07-0500 Heart rate 103 /min Ceci Mendes APRN.[employer] W[employer] AL[employer]ER Work Phone: [facility] 07-28-2024 11:07-0500 Respiratory rate 18 /min Ceci Mendes APRN.[employer] WIRE ALIGNER Work Phone: [facility] 07-28-2024 11:07-0500 SaO2% (BldA) [Mass fraction] 95 % Ceci Mendes APRN.[employer] W[employer] ALIGNER Work Phone: [facility] 07-28-2024 11:07-0500 Systolic blood pressure 142 mm[Hg] Ceci Mendes APRN.[employer] WIRE ALIGNER Work Phone: [facility] 11-25-2021 17:47-0400 Diastolic Blood Pressure NBP 66 1 YOSVANY OLIVER DPM [facility] 11-25-2021 17:47-0400 Heart rate 80 /min YOSVANY OLIVER DPM [facility] 11-25-2021 17:47-0400 Systolic Blood Pressure NBP 133 1 YOSVANY OLIVER DPM [facility] 11-25-2021 16:45-0400 Diastolic Blood Pressure NBP 69 1 YOSVANY OLIVER DPM [facility] 11-25-2021 16:45-0400 Heart rate 79 /min YOSVANY OLIVER DPM [facility] 11-25-2021 16:45-0400 Systolic Blood Pressure NBP 134 1 YOSVANY OLIVER DPM [facility] 11-25-2021 16:30-0400 Diastolic Blood Pressure NBP 79 1 YOSVANY OLIVER DPM [facility] 11-25-2021 16:30-0400 Heart rate 68 /min YOSVANY OLIVER DPM [facility] 11-25-2021 16:30-0400 Respiratory rate 10 /min YOSVANY OLIVER DPM [facility] 11-25-2021 16:30-0400 Systolic Blood Pressure NBP 133 1 YOSVANY OLIVER DPM [facility] 11-25-2021 16:15-0400 Respiratory rate 13 /min YOSVANY OLIVER DPM [facility] 11-25-2021 16:10-0400 Respiratory rate 13 /min YOSVANY OLIVER DPM [facility] 11-25-2021 15:57-0400 Body temperature 96.8 [degF] YOSVANY OLIVER DPM [facility] 11-25-2021 12:29-0400 Body height 166 cm YOSVANY OLIVER DPM [facility] 11-25-2021 12:29-0400 Body temperature 97.16 [degF] YOSVANY OLIVER DPM [facility] 11-25-2021 12:29-0400 Body weight 77 kg YOSVANY OLIVER DPM [facility] 11-25-2021 12:29-0400 diastolic 88 mm[Hg] YOSVANY OLIVER DPM [facility] 11-25-2021 12:29-0400 Heart rate 72 /min YOSVANY OLIVER DPM [facility] 11-25-2021 12:29-0400 systolic 144 mm[Hg] YOSVANY OLIVER DPM [facility] Encounters Encounter Date Encounter Type Care Provider Facility Start: 01-29-2025 End: 01-29-[address] Arley Cesar MD Work Phone: -[facility] Start: 01-29-2025 End: 01-29-2025 Patient encounter procedure Hemanth Harkins SUPERVISOR ABATTOIR-C -[facility] Work Phone: Start: 01-29-2025 End: 01-29-2025 ambulatory Hemanth Ferguson SUPERVISOR ABATTOIR Facility:[facility] Start: 11-26-2024 End: 11-26-[address] Arley Cesar MD Work Phone: [facility] Work Phone: Start: 11-26-2024 End: 11-26-[address] Arley Cesar MD -Laboratory [facility] Start: 11-26-2024 End: 11-26-2024 ambulatory Arley Cesar Facility:[facility] Start: 10-06-2024 End: 10-06-2024 Emergency department patient visit Dr. Eddy Cleaning MD -Emergency Department Work Phone: Start: 07-28-2024 End: 07-28-2024 ambulatory ARLEY CESAR Facility:[facility] Start: 07-28-2024 End: 07-28-2024 Patient encounter procedure Ceci Mendes COMPANY MANAGER.[employer] W[employer] ALIGN[employer] Work Phone: [facility] Comment on above: Viral illness (Prima ry Dx) Start: 07-11-2024 End: 07-11-2024 ambulatory [facility] Facility:[facility] Start: 08-16-2023 End: 08-16-2023 ambulatory [facility] Work Phone: Start: 08-16-2023 End: 08-16-2023 Patient encounter procedure [facility] Work Phone: Start: 06-02-2023 End: 06-02-2023 ambulatory [facility] Work Phone: Start: 06-02-2023 End: 06-02-2023 Patient encounter procedure [facility] Work Phone: Start: 10-28-2022 End: 10-28-2022 ambulatory [facility] Work Phone: Start: 10-28-2022 End: 10-28-2022 Patient encounter procedure [facility] Start: 10-19-2022 End: 10-19-2022 ambulatory [facility] Work Phone: Start: 10-19-2022 End: 10-19-2022 Patient encounter procedure [facility] Start: 05-24-2022 End: 05-24-2022 ambulatory [facility] Work Phone: Start: 05-24-2022 End: 05-24-2022 Patient encounter procedure [facility] Start: 05-04-2022 End: 05-04-2022 ambulatory [facility] Work Phone: Start: 05-04-2022 End: 05-04-2022 Patient encounter procedure [facility] Start: 02-02-2022 Registered Recurring [facility] Start: 11-25-2021 End: 11-25-2021 SAME DAY STAY YOSVANY OLIVER DPM [facility] Start: 11-02-2021 End: 11-02-2021 Patient encounter procedure [facility] Start: 10-07-2021 End: 10-07-2021 Patient encounter procedure [facility] Start: 09-20-2021 End: 09-20-2021 Patient encounter procedure [facility] Start: 08-19-2021 End: 08-19-2021 Patient encounter procedure [facility] Procedures Date Procedure Procedure Detail Performing Clinician Start: 01-29-2025 Plain X-ray of shoulder Dr. Arley Cesar MD Work Phone: Start: 11-26-2024 Vitamin D, 25-hydrox y measurement Dr. Arley Cesar MD Work Phone: Comment on above: Vitamin D StatusDefi ciency: <20 ng/mL (50nmol/L)Insufficiency: 20-30 ng/mL (50-75 nmol/L)Sufficiency: 30-100 ng/mL (75-250 nmol/L)Toxicity: >100 ng/mL (>250 nmol/L) Start: 10-06-2024 Urnls dip stick/tabl et reagent auto microscopy Dr. Arley Cesar MD Work Phone: Start: 10-06-[address] Arley Cesar MD Work Phone: Start: 10-06-2024 SARS-CoV-2, Influenz a & RSV (PCR) Dr. Arley Cesar MD Work Phone: Start: 10-06-[address] Arley Cesar MD Work Phone: Start: 07-28-2024 INFLUENZA A&B MOLECU LAR (POC) Ceci Mendes APRN.[employer] WIRE ALIGNER Work Phone: Start: 08-16-2023 Plain chest X-ray Start: 06-02-2023 Screening mammography Start: 05-24-2022 Plain X-ray of tibia and fibula Start: 05-04-2022 Screening mammography Start: 11-25-2021 Posterior calcaneal exostosis (pump bump) (disorder) YOSVANY OLIVER DPM Start: 11-02-2021 Plain chest X-ray Start: 08-19-2021 X-ray of both feet Decompression of med caitie nerve YOSVANY OLIVER DPM Comment on above: bilateral Extraction of cataract POLA OLIVER DPM Comment on above: bilateral H/O: surgery S/p bilateral ca rpal tunnel release History of appendectomy ELIDA LAMAS BENITO DPM History of decompres thomas of median nerve S/p bilateral carpal tunnel release Hysterectomy YOSVANY Olmos DPM Plan of Treatment Date Care Activity Detail Author Start: 08-30-2032 Urine microalbumin profile DTaP,Tdap,Td Vaccine (3 - Td or Tdap) [facility] Start: 07-10-2027 Screening for malign ant neoplasm of colon [facility] Start: 01-01-2027 RSV Vaccine (1 - 1-d ose 75+ series) RSV Vaccine (1 - 1-dose 75+ series) [facility] Start: 10-06-2024 [facility] Start: 06-12-2024 Advance Directive Discussion Advance Directive Discussion [facility] Start: 02-11-2024 Covid-19 Vaccine () Covid-19 Vaccine () [facility] Start: 01-24-2019 Screening for malign ant neoplasm of breast Mammogram Screening [facility] Start: 01-01-1997 Diabetes Screening Diabetes Screenin g [facility] Start: 01-01-1997 Lipid panel Lipid Screening [facility] Start: 01-01-1997 Screening for malign ant neoplasm of colon [facility] Start: 01-01-1970 Anxiety Screening Anxiety Screening [facility] Start: 01-01-1970 Depression Screening Depression Scre ening [facility] Start: 01-01-1970 Hepatitis C screening Hepatitis C [facility] Patient Education ED Gastroenter itis, Viral (Adult) [facility] Work Phone: Patient referral [facility] Work Phone: Immunizations Immunization Date Immunization Notes Care Provider Eduar martinez 09-07-2020 [facility] ([facility]) [facility] 08-10-2020 [facility] [place] [facility] Payers Date Payer Category Payer Private Health Insurance [facility] [id number] 2024 Self-pay [id number] 2019 Unknown [id number] 2016 Medicare MEDICARE [id number] Medicare [id number] Medicare [id number] Unknown [id number] Unknown [id number] Unknown [id number] Unknown [id number] Social History Date Type Detail Facility Start: 11-12-2020 End: 11-12-2020 Tobacco smoking status NHIS Unknown if ever smoked [facility] Start: 1950 Sex Assigned At Female [facility] Work Phone: Start: 11-12-2021 End: 10-06-2024 Tobacco smoking status Never smoked tobacco (finding) [facility] Start: 1950 Sex assigned at Not on file [facility] Gender identity Not on file [facility] in Functional Status Date Assessment Result Facility 11-25-2021 Functional Status Awake, Up with assistance [facility] 11-25-2021 Functional Status elevated on pi llows, ice on [facility] 11-25-2021 Functional Status [facility] 11-25-2021 Functional Status Maintained, More than 8 hours [facility] Mental Status Date Assessment Result Facility 11-25-2021 Mental Status Orientation Oriented x 4 [facility] 11-25-2021 [facility] Mental Status [facility] Radiology Diagnostic study note 01-29-2025 Note Date & Type Note Facility 01-29-2025 Radiology Diagnostic study note [facility] Imaging Services [address] [place] [id number] Shoulder min 2 Views MR#: [id number] Acct: [id number] Name: CHARLY OSBORNE Rep #: [id number] : 1950 F 75 From: Yayo Figueroa MD PCP: Dr. Arley Cesar MD Status: RE G CLI Study:Shoulder min 2 Views Date of Exam: 01/29/25 Exam# [id number] Ordering Dr: Hemanth Harkins SUPERVISOR ABATTOIR SUPERVISOR ABATTOIR-C PROCEDURE: SHOULDER MIN 2 VIEWS 01/29/2025 REASON FOR EXAM: SHOULDER PAIN TECHNIQUE: SHOULDER MIN 2 VIEWS Laterality: FINDINGS: No evidence of acute fracture or dislocation. Moderate acromioclavicular and mild glenohumeral degenerative changes. RAD/Shoulder min 2 Views IMPRESSION: Osteoarthrosis. Reading Location: [id number] CC: Hemanth ARRIOLA NP-C [place]; Dr. Arley Cesar MD ~ Customer Assistance Representative: Signed [facility] Progress note 07-28-2024 Note Date & Type Note Facility 07-28-2024 Note HNO ID: [id number] Author: CECI MENDES APRN.DROP WIRE ALIGNER Service: ? Author Type: Nurse Practitioner Type: Progress Notes Filed: 07/28/2024 11:32 Note Text: This note was created using [employer]. Subjective Charly Osborne is a 74 year old female. Presents for 2 day history of fever, chills, fatigue, cough and vomiting. Patient reports she has vomited 2-3 times over the past couple of days. Denies SOB, CP, abdominal pain, diarrhea. Objective BP 142/82 Pulse 103 Temp 37.8 ?C (100.1 ?F) (Tympanic) Resp 18 Wt 85.2 kg (187 lb 13.3 oz) SpO2 95% Physical Exam PHYSICAL EXAMINATION: General appearance: Well appearing, alert, in no acute distress, well-hydrated, well nourished. Nose/Sinuses: Positive findings: mucosa erythematous and swollen, purulent rhinorrhea Oropharynx: Lips, mucosa, and tongue normal, teeth and gums normal, oropharynx normal Neck: Supple, no adenopathy; thyroid symmetric, normal size, no bruits Lungs: Lungs clear to auscultation. No wheezing, rhonchi, rales. Heart: RRR without murmur, gallop, or rubs. No ectopy Abdomen: Normal abdominal exam, Abdomen soft, non-tender. Bowel sounds normal. No masses, organomegaly Assessment and Plan ASSESSMENT/PLAN: 1. Viral illness - ICD9: 079.99, ICD10: B34.9 - Discussed viral etiology and rationale for treatment. - Symptomatic treatment with prn analgesia - Supportive care with fluids and rest - The patient may also use OTC cough and cold meds as needed, warm salt water gargles, throat lozenges and/or OTC throat spray as needed, and nasal saline gtts and suction prn. - Follow up in 3-5 days if symptoms persist or sooner if worsening of symptoms - INFLUENZA AANDB MOLECULAR (POC) - OSELTAMIVIR 75 MG CAPSULE Ceci Mendes APRN.ELIZABETH [facility] History of Present illness Narrative 07-28-2024 Ceci Mendes APRN.ELIZABETH - 07/28/2024 11:15 AM EST Note Date & Type Note Facility 07-28-2024 History of Presen t illness Narrative This note was created using [employer]. Subjective Charly Osborne is a 74 year old female. Presents for 2 day history of fever, chills, fatigue, cough and vomiting. Patient reports she has vomited 2-3 times over the past couple of days. Denies SOB, CP, abdominal pain, diarrhea. Objective BP 142/82 Pulse 103 Temp 37.8 C (100.1 F) (Tympanic) Resp 18 Wt 85.2 kg (187 lb 13.3 oz) SpO2 95% Physical Exam PHYSICAL EXAMINATION: General appearance: Well appearing, alert, in no acute distress, well-hydrated, well nourished. Nose/Sinuses: Positive findings: mucosa erythematous and swollen, purulent rhinorrhea Oropharynx: Lips, mucosa, and tongue normal, teeth and gums normal, oropharynx normal Neck: Supple, no adenopathy; thyroid symmetric, normal size, no bruits Lungs: Lungs clear to auscultation. No wheezing, rhonchi, rales. Heart: RRR without murmur, gallop, or rubs. No ectopy Abdomen: Normal abdominal exam, Abdomen soft, non-tender. Bowel sounds normal. No masses, organomegaly Assessment and Plan ASSESSMENT/PLAN: 1. Viral illness - ICD9: 079.99, ICD10: B34.9 - Discussed viral etiology and rationale for treatment. - Symptomatic treatment with prn analgesia - Supportive care with fluids and rest - The patient may also use OTC cough and cold meds as needed, warm salt water gargles, throat lozenges and/or OTC throat spray as needed, and nasal saline gtts and suction prn. - Follow up in 3-5 days if symptoms persist or sooner if worsening of symptoms - INFLUENZA A&B MOLECULAR (POC) - OSELTAMIVIR 75 MG CAPSULE Ceci Mendes APRN.DROP WIRE ALIGNER documented in this encounter [facility] Discharge instructions 11-25-2021 Note Date & Type Note Facility 11-25-2021 Hospital Discharg e instructions Patient Education 11/25/2021 16:41:03 Achilles Tendon Tear Repair, Care After Achilles Tendon Tear Repair, Care After This sheet gives you information about how to care for yourself after your procedure. Your health care provider may also give you more specific instructions. If you have problems or questions, contact your health care provider. What can I expect after the procedure? After the procedure, it is common to have: Numbness in your foot. This should go away within 24 hours. Pain. It may take 6 months before you can return to your regular activity level. However, complete recovery can take a year or longer. Follow these instructions at home: Medicines Take oajw-fia-jzdjyqo and prescription medicines only as told by your health care provider. If you were prescribed an antibiotic medicine, take it as told by your health care provider. Do not stop taking the antibiotic even if your condition improves. Ask your health care provider if the medicine prescribed to you: ?Requires you to avoid driving or using heavy machinery. ?Can cause constipation. You may need to take these actions to prevent or treat constipation: ?Drink enough fluid to keep your urine pale yellow. ?Take jyyb-aph-jhgntor or prescription medicines. ?Eat foods that are high in fiber, such as beans, whole grains, and fresh fruits and vegetables. ?Limit foods that are high in fat and processed sugars, such as fried and sweet foods. If you have a splint or boot: Wear the splint or boot as told by your health care provider. Remove it only as told by your health care provider. Loosen it if your toes tingle, become numb, or turn cold and blue. Keep it clean and dry. If you have a cast: Do not put pressure on any part of the cast until it is fully hardened. This may take several hours. Do not stick anything inside the cast to scratch your skin. Doing that increases your risk of infection. Check the skin around the cast every day. Tell your health care provider about any concerns. You may put lotion on dry skin around the edges of the cast. Do not put lotion on the skin underneath the cast. Keep it clean and dry. Bathing Do not take baths, swim, or use a hot tub until your health care provider approves. Ask your health care provider if you may take showers. You may only be allowed to take sponge baths. If the splint, boot, or cast is not waterproof: ?Do not let it get wet. ?Cover it with a watertight covering when you take a bath or a shower. Incision care Follow instructions from your health care provider about how to take care of your incision. Make sure you: ?Wash your hands with soap and water before and after you change your bandage (dressing). If soap and water are not available, use hand surgical assist. ?Change your dressing as told by your health care provider. ?Leave stitches (sutures) or catalino in place. These skin closures may need to stay in place for 2 weeks or longer. If you have a removable splint or boot, check your incision area every day for signs of infection. Check for: ?More redness, swelling, or pain. ?Fluid or blood. ?Warmth. ?Pus or a bad smell. Managing pain, stiffness, and swelling If directed, put ice on the injured area. To do this: ?If you have a removable splint or boot, remove it as told by your health care provider. ?Put ice in a plastic bag. ?Place a towel between your skin and the bag or between your cast and the bag. ?Leave the ice on for 20 minutes, 2 3 times a day. Move your toes often to reduce stiffness and swelling. Raise (elevate) your leg above the level of your heart while you are sitting or lying down. Activity Do not walk on or put weight on your injured leg. Use crutches or another walking aid, such as a walking boot. Follow instructions from your health care provider on how to move your ankle and how much weight you can put on your leg. If you have a cast, boot, or splint, you should receive these instructions after it is removed. Follow your rehab plan. Do exercises as told by your health care provider or physical therapist. Do not return to physical activity or sports until you are cleared by your health care provider or physical therapist. General instructions Ask your health care provider when it is safe to drive if you have a splint, boot, or cast on your leg. See a physical therapist if directed by your health care provider. Do not use any products that contain nicotine or tobacco, such as cigarettes, e-cigarettes, and chewing tobacco. These can delay incision healing after surgery. If you need help quitting, ask your health care provider. Keep all follow-up visits as told by your health care provider. This is important. If you have a cast or splint, your health care provider will remove it about 2 weeks after surgery. If you have sutures, they will also be removed during this time. Contact a health care provider if: You have chills. You have any of these signs of infection: ?More redness, swelling, or pain around your incision. ?Fluid or blood coming from your incision. ?Warmth coming from your incision. ?Pus or a bad smell coming from your incision. ?A fever. Your pain medicine is not working. You have persistent numbness, tingling, or burning in your foot or toes. Your splint, boot, or cast feels too tight, even after loosening the splint or boot. You cannot wiggle your toes. You notice cracks or soft spots on your cast. Get help right away if: You have severe swelling, pain, or numbness that is getting worse. You are bleeding through your splint, boot, or cast. You have chest pain. You have trouble breathing. Summary After your procedure, it is common to have pain and numbness in your foot. Numbness should go away within 24 hours after surgery. If you have a splint or boot, loosen it if your toes tingle, become numb, or turn cold and blue. Keep the splint or boot clean and dry. If you have a cast, do not put pressure on it until it hardens. To avoid infections, do not stick objects under the cast to scratch the skin and do not put lotion under the cast. Keep the cast clean and dry. Follow instructions about caring for your incision, avoiding some activities, taking medicines, and keeping follow-up visits. This information is not intended to replace advice given to you by your health care provider. Make sure you discuss any questions you have with your health care provider. Document Released: 02/01/2005 Document Revised: 11/06/2019 Document Reviewed: 11/06/2019 [employer] Patient Education 2020 [employer]. 11/25/2021 16:40:25 General Anesthesia, Adult, Care After General Anesthesia, Adult, Care After This sheet gives you information about how to care for yourself after your procedure. Your health care provider may also give you more specific instructions. If you have problems or questions, contact your health care provider. What can I expect after the procedure? After the procedure, the following side effects are common: Pain or discomfort at the IV site. Nausea. Vomiting. Sore throat. Trouble concentrating. Feeling cold or chills. Weak or tired. Sleepiness and fatigue. Soreness and body aches. These side effects can affect parts of the body that were not involved in surgery. Follow these instructions at home: For at least 24 hours after the procedure: Have a responsible adult stay with you. It is important to have someone help care for you until you are awake and alert. Rest as needed. Do not: ?Participate in activities in which you could fall or become injured. ?Drive. ?Use heavy machinery. ?Drink alcohol. ?Take sleeping pills or medicines that cause drowsiness. ?Make important decisions or sign legal documents. ?Take care of children on your own. Eating and drinking Follow any instructions from your health care provider about eating or drinking restrictions. When you feel hungry, start by eating small amounts of foods that are soft and easy to digest (bland), such as toast. Gradually return to your regular diet. Drink enough fluid to keep your urine pale yellow. If you vomit, rehydrate by drinking water, juice, or clear broth. General instructions If you have sleep apnea, surgery and certain medicines can increase your risk for breathing problems. Follow instructions from your health care provider about wearing your sleep device: ?Anytime you are sleeping, including during daytime naps. ?While taking prescription pain medicines, sleeping medicines, or medicines that make you drowsy. Return to your normal activities as told by your health care provider. Ask your health care provider what activities are safe for you. Take naag-red-bbfymnm and prescription medicines only as told by your health care provider. If you smoke, do not smoke without supervision. Keep all follow-up visits as told by your health care provider. This is important. Contact a health care provider if: You have nausea or vomiting that does not get better with medicine. You cannot eat or drink without vomiting. You have pain that does not get better with medicine. You are unable to pass urine. You develop a skin rash. You have a fever. You have redness around your IV site that gets worse. Get help right away if: You have difficulty breathing. You have chest pain. You have blood in your urine or stool, or you vomit blood. Summary After the procedure, it is common to have a sore throat or nausea. It is also common to feel tired. Have a responsible adult stay with you for the first 24 hours after general anesthesia. It is important to have someone help care for you until you are awake and alert. When you feel hungry, start by eating small amounts of foods that are soft and easy to digest (bland), such as toast. Gradually return to your regular diet. Drink enough fluid to keep your urine pale yellow. Return to your normal activities as told by your health care provider. Ask your health care provider what activities are safe for you. This information is not intended to replace advice given to you by your health care provider. Make sure you discuss any questions you have with your health care provider. Document Released: 09/04/2001 Document Revised: 06/01/2018 Document Reviewed: 01/12/2018 [employer] Patient Education 2020 [employer]. 11/25/2021 16:40:10 Nausea and Vomiting, Adult Nausea and Vomiting, Adult Nausea is the feeling that you have an upset stomach or that you are about to vomit. Vomiting is when stomach contents are thrown up and out of the mouth as a result of nausea. Vomiting can make you feel weak and cause you to become dehydrated. Dehydration can make you feel tired and thirsty, cause you to have a dry mouth, and decrease how often you urinate. Older adults and people with other diseases or a weak disease-fighting system (immune system) are at higher risk for dehydration. It is important to treat your nausea and vomiting as told by your health care provider. Follow these instructions at home: Watch your symptoms for any changes. Tell your health care provider about them. Follow these instructions to care for yourself at home. Eating and drinking Take an oral rehydration solution (ORS). This is a drink that is sold at pharmacies and retail stores. Drink clear fluids slowly and in small amounts as you are able. Clear fluids include water, ice chips, low-calorie sports drinks, and fruit juice that has water added (diluted fruit juice). Eat bland, ccpj-na-klsymr foods in small amounts as you are able. These foods include bananas, applesauce, rice, lean meats, toast, and crackers. Avoid fluids that contain a lot of sugar or caffeine, such as energy drinks, sports drinks, and soda. Avoid alcohol. Avoid spicy or fatty foods. General instructions Take szqh-gyh-fnyzgna and prescription medicines only as told by your health care provider. Drink enough fluid to keep your urine pale yellow. Wash your hands often using soap and water. If soap and water are not available, use hand surgical assist. Make sure that all people in your household wash their hands well and often. Rest at home while you recover. Watch your condition for any changes. Breathe slowly and deeply when you feel nauseated. Keep all follow-up visits as told by your health care provider. This is important. Contact a health care provider if: Your symptoms get worse. You have new symptoms. You have a fever. You cannot drink fluids without vomiting. Your nausea does not go away after 2 days. You feel light-headed or dizzy. You have a headache. You have muscle cramps. You have a rash. You have pain while urinating. Get help right away if: You have pain in your chest, neck, arm, or jaw. You feel extremely weak or you faint. You have persistent vomiting. You have vomit that is bright red or looks like black coffee grounds. You have bloody or black stools or stools that look like tar. You have a severe headache, a stiff neck, or both. You have severe pain, cramping, or bloating in your abdomen. You have difficulty breathing, or you are breathing very quickly. Your heart is beating very quickly. Your skin feels cold and clammy. You feel confused. You have signs of dehydration, such as: ?Dark urine, very little urine, or no urine. ?Cracked lips. ?Dry mouth. ?Sunken eyes. ?Sleepiness. ?Weakness. These symptoms may represent a serious problem that is an emergency. Do not wait to see if the symptoms will go away. Get medical help right away. Call your local emergency services (911 in the [place] Do not drive yourself to the hospital. Summary Nausea is the feeling that you have an upset stomach or that you are about to vomit. As nausea gets worse, it can lead to vomiting. Vomiting can make you feel weak and cause you to become dehydrated. Follow instructions from your health care provider about eating and drinking to prevent dehydration. Take qjbh-ups-miflgnu and prescription medicines only as told by your health care provider. Contact your health care provider if your symptoms get worse, or you have new symptoms. Keep all follow-up visits as told by your health care provider. This is important. This information is not intended to replace advice given to you by your health care provider. Make sure you discuss any questions you have with your health care provider. Document Released: 05/29/2006 Document Revised: 09/20/2019 Document Reviewed: 11/06/2018 [employer] Patient Education 2020 [employer]. Follow Up Care 11/01/2021 14:31:35 With:YOSVANY OLIVER Address: [address] [place] [address] [place] [address]- [phone] Business (1) When: Unknown Comments:KEEP SCHEDULED FOLLOW UP APPOINTMENT. [facility] Evaluation + Plan note Note Date & Type Note Facility Evaluation + Plan note No data available for this section [facility] Evaluation note Note Date & Type Note Facility Evaluation note No assessment information availa [facility] Work Phone: Evaluation note Note Date & Type Note Facility Evaluation note Diagnosis Viral illness- Primary Unspecified viral infection, in conditions classified elsewhere and of unspecified site documented in this encounter [facility] Progress note Note Date & Type Note Facility Progress note No data available for this section [facility] Reason for referral (narrative) Note Date & Type Note Facility Reason for referral (narrative) No reason for referral information available [facility] Work Phone: Family History No Family History Records Found Relationship Condition Age at Onset Recorded Date/T joanna mother Malignant neoplasm Unknown Cardiac disease Unknown father Cardiac disease Unknown Advance Directives No Advanced Directives Records Found Advance Directive Response Recorded Date/ Time Living Will No November 12, 2020 2 :43pm Power of Violin Tutor No November 12, 2020 2:43pm Advance Directive Response Recorded Date/ Time Living Will No November 12, 2020 1 :43pm Power of Violin Tutor No November 12, 2020 1:43pm Advance Directive Response Recorded Date/ Time Do you have a Healthcare Power of Violin Tutor? No October 06, 2024 3:31pm Chief Complaint and Reason for Visit Chief Complaint add chest xray Chief Complaint LEFT ACHILLES TENDON . RX HERE SCREENING Chief Complaint SCREENING PAIN IN LEFT LOYA Chief Complaint SCREENING Chief Complaint SCREENING XRAY PA/LAT Chief Complaint Admit Date abd pain, N/V October 06, 2024 3:2 3pm Chief Complaint Admit Date RIGHT SHOULDER January 29, 2025 11 :40am Summary Purpose Additional Source Comments Goals (unrecognized section and content) Goals may be documented in a n alternate sectionGoals may be documented in an alternate section No data available for this sectionGoals may be documented in an alternate sectionGoals may be documented in an alternate sectionGoals may be documented in an alternate sectionGoals may be documented in an alternate sectionGoals may be documented in an alternate sectionGoals may be documented in an alternate sectionGoals may be documented in an alternate sectionGoals may be documented in an alternate sectionGoals may be documented in an alternate section Care Team (unrecognized sect ion and content) Team Status: Active Member Role Status Dates Dr. Arley Cesar MD Family Provider Active Dr. Arley Cesar MD Primary Care Provider Active Team Status: Inactive Member Role Status Dates Dr. Arley Cesar MD Primary Care Provider Active Alison Mclain SUPERVISOR ABATTOIR, SUPERVISOR ABATTOIR-C Attending Provider Active Team Status: Inactive Member Role Status Dates Dr. Arley Cesar MD Primary Care Pr ovider, Attending Provider, Referring Provider Active Team Status: Inactive Member Role Status Dates Dr. Arley Cesar MD Primary Care Provider, Attend ing Provider Active Team Status: Inactive Member Role Status Dates Dr. Arley Cesar MD Primary Care Provider Active Didi Hernandez MD Attending Provider, Referring Provide r Active Team Status: Inactive Member Role Status Dates Dr. Arley Cesar MD Primary Care Provider Active Dr. Alcides Stinson MD Attending Provider, Referrin g Provider Active Bundler Relationship Specialty Start Date End Date Arley Cesar MD [address] [place] [address] PCP - General Family Medicine 07/28/24 Team Status: Active Member Role Status Dates Dr. Arley Cesar MD Primary Care Provider Active Team Status: Inactive Member Role Status Dates Dr. Arley Cesar MD Primary Care Provider Active Start: October 06, 2024 End: October 06, 2024 Dr. Eddy Cleaning MD Attending Provider Active Sta rt: October 06, 2024 End: October 06, 2024 Dr. Eddy Cleaning MD Referring Provider Active Sta rt: October 06, 2024 End: October 06, 2024 Dr. Eddy Cleaning MD Emergency Provider Active Sta rt: October 06, 2024 End: October 06, 2024 Team Status: Inactive Member Role Status Dates Dr. Arley Cesar MD Primary Care Provider Active Start: November 26, 2024 End: November 26, 2024 Dr. Arley Cesar MD Attending Provider Active Start: November 26, 2024 End: November 26, 2024 Dr. Arley Cesar MD Referring Provider Active Start: November 26, 2024 End: November 26, 2024 Team Status: Active Member Role/Relationship Status Dates Dr. Arley Cesar MD Primary Care Provider Active Team Status: Inactive Member Role/Relationship Status Dates Dr. Arley Cesar MD Primary Care Provider Active Start: November 26, 2024 End: November 26, 2024 Dr. Arley Cesar MD Attending Provider Active Start: November 26, 2024 End: November 26, 2024 Dr. Arley Cesar MD Referring Provider Active Start: November 26, 2024 End: November 26, 2024 Team Status: Inactive Member Role/Relationship Status Dates Dr. Arley Cesar MD Primary Care Provider Active Start: January 29, 2025 End: January 29, 2025 Hemanth Harkins SUPERVISOR ABATTOIR, SUPERVISOR ABATTOIR-C Attending Provider Active Start: January 29, 2025 End: January 29, 2025 Hemanth Harkins SUPERVISOR ABATTOIR, SUPERVISOR ABATTOIR-C Referring Provider Active Start: January 29, 2025 End: January 29, 2025 INFORMATION SOURCE (unrecogn ized section and content) DATE CREATED AUTHOR 11/30/2021 [facility] ([place]) DATE CREATED AUTHOR AUTHOR'S ORGANIZ ATION 07/29/2024 [facility] DATE CREATED AUTHOR AUTHOR'S ORGANIZ ATION 02/07/[address] [facility] Source Comments (unrecognize d section and content) In the event this informatio n is protected by the Federal Confidentiality of Alcohol and Drug Abuse Patient Records regulations: The Federal rules restrict any use of the information to criminally investigate or prosecute any alcohol or drug abuse patient.[facility] Reason for Visit (unrecogniz ed section and content) Reason Comments Cough Cough, vomiting, wes al congestion, fatigue and upset stomach x 2 days FOR RECORDS PERTAINING TO PATIENTS WHO ARE OR HAVE BEEN ENROLLED IN A CHEMICAL DEPENDENCY/SUBSTANCEABUSE PROGRAM, SOME INFORMATION MAY BE OMITTED. This clinical summary was aggregated from multiple sources. Caution should be exercised in using it in the provision of clinical care. This summary normalizes information from multiple sources, and as a consequence, information in this document may materially change the coding, format and clinical context of patient data. In addition, data may be omitted in some cases. CLINICAL DECISIONS SHOULD BE BASED ON THE PRIMARY CLINICAL RECORDS. [employer] [facility]. provides no warranty or guarantee of the accuracy or completeness of information in this document.
[2025-06-03 15:08] LABS: Hematocrit 42.7 % (37-47); Hemoglobin 13.5 g/dL (12.0-15.0); Immature Granulocytes Count 0.030 X10^3/uL (0.0-0.0); Mean Corp Hgb Conc 31.6 g/dL (32-36); Mean Corpuscular Volume 88.4 fL (81-99); Mean Platelet Vol. 9.8 fl (6.2-12.0); NRBC Flagged by Analyzer 0 % (0-5); Platelet Count 349 K/mm3 (150-450); RBC Distribution Width CV 12.3 % (11.6-14.6); RBC Distribution Width SD 40.2 fl (35.1-43.9); Red Blood Count 4.83 M/mm3 (4.2-5.4); White Blood Count 6.8 K/mm3 (4.4-11.0)
[2025-06-03 15:44] LABS: AST(SGOT) 14 U/L (<=31); Alanine Aminotransfer ALT/SGPT 17 U/L (<=34); Albumin, Serum 4.3 g/dL (3.4-4.8); Alkaline Phosphatase 79 U/L (35-104); Anion Gap 10 (7-18); BUN 18 mg/dL (4-19); BUN/Creat Ratio 19.5 RATIO (10-20); Calcium,Total 9.4 mg/dL (7.6-11.0); Carbon Dioxide 26.8 mmol/L (20.0-29.0); Chloride 105 mmol/L (96-106); Globulin 2.4 g/dL (2.2-4.2); Glucose 97 mg/dL (70-99); Potassium 3.8 mmol/L (3.5-5.1); Vitamin D,25 Hydroxy 39.8 ng/mL (30-100)
== END | disposition home or self-care (01) ==
LOC: MTLAB 13:22
PROVIDERS: PCP Family Medicine; Referring Provider Family Medicine; Visit Provider Family Medicine
DX: E55.9 Vitamin D deficiency, unspecified (principal); R73.02 Impaired glucose tolerance (oral)
CPT/HCPCS: 36415; 80053; 82306; 83036; 85025